=== PATIENT | female | born 1970 | race American Indian/Alaskan Native ===

== ENCOUNTER 2019-05-13 23:52 | Inpatient (IN) | payer MEDICAID ==
--- NOTE | 2019-05-14 00:13 | EDM.PDOC ---
ED HPI GENERAL MEDICAL PROBLEM - General Chief Complaint: Diabetic Complaint Stated Complaint: [facility] Time Seen by Provider: 05/14/19 00:03 - History of Present Illness INITIAL COMMENTS - FREE TEXT/NARRATIVE: 48-year-old female presents to the emergency room with some diabetic complications The patient was on a bus ride from [place] to [place] but could not give herself her insulin because she did not have needles. Patient also complains that she has had a cough for about a week. And her leg hurts apparently this is chronic. 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 She denies chest pain breathing difficulties or shortness of breath she has had no nausea vomiting or abdominal difficulties. Headache Pain Score (Numeric/FACES): 6 - Related Data Allergies Allergy/AdvReac Type Severity Reaction Status Date / Time No Known Allergies Allergy Verified 05/13/19 23:58 Home Meds: Home Meds . [Unable to Verify Home Med List] 05/14/19 [History] ED ROS GENERAL - Review of Systems Review Of Systems: See Below Constitutional: Reports: No Symptoms. Denies: Fever, Chills HEENT: Reports: No Symptoms Respiratory: Reports: Cough. Denies: Sputum Cardiovascular: Reports: No Symptoms Endocrine: Reports: No Symptoms GI/Abdominal: Reports: No Symptoms, Mucous in Stool : Reports: No Symptoms Musculoskeletal: Reports: Other (Leg pain almost suspect neuropathy) ED EXAM GENERAL NO PERIP PULSE - Physical Exam Exam: See Below Exam Limited By: No Limitations General Appearance: Alert, Other (Anxious and possibly under the influence of something) Eye Exam: Bilateral Eye: Normal Inspection Ears: Normal External Exam, Normal Canal, Hearing Grossly Normal, Normal TMs Nose: Normal Inspection, Normal Mucosa, No Blood Throat/Mouth: Normal Inspection, Normal Lips, Normal Gums, Normal Oropharynx, Normal Voice, No Airway Compromise Head: Atraumatic, Normocephalic Neck: Normal Inspection, Supple, Non-Tender, Full Range of Motion Respiratory/Chest: No Respiratory Distress, Lungs Clear, Other (Frequent cough sounds to be mostly dry) Cardiovascular: Regular Rate, Rhythm, No Edema, No Murmur GI/Abdominal: Normal Bowel Sounds, Soft, Non-Tender Back Exam: Normal Inspection. No: CVA Tenderness (L), CVA Tenderness (R) Extremities: Other (Right BKA) Neurological: Alert Psychiatric: Anxious Skin Exam: Warm, Dry, Intact Course - Vital Signs Last Recorded V/S: Last Vital Signs Temp 36.9 C 05/13/19 23:58 Pulse 109 H 05/13/19 23:58 Resp 18 05/13/19 23:58 BP 138/102 H 05/13/19 23:58 Pulse Ox 99 05/14/19 22:29 - Orders/Labs/Meds Orders: Active Orders 24 hr Category Date Time Status POC Glucose [Blood Glucose Check, Bedside] [RC] ONETIME Care 05/14/19 01:45 Active RT Aerosol Therapy [RC] ASDIRECTED Care 05/14/19 22:29 Active Head wo Cont [CT] Stat Exams 05/14/19 22:33 Taken Labs: Laboratory Tests 05/14/19 05/14/19 05/14/19 Range/Units 00:34 00:34 00:34 WBC 9.65 (3.98-10.04) K/mm3 RBC 3.86 L (3.98-5.22) M/mm3 Hgb 9.6 L (11.2-15.7) gm/dl Hct 30.7 L (34.1-44.9) % MCV 79.5 (79.4-94.8) fl MCH 24.9 L (25.6-32.2) pg MCHC 31.3 L (32.2-35.5) g/dl RDW Std Deviation 44.5 (36.4-46.3) fL Plt Count 356 (182-369) K/mm3 MPV 10.1 (9.4-12.3) fl Neutrophils % (Manual) 59 (40-60) % Band Neutrophils % 0 (0-10) % Lymphocytes % (Manual) 30 (20-40) % Atypical Lymphs % 0 % Monocytes % (Manual) 8 (2-10) % Eosinophils % (Manual) 2 (0.7-5.8) % Basophils % (Manual) 1 (0.1-1.2) Platelet Estimate Adequate Plt Morphology Comment See note Hypochromasia 2+ moderate Anisocytosis 2+ moderate Microcytosis 1+ slight RBC Morph Comment Abnormal Sodium 135 L (136-145) mEq/L Potassium 4.4 (3.5-5.1) mEq/L Chloride 104 (98-107) mEq/L Carbon Dioxide 21 (21-32) mEq/L Anion Gap 14.4 (5-15) BUN 27 H (7-18) mg/dL Creatinine 1.9 H (0.55-1.02) mg/dL Est Cr Clr Drug Dosing 35.73 mL/min Estimated GFR (MDRD) 28 (>60) mL/min BUN/Creatinine Ratio 14.2 (14-18) Glucose 198 H (74-106) mg/dL POC Glucose (70-105) mg/dL Calcium 7.6 L (8.5-10.1) mg/dL Total Bilirubin 0.3 (0.2-1.0) mg/dL AST 9 L (15-37) U/L ALT 64 H (14-59) U/L Alkaline Phosphatase 281 H (46-116) U/L Total Protein 6.3 L (6.4-8.2) g/dl Albumin 2.4 L (3.4-5.0) g/dl Globulin 3.9 gm/dL Albumin/Globulin Ratio 0.6 L (1-2) TSH 3rd Generation (0.358-3.74) uIU/mL Urine Color (Yellow) Urine Appearance (Clear) Urine pH (5.0-8.0) Ur Specific [place] (1.005-1.030) Urine Protein (Negative) Urine Glucose (UA) (Negative) Urine Ketones (Negative) Urine Occult Blood (Negative) Urine Nitrite (Negative) Urine Bilirubin (Negative) Urine Urobilinogen (0.2-1.0) Ur Leukocyte Esterase (Negative) Urine RBC (0-5) /hpf Urine WBC (0-5) /hpf Ur Epithelial Cells (0-5) /hpf Urine Bacteria (FEW) /hpf Urine Mucus (FEW) /hpf Urine Opiates Screen (LDFGPA=522) Ur Buprenorphine Scrn (CUTOFF=10) Ur Oxycodone Screen (ERX4AW=930) Urine Methadone Screen (PRIQQV=199) Ur Propoxyphene Screen (RUDPTC=252) Ur Barbiturates Screen (UUVMPQ=154) Ur Tricyclics Screen (IVBKOZ=745) Ur Phencyclidine Scrn (CUTOFF=25) Ur Amphetamine Screen (BIFWSN=566) U Methamphetamines Scrn (TFKHIJ=524) U Benzodiazepines Scrn (HPWFRZ=139) U Cocaine Metab Screen (VMCJAY=019) U Marijuana (THC) Screen (CUTOFF=50) Ethyl Alcohol 0.00 (0.00) gm% Ketones 0.26 (0.0-0.3) mM 05/14/19 05/14/19 05/14/19 Range/Units 00:36 01:02 01:44 WBC (3.98-10.04) K/mm3 RBC (3.98-5.22) M/mm3 Hgb (11.2-15.7) gm/dl Hct (34.1-44.9) % MCV (79.4-94.8) fl MCH (25.6-32.2) pg MCHC (32.2-35.5) g/dl RDW Std Deviation (36.4-46.3) fL Plt Count (182-369) K/mm3 MPV (9.4-12.3) fl Neutrophils % (Manual) (40-60) % Band Neutrophils % (0-10) % Lymphocytes % (Manual) (20-40) % Atypical Lymphs % % Monocytes % (Manual) (2-10) % Eosinophils % (Manual) (0.7-5.8) % Basophils % (Manual) (0.1-1.2) Platelet Estimate Plt Morphology Comment Hypochromasia Anisocytosis Microcytosis RBC Morph Comment Sodium (136-145) mEq/L Potassium (3.5-5.1) mEq/L Chloride (98-107) mEq/L Carbon Dioxide (21-32) mEq/L Anion Gap (5-15) BUN (7-18) mg/dL Creatinine (0.55-1.02) mg/dL Est Cr Clr Drug Dosing mL/min Estimated GFR (MDRD) (>60) mL/min BUN/Creatinine Ratio (14-18) Glucose (74-106) mg/dL POC Glucose 169 H 141 H (70-105) mg/dL Calcium (8.5-10.1) mg/dL Total Bilirubin (0.2-1.0) mg/dL AST (15-37) U/L ALT (14-59) U/L Alkaline Phosphatase (46-116) U/L Total Protein (6.4-8.2) g/dl Albumin (3.4-5.0) g/dl Globulin gm/dL Albumin/Globulin Ratio (1-2) TSH 3rd Generation 2.020 (0.358-3.74) uIU/mL Urine Color (Yellow) Urine Appearance (Clear) Urine pH (5.0-8.0) Ur Specific [place] (1.005-1.030) Urine Protein (Negative) Urine Glucose (UA) (Negative) Urine Ketones (Negative) Urine Occult Blood (Negative) Urine Nitrite (Negative) Urine Bilirubin (Negative) Urine Urobilinogen (0.2-1.0) Ur Leukocyte Esterase (Negative) Urine RBC (0-5) /hpf Urine WBC (0-5) /hpf Ur Epithelial Cells (0-5) /hpf Urine Bacteria (FEW) /hpf Urine Mucus (FEW) /hpf Urine Opiates Screen (HHUDID=581) Ur Buprenorphine Scrn (CUTOFF=10) Ur Oxycodone Screen (XYS8ZH=295) Urine Methadone Screen (DRBDLK=393) Ur Propoxyphene Screen (JNGIIS=571) Ur Barbiturates Screen (NKGULN=810) Ur Tricyclics Screen (KYYFZD=949) Ur Phencyclidine Scrn (CUTOFF=25) Ur Amphetamine Screen (AIEHXR=597) U Methamphetamines Scrn (XXJMJC=321) U Benzodiazepines Scrn (SWMEOZ=556) U Cocaine Metab Screen (RMAVRI=906) U Marijuana (THC) Screen (CUTOFF=50) Ethyl Alcohol (0.00) gm% Ketones (0.0-0.3) mM 05/14/19 05/14/19 05/14/19 Range/Units 02:41 03:40 03:40 WBC (3.98-10.04) K/mm3 RBC (3.98-5.22) M/mm3 Hgb (11.2-15.7) gm/dl Hct (34.1-44.9) % MCV (79.4-94.8) fl MCH (25.6-32.2) pg MCHC (32.2-35.5) g/dl RDW Std Deviation (36.4-46.3) fL Plt Count (182-369) K/mm3 MPV (9.4-12.3) fl Neutrophils % (Manual) (40-60) % Band Neutrophils % (0-10) % Lymphocytes % (Manual) (20-40) % Atypical Lymphs % % Monocytes % (Manual) (2-10) % Eosinophils % (Manual) (0.7-5.8) % Basophils % (Manual) (0.1-1.2) Platelet Estimate Plt Morphology Comment Hypochromasia Anisocytosis Microcytosis RBC Morph Comment Sodium (136-145) mEq/L Potassium (3.5-5.1) mEq/L Chloride (98-107) mEq/L Carbon Dioxide (21-32) mEq/L Anion Gap (5-15) BUN (7-18) mg/dL Creatinine (0.55-1.02) mg/dL Est Cr Clr Drug Dosing mL/min Estimated GFR (MDRD) (>60) mL/min BUN/Creatinine Ratio (14-18) Glucose (74-106) mg/dL POC Glucose 143 H (70-105) mg/dL Calcium (8.5-10.1) mg/dL Total Bilirubin (0.2-1.0) mg/dL AST (15-37) U/L ALT (14-59) U/L Alkaline Phosphatase (46-116) U/L Total Protein (6.4-8.2) g/dl Albumin (3.4-5.0) g/dl Globulin gm/dL Albumin/Globulin Ratio (1-2) TSH 3rd Generation (0.358-3.74) uIU/mL Urine Color Yellow (Yellow) Urine Appearance Clear (Clear) Urine pH 6.5 (5.0-8.0) Ur Specific [place] 1.020 (1.005-1.030) Urine Protein 3+ H (Negative) Urine Glucose (UA) 1+ H (Negative) Urine Ketones Negative (Negative) Urine Occult Blood Negative (Negative) Urine Nitrite Negative (Negative) Urine Bilirubin Negative (Negative) Urine Urobilinogen 0.2 (0.2-1.0) Ur Leukocyte Esterase Negative (Negative) Urine RBC 0-5 (0-5) /hpf Urine WBC 0-5 (0-5) /hpf Ur Epithelial Cells 0-5 (0-5) /hpf Urine Bacteria Few (FEW) /hpf Urine Mucus Not seen (FEW) /hpf Urine Opiates Screen Negative (LFJSFU=630) Ur Buprenorphine Scrn Negative (CUTOFF=10) Ur Oxycodone Screen Negative (ACQ9XK=886) Urine Methadone Screen Negative (QXJJTD=249) Ur Propoxyphene Screen Negative (OIXCOH=244) Ur Barbiturates Screen Negative (XVVGHK=310) Ur Tricyclics Screen Negative (ZNLTOM=172) Ur Phencyclidine Scrn Negative (CUTOFF=25) Ur Amphetamine Screen Presumptive positive H (SVYMBD=732) U Methamphetamines Scrn Presumptive positive H (YZSGDH=956) U Benzodiazepines Scrn Negative (XEGZFS=558) U Cocaine Metab Screen Negative (DBALWM=639) U Marijuana (THC) Screen Negative (CUTOFF=50) Ethyl Alcohol (0.00) gm% Ketones (0.0-0.3) mM 05/14/19 Range/Units 08:00 WBC (3.98-10.04) K/mm3 RBC (3.98-5.22) M/mm3 Hgb (11.2-15.7) gm/dl Hct (34.1-44.9) % MCV (79.4-94.8) fl MCH (25.6-32.2) pg MCHC (32.2-35.5) g/dl RDW Std Deviation (36.4-46.3) fL Plt Count (182-369) K/mm3 MPV (9.4-12.3) fl Neutrophils % (Manual) (40-60) % Band Neutrophils % (0-10) % Lymphocytes % (Manual) (20-40) % Atypical Lymphs % % Monocytes % (Manual) (2-10) % Eosinophils % (Manual) (0.7-5.8) % Basophils % (Manual) (0.1-1.2) Platelet Estimate Plt Morphology Comment Hypochromasia Anisocytosis Microcytosis RBC Morph Comment Sodium (136-145) mEq/L Potassium (3.5-5.1) mEq/L Chloride (98-107) mEq/L Carbon Dioxide (21-32) mEq/L Anion Gap (5-15) BUN (7-18) mg/dL Creatinine (0.55-1.02) mg/dL Est Cr Clr Drug Dosing mL/min Estimated GFR (MDRD) (>60) mL/min BUN/Creatinine Ratio (14-18) Glucose (74-106) mg/dL POC Glucose 64 L (70-105) mg/dL Calcium (8.5-10.1) mg/dL Total Bilirubin (0.2-1.0) mg/dL AST (15-37) U/L ALT (14-59) U/L Alkaline Phosphatase (46-116) U/L Total Protein (6.4-8.2) g/dl Albumin (3.4-5.0) g/dl Globulin gm/dL Albumin/Globulin Ratio (1-2) TSH 3rd Generation (0.358-3.74) uIU/mL Urine Color (Yellow) Urine Appearance (Clear) Urine pH (5.0-8.0) Ur Specific [place] (1.005-1.030) Urine Protein (Negative) Urine Glucose (UA) (Negative) Urine Ketones (Negative) Urine Occult Blood (Negative) Urine Nitrite (Negative) Urine Bilirubin (Negative) Urine Urobilinogen (0.2-1.0) Ur Leukocyte Esterase (Negative) Urine RBC (0-5) /hpf Urine WBC (0-5) /hpf Ur Epithelial Cells (0-5) /hpf Urine Bacteria (FEW) /hpf Urine Mucus (FEW) /hpf Urine Opiates Screen (VOSSWO=775) Ur Buprenorphine Scrn (CUTOFF=10) Ur Oxycodone Screen (XAV4SN=357) Urine Methadone Screen (IYEDER=530) Ur Propoxyphene Screen (TEURYT=984) Ur Barbiturates Screen (SXNANW=494) Ur Tricyclics Screen (AWLKWX=468) Ur Phencyclidine Scrn (CUTOFF=25) Ur Amphetamine Screen (IRFNSA=228) U Methamphetamines Scrn (GXGNUS=763) U Benzodiazepines Scrn (XOPCVK=759) U Cocaine Metab Screen (NXZCXT=115) U Marijuana (THC) Screen (CUTOFF=50) Ethyl Alcohol (0.00) gm% Ketones (0.0-0.3) mM Meds: Medications Discontinued Medications Generic Name Dose Route Start Last Admin Trade Name Freq PRN Reason Stop Dose Admin Albuterol/Ipratropium 3 ml 05/14/19 22:29 05/14/19 22:46 Duoneb 3.0-0.5 Mg/3 Ml NEB 05/14/19 22:30 3 ml ONETIME ONE Administration Lorazepam 1 mg 05/14/19 00:16 Ativan IVPUSH 05/14/19 00:17 ONETIME ONE Lorazepam 1 mg 05/14/19 00:20 05/14/19 00:25 Ativan IM 05/14/19 00:21 1 mg ONETIME ONE Administration - Re-Assessments/Exams Free Text/Narrative Re-Assessment/Exam: 05/14/19 04:41 Laboratory evaluation is remarkable for amphetamines and methamphetamines in her urine toxicology detected alcohol normal. Significant anemia and marked renal insufficiency most likely due to poorly controlled diabetes. She is getting to establish with a regular provider when she gets to [place]. 05/14/19 22:30 Now more talkative and it appears her situation is much more complex than we once believed. Social work did get involved and does not believe the patient is safe for discharge. She has underlying psychiatric history she has been in inpatient psychiatric care but she cannot recall for what. She is got a history of COPD diabetes depression she uses meth on an almost daily basis the patient somewhat poor historian with significant paranoid thinking and disorganized thought process. At this point we will have psychiatric backup I will try and get the patient admitted in [place] where they have psychiatric services are social insurance specialist is working with their social insurance specialist 05/14/19 22:55 Getting accepted to [place] is not a possibility at this time. Discussed patient's case with Dr. Kemp who will see the patient in the morning. He has a head CT pending and we will get a TSH. 05/15/19 00:04 Departure - Departure Time of Disposition: 23:00 Disposition: Refer to Observation Clinical Impression: Poorly controlled diabetes mellitus, Renal insufficiency, Drug abuse, Anemia - Discharge Information Sepsis Event Note - Evaluation Sepsis Screening Result: No Definite Risk - Focused Exam Vital Signs: Vital Signs Pulse Ox 05/14/19 22:29 99 Date Exam was Performed: 05/15/19 Time Exam was Performed: 00:04 - My Orders Last 24 Hours: My Active Orders 05/14/19 01:45 POC Glucose [Blood Glucose Check, Bedside] [RC] ONETIME 05/14/19 22:29 RT Aerosol Therapy [RC] ASDIRECTED 05/14/19 22:33 Head wo Cont [CT] Stat - Assessment/Plan Last 24 Hours: My Active Orders 05/14/19 01:45 POC Glucose [Blood Glucose Check, Bedside] [RC] ONETIME 05/14/19 22:29 RT Aerosol Therapy [RC] ASDIRECTED 05/14/19 22:33 Head wo Cont [CT] Stat
[2019-05-14] MEDS ORDERED: LORazepam 2 MG/ML SDV IVPUSH ONE (00:16)
[2019-05-14] MEDS ORDERED: LORazepam 2 MG/ML SDV IM ONE (00:20)
--- NOTE | 2019-05-14 07:25 | CR ---
Chest: Frontal view of the chest was obtained. Comparison: No prior chest imaging is available. Findings: Heart size and mediastinum are normal. Poor inspiratory effort is noted. Lungs show no definite acute parenchymal change. Bony structures are grossly intact. Impression: 1. Poor inspiratory effort. 2. Nothing acute is definitely appreciated. Diagnostic code #2 This report was dictated in [place] Standard Time I agree with preliminary report from [facility], finalized on 05/14/19, 3:30 AM Central Time
[2019-05-14] MEDS ORDERED: Albuterol/Ipratropium 3.0-0.5 MG/3 ML Neb Soln NEB ONE (22:29)
[2019-05-15] MEDS ORDERED: Albuterol/Ipratropium 3.0-0.5 MG/3 ML Neb Soln NEB PRN (00:40)
[2019-05-15] MEDS ORDERED: Haloperidol Lactate 5 MG/ML SDV IM PRN (00:41)
[2019-05-15] MEDS: Insulin Lispro 100 Units/ML 3 ML Vial SUBCUT SCH ×5 (06:19→22:18)
--- NOTE | 2019-05-15 07:15 | CT ---
Head CT Technique: Multiple axial sections through the brain were obtained. Intravenous contrast was not utilized. Comparison: No prior intracranial imaging. Findings: Mild motion artifact is identified. Within this limitation, ventricles along with basal cisterns and sulci over the convexities appear within normal limits for the patient's age. No abnormal parenchymal densities are seen. No evidence of intracranial hemorrhage. No midline shift or mass effect is seen. Mucosal thickening is noted within both maxillary sinuses as well as within the ethmoid sinuses which is moderate in severity. Minimal mucosal thickening is noted within portions of the sphenoid sinus. No air-fluid levels are seen. Mastoid sinuses are clear. No acute calvarial abnormality is appreciated. Impression: 1. Motion artifact. 2. Mucosal thickening within the paranasal sinuses as noted above which I believe is most likely due to chronic sinusitis. 3. No acute intracranial abnormality is appreciated. Diagnostic code #3 This report was dictated in [place] Standard Time I agree with preliminary report from [facility], finalized on 05/15/19, 12:36 AM Central Time
--- NOTE | 2019-05-15 07:37 | PCM.HP.2 ---
H&P History of Present Illness - General Date of Service: 05/15/19 Admit Problem/Dx: Admission Diagnosis/Problem Admission Diagnosis/Problem Diabetes mellitus - History of Present Illness Initial Comments - Free Text/Narative: Information obtained by chart review Patient came in for elevated glucose which resolved in ED. She developed psychosis episode yesterday and transfer was attempted to [place] but was eventually declined by receiving team due to poor bed availability Please review ED MD's note as follows "Social work did get involved and does not believe the patient is safe for discharge. She has underlying psychiatric history she has been in inpatient psychiatric care but she cannot recall for what. She is got a history of COPD diabetes depression she uses meth on an almost daily basis the patient somewhat poor historian with significant paranoid thinking and disorganized thought process. At this point we will have psychiatric backup I will try and get the patient admitted in [place] where they have psychiatric services are social work nurse is working with their social work nurse 05/14/19 22:55 Getting accepted to [place] is not a possibility at this time." Headache Pain Score (Numeric/FACES): 6 - Related Data Allergies/Adverse Reactions: Allergies Allergy/AdvReac Type Severity Reaction Status Date / Time shellfish derived Allergy Unknown Other Verified 05/15/19 00:51 Home Medications: Home Meds DULoxetine HCl [Duloxetine HCl] 20 mg PO DAILY 05/15/19 [History] Ergocalciferol (Vitamin D2) [Vitamin D2] 50,000 unit PO MO 05/15/19 [History] Gabapentin [Neurontin] 900 mg PO TID 05/15/19 [History] Insulin Glarg,Human.Rec.Analog [Lantus] 80 units SQ BID 05/15/19 [History] Omeprazole 20 mg PO DAILY 05/15/19 [History] amLODIPine [Norvasc] 5 mg PO DAILY 05/15/19 [History] lisinopriL [Lisinopril] 40 mg PO DAILY 05/15/19 [History] Past Medical History HEENT History: Reports: Glaucoma Cardiovascular History: Reports: High Cholesterol, Hypertension Respiratory History: Reports: COPD Genitourinary History: Reports: Chronic Renal Insuffiency Musculoskeletal History: Reports: Amputation, Gout Neurological History: Reports: CVA Other Neuro History: "maybe" Psychiatric History: Reports: Addiction, Anxiety, Depression Endocrine/Metabolic History: Reports: Diabetes, Type II - Infectious Disease History Infectious Disease History: Reports: Hepatitis C - Past Surgical History GI Surgical History: Reports: Cholecystectomy Social & Family History - Family History Family Medical History: Noncontributory - Tobacco Use Smoking Status *Q: Current Every Day Smoker Years of Tobacco use: 30 Packs/Tins Daily: 0.5 - Caffeine Use Caffeine Use: Reports: Coffee Other Caffeine Use: 3 cup/day - Recreational Drug Use Recreational Drug Use: Yes Recreational Drug Type: Reports: Methamphetamine Recreational Drug Use Frequency: Weekly H&P Review of Systems - Review of Systems: Review Of Systems: Unable To Obtain Reason Not Obtained: Patient will not elaborate on details Exam - Exam Exam: See Below - Vital Signs Vital Signs: Last Vital Signs Temp 98.8 F 05/15/19 04:31 Pulse 88 05/15/19 04:31 Resp 18 05/15/19 04:31 BP 148/61 H 05/15/19 04:31 Pulse Ox 95 05/15/19 04:31 Weight: 112.854 kg - Exam Physical Exam Comments:: General Appearance: Alert, Other (Anxious and possibly under the influence of something) Eye Exam: Bilateral Eye: Normal Inspection Ears: Normal External Exam, Normal Canal, Hearing Grossly Normal, Normal TMs Nose: Normal Inspection, Normal Mucosa, No Blood Throat/Mouth: Normal Inspection, Normal Lips, Normal Gums, Normal Oropharynx, Normal Voice, No Airway Compromise Head: Atraumatic, Normocephalic Neck: Normal Inspection, Supple, Non-Tender, Full Range of Motion Respiratory/Chest: No Respiratory Distress, Lungs Clear, Other (Frequent cough sounds to be mostly dry) Cardiovascular: Regular Rate, Rhythm, No Edema, No Murmur GI/Abdominal: Normal Bowel Sounds, Soft, Non-Tender Back Exam: Normal Inspection. No: CVA Tenderness (L), CVA Tenderness (R) Extremities: Other (Right BKA) Neurological: Alert Psychiatric: Anxious Skin Exam: Warm, Dry, Intact - Patient Data Result Diagrams: 05/14/19 00:34 05/14/19 00:34 Sepsis Event Note - Evaluation Sepsis Screening Result: No Definite Risk - Focused Exam Vital Signs: Vital Signs Temp Pulse Resp BP BP Pulse Ox Pulse Ox 05/15/19 04:31 98.8 F 88 18 148/61 H 95 05/15/19 00:16 139/86 05/14/19 23:58 98.6 F 93 20 159/76 H 94 L 05/14/19 22:29 99 Date Exam was Performed: 05/15/19 Time Exam was Performed: 07:38 - Problem List (1) Psychiatric disorder SNOMED Code(s): 57811273 ICD Code: F99 - MENTAL DISORDER, NOT OTHERWISE SPECIFIED Status: Acute Current Visit: Yes (2) Drug abuse SNOMED Code(s): 60252896 ICD Code: F19.10 - OTHER PSYCHOACTIVE SUBSTANCE ABUSE, UNCOMPLICATED Status : Acute Current Visit: Yes (3) Chronic kidney disease SNOMED Code(s): 413704487 ICD Code: N18.9 - CHRONIC KIDNEY DISEASE, UNSPECIFIED Status: Acute Current Visit: Yes (4) Chronic anemia SNOMED Code(s): 532335454 ICD Code: D64.9 - ANEMIA, UNSPECIFIED Status: Acute Current Visit: Yes (5) Chronic hyponatremia SNOMED Code(s): 87012105 ICD Code: E87.1 - HYPO-OSMOLALITY AND HYPONATREMIA Status: Acute Current Visit: Yes (6) Poorly controlled diabetes mellitus SNOMED Code(s): 073736675, 192030719 ICD Code: E11.65 - TYPE 2 DIABETES MELLITUS WITH HYPERGLYCEMIA Status: Acute Current Visit: Yes (7) Hypertension SNOMED Code(s): 95388547 ICD Code: I10 - ESSENTIAL (PRIMARY) HYPERTENSION Status: Acute Current Visit: Yes Problem List Initiated/Reviewed/Updated: Yes Assessment/Plan Comment:: Psychiatric disorder with psychosis Drug abuse Psychosis on day of admission Transfer to inpatient psychiatry not possible due to poor bed availability PLAN - Continue home meds - Consult therapeutic case manager and social service liaison Chronic kidney disease, stage IV Chronic anemia GFR on admission 28 Hb 9.8, normocytic normochromic PLAN - Monitor urine output - Renally dosed medications - Avoid nephrotoxic agents Poorly controlled diabetes mellitus Glucose on admission 169 Home management with glargine 80u BID PLAN - Accu-checks TID Ac and HS - New HbA1c - Glargine 60u BID - Hypoglycemia protocol - Moderate intensity sliding scale Hypertension BP on admission 138/102 On home amlodipine and lisinopril PLAN - Continue home medications - PRN hydralazine - Monitor VS PROPHYLAXIS DVT- Compression stockings GI- not indicated CODE STATUS: FULL CODE DISPOSITION: Patient will be admitted to medical floor pending transfer to inpatient psychiatry when available
[2019-05-15] MEDS ORDERED: Ondansetron 4 MG/2 ML SDV IV PRN (07:40)
[2019-05-15] MEDS ORDERED: Ondansetron 4 MG Tab.DIS PO PRN (07:40)
[2019-05-15] MEDS ORDERED: 50% Dextrose in Water 50 ML Syringe IVPUSH PRN (07:43)
[2019-05-15 08:54] LABS: HEMOGLOBIN A1C 11.6 % (4.50-6.20)
[2019-05-15] MEDS: Lisinopril 20 MG Tab PO SCH (09:41)
[2019-05-15] MEDS: Gabapentin 300 MG Cap PO SCH ×3 (09:42→20:52)
[2019-05-15] MEDS: DULoxetine 20 MG Cap PO SCH (09:42)
[2019-05-15] MEDS: amLODIPine 5 MG Tab PO SCH (09:42)
[2019-05-15] MEDS: Nicotine 14 MG/24 Hr Patch TRDERM SCH (12:21)
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
[2019-05-15] MEDS ORDERED: hydrALAZINE 20 MG/ML SDV IVPUSH PRN (14:16)
[2019-05-15] MEDS ORDERED: Acetaminophen 325 MG Tab PO PRN (15:06)
[2019-05-15] MEDS: Insulin Glarg,Human.Rec.Analog 100 Unit/ML SUBCUT SCH (15:14)
--- NOTE | 2019-05-16 06:59 | PCM.PN ---
- General Info Date of Service: 05/16/19 Admission Dx/Problem (Free Text): Admission Diagnosis/Problem Admission Diagnosis/Problem Diabetes mellitus Subjective Update: Follow Up Functional Status: Reports: Pain Controlled, Tolerating Diet, Urinating - Review of Systems General: Reports: Fatigue, Chills (chronic). Denies: Fever, Malaise HEENT: Reports: No Symptoms Pulmonary: Denies: Shortness of Breath, Cough Cardiovascular: Denies: Chest Pain, Dyspnea on Exertion, Lightheadedness Gastrointestinal: Denies: Abdominal Pain, Nausea, Vomiting Genitourinary: Reports: No Symptoms Musculoskeletal: Reports: Back Pain (chronic and intermittent), Leg Pain ( chronic and intermittent) Skin: Reports: No Symptoms Neurological: Denies: Confusion, Numbness, Seizure Psychiatric: Denies: Depression, Anxiety, Agitation, Hallucinations, Suicidal Ideation Systems Review Comment:: Slept "kind of good" last night. She feels tired this AM. She complaints of back and leg pain which is chronic to her. Her BS remains uncontrolled. - Patient Data Vitals - Most Recent: Last Vital Signs Temp 36.9 C 05/16/19 03:56 Pulse 83 05/16/19 03:56 Resp 20 05/16/19 03:56 BP 137/78 05/16/19 03:56 Pulse Ox 93 L 05/16/19 03:56 Weight - Most Recent: 112.854 kg I&O - Last 24 Hours: Intake & Output 05/15/19 05/15/19 05/16/19 14:59 22:59 06:59 Intake Total 340 1600 840 Output Total 2150 Balance 340 1600 -1310 Lab Results Last 24 Hours: Laboratory Results - last 24 hr 05/14/19 05/15/19 05/15/19 Range/Units 21:29 07:59 07:59 WBC 7.22 (3.98-10.04) K/mm3 RBC 4.13 (3.98-5.22) M/mm3 Hgb 10.3 L (11.2-15.7) gm/dl Hct 33.1 L (34.1-44.9) % MCV 80.1 (79.4-94.8) fl MCH 24.9 L (25.6-32.2) pg MCHC 31.1 L (32.2-35.5) g/dl RDW Std Deviation 45.0 (36.4-46.3) fL Plt Count 471 H D (182-369) K/mm3 MPV 9.2 L (9.4-12.3) fl Neut % (Auto) 48.6 (34.0-71.1) % Lymph % (Auto) 32.1 (19.3-51.7) % [place] % (Auto) 10.2 (4.7-12.5) % Eos % (Auto) 8.4 H (0.7-5.8) Baso % (Auto) 0.6 (0.1-1.2) % Neut # (Auto) 3.50 (1.56-6.13) K/mm3 Lymph # (Auto) 2.32 (1.18-3.74) K/mm3 [place] # (Auto) 0.74 H (0.24-0.36) K/mm3 Eos # (Auto) 0.61 H (0.04-0.36) K/mm3 Baso # (Auto) 0.04 (0.01-0.08) K/mm3 Sodium 141 (136-145) mEq/L Potassium 4.8 (3.5-5.1) mEq/L Chloride 108 H (98-107) mEq/L Carbon Dioxide 23 (21-32) mEq/L Anion Gap 14.8 (5-15) BUN 23 H (7-18) mg/dL Creatinine 1.7 H (0.55-1.02) mg/dL Est Cr Clr Drug Dosing 39.94 mL/min Estimated GFR (MDRD) 32 (>60) mL/min BUN/Creatinine Ratio 13.5 L (14-18) Glucose 118 H (74-106) mg/dL POC Glucose 146 H (70-105) mg/dL Hemoglobin A1c (4.50-6.20) % Calcium 8.2 L (8.5-10.1) mg/dL Phosphorus 3.6 (2.6-4.7) mg/dL Magnesium 1.9 (1.8-2.4) mg/dl 05/15/19 05/15/19 05/15/19 Range/Units 07:59 11:16 17:26 WBC (3.98-10.04) K/mm3 RBC (3.98-5.22) M/mm3 Hgb (11.2-15.7) gm/dl Hct (34.1-44.9) % MCV (79.4-94.8) fl MCH (25.6-32.2) pg MCHC (32.2-35.5) g/dl RDW Std Deviation (36.4-46.3) fL Plt Count (182-369) K/mm3 MPV (9.4-12.3) fl Neut % (Auto) (34.0-71.1) % Lymph % (Auto) (19.3-51.7) % [place] % (Auto) (4.7-12.5) % Eos % (Auto) (0.7-5.8) Baso % (Auto) (0.1-1.2) % Neut # (Auto) (1.56-6.13) K/mm3 Lymph # (Auto) (1.18-3.74) K/mm3 [place] # (Auto) (0.24-0.36) K/mm3 Eos # (Auto) (0.04-0.36) K/mm3 Baso # (Auto) (0.01-0.08) K/mm3 Sodium (136-145) mEq/L Potassium (3.5-5.1) mEq/L Chloride (98-107) mEq/L Carbon Dioxide (21-32) mEq/L Anion Gap (5-15) BUN (7-18) mg/dL Creatinine (0.55-1.02) mg/dL Est Cr Clr Drug Dosing mL/min Estimated GFR (MDRD) (>60) mL/min BUN/Creatinine Ratio (14-18) Glucose (74-106) mg/dL POC Glucose 225 H 242 H (70-105) mg/dL Hemoglobin A1c 11.60 H (4.50-6.20) % Calcium (8.5-10.1) mg/dL Phosphorus (2.6-4.7) mg/dL Magnesium (1.8-2.4) mg/dl 05/15/19 Range/Units 20:44 WBC (3.98-10.04) K/mm3 RBC (3.98-5.22) M/mm3 Hgb (11.2-15.7) gm/dl Hct (34.1-44.9) % MCV (79.4-94.8) fl MCH (25.6-32.2) pg MCHC (32.2-35.5) g/dl RDW Std Deviation (36.4-46.3) fL Plt Count (182-369) K/mm3 MPV (9.4-12.3) fl Neut % (Auto) (34.0-71.1) % Lymph % (Auto) (19.3-51.7) % [place] % (Auto) (4.7-12.5) % Eos % (Auto) (0.7-5.8) Baso % (Auto) (0.1-1.2) % Neut # (Auto) (1.56-6.13) K/mm3 Lymph # (Auto) (1.18-3.74) K/mm3 [place] # (Auto) (0.24-0.36) K/mm3 Eos # (Auto) (0.04-0.36) K/mm3 Baso # (Auto) (0.01-0.08) K/mm3 Sodium (136-145) mEq/L Potassium (3.5-5.1) mEq/L Chloride (98-107) mEq/L Carbon Dioxide (21-32) mEq/L Anion Gap (5-15) BUN (7-18) mg/dL Creatinine (0.55-1.02) mg/dL Est Cr Clr Drug Dosing mL/min Estimated GFR (MDRD) (>60) mL/min BUN/Creatinine Ratio (14-18) Glucose (74-106) mg/dL POC Glucose 243 H (70-105) mg/dL Hemoglobin A1c (4.50-6.20) % Calcium (8.5-10.1) mg/dL Phosphorus (2.6-4.7) mg/dL Magnesium (1.8-2.4) mg/dl Med Orders - Current: Current Medications Acetaminophen (Tylenol) 650 mg PO Q4H PRN PRN Reason: Pain Last Admin: 05/15/19 15:13 Dose: 650 mg Albuterol (Proventil Hfa) 1 - 2 gm INH Q4HR PRN PRN Reason: Shortness of Breath Albuterol/Ipratropium (Duoneb 3.0-0.5 Mg/3 Ml) 3 ml NEB Q4HRRT PRN PRN Reason: Shortness of Breath Amlodipine Besylate (Norvasc) 5 mg PO DAILY [facility] Last Admin: 05/15/19 09:42 Dose: 5 mg Dextrose/Water (Dextrose 50% In Water) 50 ml IVPUSH ASDIRECTED PRN PRN Reason: Hypoglycemia Duloxetine HCl (Cymbalta) 20 mg PO DAILY [facility] Last Admin: 05/15/19 09:42 Dose: 20 mg Gabapentin (Neurontin) 900 mg PO TID [facility] Last Admin: 05/15/19 20:52 Dose: 900 mg Haloperidol Lactate (Haldol) 2.5 mg IM Q4H PRN PRN Reason: hallucination Hydralazine HCl (Apresoline) 20 mg IVPUSH Q4H PRN PRN Reason: Hypertension Insulin Glargine (Lantus) 60 unit SUBCUT BIDAC [facility] Last Admin: 05/15/19 15:14 Dose: 60 units Insulin Human Lispro (Humalog) 0 unit SUBCUT QIDACANDBED [facility]; Protocol Last Admin: 05/15/19 22:18 Dose: Not Given Lisinopril (Prinivil) 40 mg PO DAILY [facility] Last Admin: 05/15/19 09:41 Dose: 40 mg Miscellaneous Information (Remove Patch) 1 ea TRDERM Q24H [facility] Mometasone Furoate/Formoterol Fumar (Dulera 100-5 Mcg) 2 puff IH DAILY [facility] Nicotine (Habitrol) 14 mg TRDERM Q24H [facility] Last Admin: 05/15/19 12:21 Dose: 14 mg Ondansetron HCl (Zofran Odt) 4 mg PO Q6H PRN PRN Reason: nausea, able to take PO Ondansetron HCl (Zofran) 4 mg IV Q6H PRN PRN Reason: Nausea/Vomiting Discontinued Medications Albuterol/Ipratropium (Duoneb 3.0-0.5 Mg/3 Ml) 3 ml NEB ONETIME ONE Stop: 05/14/19 22:30 Last Admin: 05/14/19 22:46 Dose: 3 ml Lorazepam (Ativan) 1 mg IVPUSH ONETIME ONE Stop: 05/14/19 00:17 Last Admin: 05/15/19 01:37 Dose: Not Given Lorazepam (Ativan) 1 mg IM ONETIME ONE Stop: 05/14/19 00:21 Last Admin: 05/14/19 00:25 Dose: 1 mg - Exam General: Alert, Oriented, Cooperative, No Acute Distress, Other (Obese) HEENT: Pupils Equal, Pupils Reactive, EOMI, Mucous Membr. Moist/Ryan Neck: Supple, Trachea Midline, No JVD Lungs: Clear to Auscultation, Normal Respiratory Effort, Wheezing Cardiovascular: Regular Rate, Regular Rhythm GI/Abdominal Exam: Normal Bowel Sounds, Soft, Non-Tender, No Organomegaly, No Distention, No Abnormal Bruit, No Mass, Other (Obese) (Female) Exam: Deferred Back Exam: Normal Inspection, Decreased Range of Motion, Vertebral Tenderness Extremities: Normal Inspection, Normal Range of Motion, Non-Tender, No Pedal Edema, Normal Capillary Refill, Leg Pain (chronic on left lower extremity), Other (Right BKA). No: Mottled, Redness Skin: Warm, Dry, Intact Neurological: No New Focal Deficit, Other (baseline leg pain and peripheral neuropathy). No: Normal Gait Psy/Mental Status: Alert, Normal Affect, Normal Mood Sepsis Event Note - Evaluation Sepsis Screening Result: No Definite Risk - Focused Exam Vital Signs: Vital Signs Temp Pulse Resp BP Pulse Ox 05/16/19 03:56 36.9 C 83 20 137/78 93 L 05/15/19 20:41 36.8 C 90 14 145/66 H 98 Date Exam was Performed: 05/16/19 Time Exam was Performed: 21:10 - Problem List Review Problem List Initiated/Reviewed/Updated: Yes - My Orders Last 24 Hours: My Active Orders 05/15/19 09:22 Consult to Physician [CONS] Routine 05/15/19 09:23 Notify Provider Consults [RC] ASDIRECTED 05/15/19 12:30 Nicotine [Habitrol] 14 mg TRDERM Q24H 05/15/19 13:09 Patient Status [ADT] Routine 05/15/19 14:16 hydrALAZINE [Apresoline] 20 mg IVPUSH Q4H PRN 05/15/19 14:18 Consult to Occupational Therapy [OT Evaluation and Treatment] [CONS] Routine PT Evaluation and Treatment [CONS] Routine 05/15/19 14:22 Diabetes Education [RC] DAILY 05/15/19 15:06 Acetaminophen [Tylenol] 650 mg PO Q4H PRN 05/15/19 20:26 Albuterol [Proventil HFA] 1 - 2 gm INH Q4HR PRN 05/16/19 06:52 GLUCOSE RANDOM [CHEM] Stat 05/16/19 09:00 Mometasone/Formoterol [Dulera 100-5 MCG] 2 puff IH DAILY 05/16/19 12:30 Remove Patch 1 ea TRDERM Q24H - Plan Plan:: Psychiatric disorder with psychosis Drug abuse Psychosis on day of admission Transfer to inpatient psychiatry not possible due to poor bed availability PLAN - Continue home meds - Consult child welfare caseworker and social service agency director Chronic kidney disease, stage IV Chronic anemia GFR on admission 28 Hb 9.8, normocytic normochromic PLAN - Monitor urine output - Renally dosed medications - Avoid nephrotoxic agents Poorly controlled diabetes mellitus Glucose on admission 169 Home management with glargine 80u BID BS still not well controlled-still in the 200s PLAN - Accu-checks AC/HS with high dose level - New HbA1c level is 11.60 - Glargine 60u BID--> switch back to home dose of 80 units SubQ BID - Hypoglycemia protocol - Change ISS to High intensity level Hypertension, Improving BP on admission 138/102 On home amlodipine and lisinopril PLAN - Continue home medications - PRN hydralazine - Will add HCTZ - Monitor VS Back and Leg Pain Chronic to her Obesity to contributory to her pain Advised LSM PLAN; Resume home medications Oral PRN [place] if no relief with home medications Obesity Class II BMI of 37 PLAN: Advised LSM Dietary consult for weight management Saturday PROPHYLAXIS DVT- Compression stockings GI- not indicated CODE STATUS: FULL CODE DISPOSITION: Her blood pressure is improving but her glucose remains uncontrolled. She is not medically ready for inpatient psychiatry treatment. We will continue to treat her medically.
[2019-05-16] MEDS: Insulin Glarg,Human.Rec.Analog 100 Unit/ML SUBCUT SCH ×2 (07:53→16:14)
[2019-05-16] MEDS: Formoterol/Mometasone 100-5 MCG 8.8 GM Inhaler IH SCH (08:12)
[2019-05-16] MEDS: Insulin Lispro 100 Units/ML 3 ML Vial SUBCUT SCH ×4 (08:36→21:30)
[2019-05-16] MEDS: Gabapentin 300 MG Cap PO SCH ×3 (08:37→21:30)
[2019-05-16] MEDS: DULoxetine 20 MG Cap PO SCH (08:38)
[2019-05-16] MEDS: amLODIPine 5 MG Tab PO SCH (08:41)
[2019-05-16] MEDS: Lisinopril 20 MG Tab PO SCH (08:41)
[2019-05-16] MEDS ORDERED: Ketorolac 15 MG/ML SDV IVPUSH PRN (08:53)
[2019-05-16] MEDS: Acetaminophen/HYDROcodone 325-5 MG Tab PO PRN ×3 (08:59→21:35)
[2019-05-16] MEDS ORDERED: Hydrochlorothiazide 25 MG Tab PO ONE (09:00)
[2019-05-16] MEDS: Albuterol 6.7 GM Inhaler INH PRN (09:01)
[2019-05-16] MEDS: Nicotine 14 MG/24 Hr Patch TRDERM SCH (12:41)
[2019-05-16] MEDS ORDERED: Magnesium Hydroxide 400 MG/5 ML Susp 30 ML Cup PO ONE (18:38)
[2019-05-16] MEDS: Hydrochlorothiazide 12.5 MG Cap PO SCH (18:47)
[2019-05-17] MEDS: Insulin Glarg,Human.Rec.Analog 100 Unit/ML SUBCUT SCH ×2 (07:01→16:34)
[2019-05-17] MEDS: Hydrochlorothiazide 12.5 MG Cap PO SCH ×2 (07:02→14:22)
--- NOTE | 2019-05-17 07:10 | PCM.PN ---
- General Info Date of Service: 05/17/19 Admission Dx/Problem (Free Text): Admission Diagnosis/Problem Admission Diagnosis/Problem Diabetes mellitus Subjective Update: Follow Up Functional Status: Reports: Pain Controlled, Tolerating Diet, Ambulating, Urinating - Review of Systems General: Reports: Malaise. Denies: Fever, Chills HEENT: Reports: No Symptoms Pulmonary: Reports: Cough. Denies: Shortness of Breath Cardiovascular: Denies: Chest Pain, Dyspnea on Exertion, Lightheadedness Gastrointestinal: Denies: Abdominal Pain, Nausea, Vomiting Genitourinary: Reports: No Symptoms Musculoskeletal: Reports: Back Pain, Leg Pain Skin: Denies: Cyanosis, Mottled, Diaphoresis, Rash Neurological: Denies: Confusion, Pre-Existing Deficit, Tingling Psychiatric: Denies: Depression, Anxiety, Agitation, Hallucinations, Suicidal Ideation, Homicidal Ideation Systems Review Comment:: Feels better but did not rest well last night due to restless leg. Her glucose remains uncontrolled but her pressures seems to be improving. - Patient Data Vitals - Most Recent: Last Vital Signs Temp 36.7 C 05/17/19 02:57 Pulse 85 05/17/19 02:57 Resp 18 05/17/19 02:57 BP 134/71 05/17/19 02:57 Pulse Ox 97 05/17/19 02:57 Weight - Most Recent: 107.774 kg I&O - Last 24 Hours: Intake & Output 05/16/19 05/17/19 05/17/19 22:59 06:59 14:59 Intake Total 2680 750 Output Total 1500 3100 Balance 1180 -2350 Lab Results Last 24 Hours: Laboratory Results - last 24 hr 05/16/19 05/16/19 05/16/19 Range/Units 07:18 11:54 16:16 WBC (3.98-10.04) K/mm3 RBC (3.98-5.22) M/mm3 Hgb (11.2-15.7) gm/dl Hct (34.1-44.9) % MCV (79.4-94.8) fl MCH (25.6-32.2) pg MCHC (32.2-35.5) g/dl RDW Std Deviation (36.4-46.3) fL Plt Count (182-369) K/mm3 MPV (9.4-12.3) fl Neut % (Auto) (34.0-71.1) % Lymph % (Auto) (19.3-51.7) % [place] % (Auto) (4.7-12.5) % Eos % (Auto) (0.7-5.8) Baso % (Auto) (0.1-1.2) % Neut # (Auto) (1.56-6.13) K/mm3 Lymph # (Auto) (1.18-3.74) K/mm3 [place] # (Auto) (0.24-0.36) K/mm3 Eos # (Auto) (0.04-0.36) K/mm3 Baso # (Auto) (0.01-0.08) K/mm3 Sodium (136-145) mEq/L Potassium (3.5-5.1) mEq/L Chloride (98-107) mEq/L Carbon Dioxide (21-32) mEq/L Anion Gap (5-15) BUN (7-18) mg/dL Creatinine (0.55-1.02) mg/dL Est Cr Clr Drug Dosing mL/min Estimated GFR (MDRD) (>60) mL/min BUN/Creatinine Ratio (14-18) Glucose 268 H (74-106) mg/dL POC Glucose 223 H 213 H (70-105) mg/dL Calcium (8.5-10.1) mg/dL Magnesium (1.8-2.4) mg/dl 05/16/19 05/17/19 05/17/19 Range/Units 20:39 05:02 05:02 WBC 7.74 (3.98-10.04) K/mm3 RBC 4.13 (3.98-5.22) M/mm3 Hgb 10.1 L (11.2-15.7) gm/dl Hct 33.0 L (34.1-44.9) % MCV 79.9 (79.4-94.8) fl MCH 24.5 L (25.6-32.2) pg MCHC 30.6 L (32.2-35.5) g/dl RDW Std Deviation 44.0 (36.4-46.3) fL Plt Count 467 H (182-369) K/mm3 MPV 9.4 (9.4-12.3) fl Neut % (Auto) 39.4 (34.0-71.1) % Lymph % (Auto) 43.2 (19.3-51.7) % [place] % (Auto) 9.6 (4.7-12.5) % Eos % (Auto) 6.8 H (0.7-5.8) Baso % (Auto) 0.6 (0.1-1.2) % Neut # (Auto) 3.05 (1.56-6.13) K/mm3 Lymph # (Auto) 3.34 (1.18-3.74) K/mm3 [place] # (Auto) 0.74 H (0.24-0.36) K/mm3 Eos # (Auto) 0.53 H (0.04-0.36) K/mm3 Baso # (Auto) 0.05 (0.01-0.08) K/mm3 Sodium 134 L (136-145) mEq/L Potassium 4.6 (3.5-5.1) mEq/L Chloride 104 (98-107) mEq/L Carbon Dioxide 19 L (21-32) mEq/L Anion Gap 15.6 H (5-15) BUN 39 H (7-18) mg/dL Creatinine 1.9 H (0.55-1.02) mg/dL Est Cr Clr Drug Dosing 35.73 mL/min Estimated GFR (MDRD) 28 (>60) mL/min BUN/Creatinine Ratio 20.5 H (14-18) Glucose 223 H (74-106) mg/dL POC Glucose 244 H (70-105) mg/dL Calcium 7.8 L (8.5-10.1) mg/dL Magnesium 1.9 (1.8-2.4) mg/dl 05/17/19 Range/Units 07:00 WBC (3.98-10.04) K/mm3 RBC (3.98-5.22) M/mm3 Hgb (11.2-15.7) gm/dl Hct (34.1-44.9) % MCV (79.4-94.8) fl MCH (25.6-32.2) pg MCHC (32.2-35.5) g/dl RDW Std Deviation (36.4-46.3) fL Plt Count (182-369) K/mm3 MPV (9.4-12.3) fl Neut % (Auto) (34.0-71.1) % Lymph % (Auto) (19.3-51.7) % [place] % (Auto) (4.7-12.5) % Eos % (Auto) (0.7-5.8) Baso % (Auto) (0.1-1.2) % Neut # (Auto) (1.56-6.13) K/mm3 Lymph # (Auto) (1.18-3.74) K/mm3 [place] # (Auto) (0.24-0.36) K/mm3 Eos # (Auto) (0.04-0.36) K/mm3 Baso # (Auto) (0.01-0.08) K/mm3 Sodium (136-145) mEq/L Potassium (3.5-5.1) mEq/L Chloride (98-107) mEq/L Carbon Dioxide (21-32) mEq/L Anion Gap (5-15) BUN (7-18) mg/dL Creatinine (0.55-1.02) mg/dL Est Cr Clr Drug Dosing mL/min Estimated GFR (MDRD) (>60) mL/min BUN/Creatinine Ratio (14-18) Glucose (74-106) mg/dL POC Glucose 168 H (70-105) mg/dL Calcium (8.5-10.1) mg/dL Magnesium (1.8-2.4) mg/dl Med Orders - Current: Current Medications Acetaminophen (Tylenol) 650 mg PO Q4H PRN PRN Reason: Pain Last Admin: 05/15/19 15:13 Dose: 650 mg Hydrocodone Bitart/Acetaminophen ([place] 325-5 Mg) 1 tab PO Q4H PRN PRN Reason: Pain Last Admin: 05/16/19 21:35 Dose: 1 tab Albuterol (Proventil Hfa) 1 - 2 gm INH Q4HR PRN PRN Reason: Shortness of Breath Last Admin: 05/16/19 09:01 Dose: 2 puff Albuterol/Ipratropium (Duoneb 3.0-0.5 Mg/3 Ml) 3 ml NEB Q4HRRT PRN PRN Reason: Shortness of Breath Amlodipine Besylate (Norvasc) 5 mg PO DAILY [facility] Last Admin: 05/16/19 08:41 Dose: 5 mg Dextrose/Water (Dextrose 50% In Water) 50 ml IVPUSH ASDIRECTED PRN PRN Reason: Hypoglycemia Duloxetine HCl (Cymbalta) 20 mg PO DAILY [facility] Last Admin: 05/16/19 08:38 Dose: 20 mg Gabapentin (Neurontin) 900 mg PO TID [facility] Last Admin: 05/16/19 21:30 Dose: 900 mg Haloperidol Lactate (Haldol) 2.5 mg IM Q4H PRN PRN Reason: hallucination Hydralazine HCl (Apresoline) 20 mg IVPUSH Q4H PRN PRN Reason: Hypertension Hydrochlorothiazide (Hydrochlorothiazide) 12.5 mg PO BIDDIURETIC [facility] Last Admin: 05/17/19 07:02 Dose: 12.5 mg Insulin Glargine (Lantus) 85 unit SUBCUT BIDAC [facility] Insulin Human Lispro (Humalog) 0 unit SUBCUT QIDACANDBED [facility]; Protocol Last Admin: 05/16/19 21:30 Dose: 6 units Ketorolac Tromethamine (Toradol) 15 mg IVPUSH Q6H PRN PRN Reason: Pain Lisinopril (Prinivil) 40 mg PO DAILY [facility] Last Admin: 05/16/19 08:41 Dose: 40 mg Miscellaneous Information (Remove Patch) 1 ea TRDERM Q24H [facility] Last Admin: 05/16/19 12:40 Dose: 1 ea Mometasone Furoate/Formoterol Fumar (Dulera 100-5 Mcg) 2 puff IH DAILY [facility] Last Admin: 05/16/19 08:12 Dose: 2 puff Nicotine (Habitrol) 14 mg TRDERM Q24H [facility] Last Admin: 05/16/19 12:41 Dose: 14 mg Ondansetron HCl (Zofran Odt) 4 mg PO Q6H PRN PRN Reason: nausea, able to take PO Ondansetron HCl (Zofran) 4 mg IV Q6H PRN PRN Reason: Nausea/Vomiting Discontinued Medications Albuterol/Ipratropium (Duoneb 3.0-0.5 Mg/3 Ml) 3 ml NEB ONETIME ONE Stop: 05/14/19 22:30 Last Admin: 05/14/19 22:46 Dose: 3 ml Hydrochlorothiazide (Hydrochlorothiazide) 25 mg PO ONETIME ONE Stop: 05/16/19 09:01 Last Admin: 05/16/19 08:59 Dose: 25 mg Insulin Glargine (Lantus) 60 unit SUBCUT BIDAC [facility] Last Admin: 05/16/19 07:53 Dose: 60 units Insulin Glargine (Lantus) 80 unit SUBCUT BIDAC [facility] Last Admin: 05/17/19 07:01 Dose: 80 units Lorazepam (Ativan) 1 mg IVPUSH ONETIME ONE Stop: 05/14/19 00:17 Last Admin: 05/15/19 01:37 Dose: Not Given Lorazepam (Ativan) 1 mg IM ONETIME ONE Stop: 05/14/19 00:21 Last Admin: 05/14/19 00:25 Dose: 1 mg Magnesium Hydroxide (Milk Of Magnesia) 30 ml PO ONETIME ONE Stop: 05/16/19 18:39 Last Admin: 05/16/19 18:47 Dose: 30 ml - Exam General: Alert, Oriented, Cooperative, No Acute Distress, Other (Obese) HEENT: Pupils Equal, Pupils Reactive, Mucous Membr. Moist/[place] Neck: Supple, Trachea Midline Lungs: Clear to Auscultation, Normal Respiratory Effort Cardiovascular: Regular Rate, Regular Rhythm GI/Abdominal Exam: Normal Bowel Sounds, Soft, Non-Tender, No Organomegaly, No Distention, No Abnormal Bruit, No Mass, Other (Obese) (Female) Exam: Deferred Back Exam: Normal Inspection, Decreased Range of Motion Extremities: Normal Inspection, Normal Range of Motion, Non-Tender, No Pedal Edema, Normal Capillary Refill, Other (Right BKA; Left LE is sensitive to touch) Sepsis Event Note - Evaluation Sepsis Screening Result: No Definite Risk - Focused Exam Vital Signs: Vital Signs Temp Pulse Resp BP Pulse Ox 05/17/19 02:57 36.7 C 85 18 134/71 97 05/16/19 20:42 36.8 C 81 13 120/53 L 95 Date Exam was Performed: 05/17/19 Time Exam was Performed: 18:10 - Problem List Review Problem List Initiated/Reviewed/Updated: Yes - My Orders Last 24 Hours: My Active Orders 05/16/19 08:47 Acetaminophen/HYDROcodone [[place] 325-5 MG] 1 tab PO Q4H PRN 05/16/19 08:53 Ketorolac [Toradol] 15 mg IVPUSH Q6H PRN 05/16/19 09:00 Mometasone/Formoterol [Dulera 100-5 MCG] 2 puff IH DAILY 05/16/19 12:30 Remove Patch 1 ea TRDERM Q24H 05/16/19 18:00 hydroCHLOROthiazide 12.5 mg PO BIDDIURETIC 05/16/19 Dinner Consistent Carbohydrate Diet [DIET] 05/17/19 09:00 glipiZIDE [Glucotrol] 2.5 mg PO BID 05/17/19 16:00 Insulin Glarg,Human.Rec.Analog [LantUS] 85 unit SUBCUT BIDAC 05/18/19 05:00 BMP [BASIC METABOLIC PANEL,BMP] [CHEM] DAILY CBC WITH AUTO DIFF [HEME] DAILY MAGNESIUM [CHEM] DAILY 05/19/19 05:00 BMP [BASIC METABOLIC PANEL,BMP] [CHEM] DAILY CBC WITH AUTO DIFF [HEME] DAILY MAGNESIUM [CHEM] DAILY 05/20/19 05:00 BMP [BASIC METABOLIC PANEL,BMP] [CHEM] DAILY CBC WITH AUTO DIFF [HEME] DAILY MAGNESIUM [CHEM] DAILY 05/21/19 05:00 CBC WITH AUTO DIFF [HEME] DAILY - Plan Plan:: Psychiatric disorder with psychosis Drug abuse Psychosis on day of admission Transfer to inpatient psychiatry not possible due to poor bed availability PLAN - Continue home meds - Consult case management rn and social work faculty member Chronic kidney disease, stage IV, Stable Chronic anemia GFR on admission 28 Hb 9.8, normocytic normochromic PLAN - Monitor urine output - Renally dosed medications - Avoid nephrotoxic agents Poorly controlled diabetes mellitus Glucose on admission 169 Home management with glargine 80u BID BS remains uncontrolled-still in the 200s PLAN - Accu-checks AC/HS with high dose level - New HbA1c level is 11.60 - Glargine 80 units SubQ BID--> change to 85 units BID - Glucotrol 5 mg po BID - Hypoglycemia protocol - Change ISS to High intensity level Hypertension, Improving BP on admission 138/102 On home amlodipine and lisinopril PLAN - Continue home medications - PRN hydralazine - Will add HCTZ 12.5 mg po BID - Monitor VS Back and Leg Pain Chronic to her Obesity to contributory to her pain Advised [facility] PLAN Resume home medications She is on high dose Gabapentin 900 mg po TID Trial of Ropinorole 1 mg po BID Oral PRN [place] if no relief with home medications Obesity Class II BMI of 37 PLAN: Advised [facility] Dietary consult for weight management Saturday PROPHYLAXIS DVT- Compression stockings GI- not indicated CODE STATUS: FULL CODE DISPOSITION: Her blood pressure is improving but her glucose remains uncontrolled. She is not medically ready for inpatient psychiatry treatment. We will continue to treat her medically.
[2019-05-17] MEDS ORDERED: glipiZIDE 5 MG Tab PO SCH (07:30)
[2019-05-17] MEDS: Formoterol/Mometasone 100-5 MCG 8.8 GM Inhaler IH SCH (08:11)
[2019-05-17] MEDS: Albuterol 6.7 GM Inhaler INH PRN (08:11)
[2019-05-17] MEDS: Insulin Lispro 100 Units/ML 3 ML Vial SUBCUT SCH ×5 (08:18→21:12)
[2019-05-17] MEDS: glipiZIDE 5 MG Tab PO SCH ×2 (08:19→16:35)
[2019-05-17] MEDS: DULoxetine 20 MG Cap PO SCH (08:19)
[2019-05-17] MEDS: Gabapentin 300 MG Cap PO SCH ×3 (08:21→20:49)
[2019-05-17] MEDS: Lisinopril 20 MG Tab PO SCH (08:21)
[2019-05-17] MEDS: amLODIPine 5 MG Tab PO SCH (08:22)
[2019-05-17] MEDS: Acetaminophen/HYDROcodone 325-5 MG Tab PO PRN ×3 (08:22→20:54)
[2019-05-17] MEDS ORDERED: Bisacodyl 10 MG Supp RECTAL ONE (08:30)
[2019-05-17] MEDS: rOPINIRole 1 MG Tab PO SCH ×2 (09:06→20:51)
[2019-05-17] MEDS ORDERED: DULoxetine 30 MG Cap PO ONE (09:25)
[2019-05-17] MEDS: Nicotine 14 MG/24 Hr Patch TRDERM SCH (11:42)
[2019-05-17] MEDS ORDERED: Temazepam 15 MG Cap PO PRN (17:39)
[2019-05-18] MEDS: Acetaminophen/HYDROcodone 325-5 MG Tab PO PRN ×2 (06:10→13:50)
[2019-05-18] MEDS: Hydrochlorothiazide 12.5 MG Cap PO SCH ×2 (06:10→13:51)
[2019-05-18] MEDS: glipiZIDE 5 MG Tab PO SCH ×2 (06:11→17:10)
[2019-05-18] MEDS: Insulin Lispro 100 Units/ML 3 ML Vial SUBCUT SCH ×4 (06:11→22:55)
[2019-05-18] MEDS: Insulin Glarg,Human.Rec.Analog 100 Unit/ML SUBCUT SCH ×2 (07:00→17:10)
[2019-05-18] MEDS: Formoterol/Mometasone 100-5 MCG 8.8 GM Inhaler IH SCH (08:32)
[2019-05-18] MEDS: Albuterol 6.7 GM Inhaler INH PRN (08:33)
--- NOTE | 2019-05-18 09:05 | PCM.PN ---
- General Info Date of Service: 05/18/19 Admission Dx/Problem (Free Text): Admission Diagnosis/Problem Admission Diagnosis/Problem Diabetes mellitus Subjective Update: Follow Up Functional Status: Reports: Pain Controlled, Tolerating Diet, Ambulating, Urinating. Denies: New Symptoms - Review of Systems General: Reports: No Symptoms. Denies: Fever, Weakness, Fatigue, Malaise, Chills HEENT: Reports: No Symptoms. Denies: Headaches, Sore Throat Pulmonary: Reports: No Symptoms. Denies: Shortness of Breath, Cough, Sputum, Wheezing Cardiovascular: Reports: No Symptoms. Denies: Chest Pain, Palpitations, Edema Gastrointestinal: Reports: No Symptoms. Denies: Abdominal Pain, Constipation, Diarrhea, Nausea, Vomiting Genitourinary: Reports: No Symptoms. Denies: Pain Musculoskeletal: Reports: Back Pain, Leg Pain Skin: Reports: No Symptoms. Denies: Cyanosis Neurological: Reports: Pre-Existing Deficit, Difficulty Walking, Gait Disturbance. Denies: Confusion Psychiatric: Reports: No Symptoms - Patient Data Vitals - Most Recent: Last Vital Signs Temp 98.1 F 05/18/19 03:32 Pulse 83 05/18/19 03:32 Resp 12 05/18/19 03:32 BP 138/67 05/18/19 03:32 Pulse Ox 98 05/18/19 08:34 Weight - Most Recent: 241 lb 12.8 oz I&O - Last 24 Hours: Intake & Output 05/17/19 05/18/19 05/18/19 22:59 06:59 14:59 Intake Total 3180 2080 Output Total 2550 3200 Balance 630 -1120 Lab Results Last 24 Hours: Laboratory Results - last 24 hr 05/17/19 05/17/19 05/17/19 Range/Units 11:32 16:14 20:35 WBC (3.98-10.04) K/mm3 RBC (3.98-5.22) M/mm3 Hgb (11.2-15.7) gm/dl Hct (34.1-44.9) % MCV (79.4-94.8) fl MCH (25.6-32.2) pg MCHC (32.2-35.5) g/dl RDW Std Deviation (36.4-46.3) fL Plt Count (182-369) K/mm3 MPV (9.4-12.3) fl Neut % (Auto) (34.0-71.1) % Lymph % (Auto) (19.3-51.7) % [place] % (Auto) (4.7-12.5) % Eos % (Auto) (0.7-5.8) Baso % (Auto) (0.1-1.2) % Neut # (Auto) (1.56-6.13) K/mm3 Lymph # (Auto) (1.18-3.74) K/mm3 [place] # (Auto) (0.24-0.36) K/mm3 Eos # (Auto) (0.04-0.36) K/mm3 Baso # (Auto) (0.01-0.08) K/mm3 Sodium (136-145) mEq/L Potassium (3.5-5.1) mEq/L Chloride (98-107) mEq/L Carbon Dioxide (21-32) mEq/L Anion Gap (5-15) BUN (7-18) mg/dL Creatinine (0.55-1.02) mg/dL Est Cr Clr Drug Dosing mL/min Estimated GFR (MDRD) (>60) mL/min BUN/Creatinine Ratio (14-18) Glucose (74-106) mg/dL POC Glucose 163 H 118 H 233 H (70-105) mg/dL Calcium (8.5-10.1) mg/dL Magnesium (1.8-2.4) mg/dl 05/18/19 05/18/19 05/18/19 Range/Units 05:24 05:24 05:58 WBC 9.12 (3.98-10.04) K/mm3 RBC 3.99 (3.98-5.22) M/mm3 Hgb 9.8 L (11.2-15.7) gm/dl Hct 32.2 L (34.1-44.9) % MCV 80.7 (79.4-94.8) fl MCH 24.6 L (25.6-32.2) pg MCHC 30.4 L (32.2-35.5) g/dl RDW Std Deviation 44.0 (36.4-46.3) fL Plt Count 542 H D (182-369) K/mm3 MPV 9.0 L (9.4-12.3) fl Neut % (Auto) 48.0 (34.0-71.1) % Lymph % (Auto) 37.8 (19.3-51.7) % [place] % (Auto) 7.5 (4.7-12.5) % Eos % (Auto) 6.1 H (0.7-5.8) Baso % (Auto) 0.4 (0.1-1.2) % Neut # (Auto) 4.37 (1.56-6.13) K/mm3 Lymph # (Auto) 3.45 (1.18-3.74) K/mm3 [place] # (Auto) 0.68 H (0.24-0.36) K/mm3 Eos # (Auto) 0.56 H (0.04-0.36) K/mm3 Baso # (Auto) 0.04 (0.01-0.08) K/mm3 Sodium 135 L (136-145) mEq/L Potassium 4.4 (3.5-5.1) mEq/L Chloride 104 (98-107) mEq/L Carbon Dioxide 19 L (21-32) mEq/L Anion Gap 16.4 H (5-15) BUN 47 H (7-18) mg/dL Creatinine 2.0 H (0.55-1.02) mg/dL Est Cr Clr Drug Dosing 33.95 mL/min Estimated GFR (MDRD) 26 (>60) mL/min BUN/Creatinine Ratio 23.5 H (14-18) Glucose 119 H (74-106) mg/dL POC Glucose 99 (70-105) mg/dL Calcium 7.6 L (8.5-10.1) mg/dL Magnesium 1.9 (1.8-2.4) mg/dl Med Orders - Current: Current Medications Acetaminophen (Tylenol) 650 mg PO Q4H PRN PRN Reason: Pain Last Admin: 05/15/19 15:13 Dose: 650 mg Hydrocodone Bitart/Acetaminophen ([place] 325-5 Mg) 1 tab PO Q4H PRN PRN Reason: Pain Last Admin: 05/18/19 06:10 Dose: 1 tab Albuterol (Proventil Hfa) 1 - 2 gm INH Q4HR PRN PRN Reason: Shortness of Breath Last Admin: 05/18/19 08:33 Dose: 2 puff Albuterol/Ipratropium (Duoneb 3.0-0.5 Mg/3 Ml) 3 ml NEB Q4HRRT PRN PRN Reason: Shortness of Breath Amlodipine Besylate (Norvasc) 5 mg PO DAILY [facility] Last Admin: 05/17/19 08:22 Dose: 5 mg Dextrose/Water (Dextrose 50% In Water) 50 ml IVPUSH ASDIRECTED PRN PRN Reason: Hypoglycemia Duloxetine HCl (Cymbalta) 80 mg PO DAILY [facility] Gabapentin (Neurontin) 900 mg PO TID [facility] Last Admin: 05/17/19 20:49 Dose: 900 mg Glipizide (Glucotrol) 5 mg PO BIDMEALS [facility] Last Admin: 05/18/19 06:11 Dose: 5 mg Haloperidol Lactate (Haldol) 2.5 mg IM Q4H PRN PRN Reason: hallucination Hydralazine HCl (Apresoline) 20 mg IVPUSH Q4H PRN PRN Reason: Hypertension Hydrochlorothiazide (Hydrochlorothiazide) 12.5 mg PO BIDDIURETIC [facility] Last Admin: 05/18/19 06:10 Dose: 12.5 mg Insulin Glargine (Lantus) 85 unit SUBCUT BIDAC [facility] Last Admin: 05/18/19 07:00 Dose: 85 units Insulin Human Lispro (Humalog) 0 unit SUBCUT QIDACANDBED [facility]; Protocol Last Admin: 05/18/19 06:11 Dose: Not Given Ketorolac Tromethamine (Toradol) 15 mg IVPUSH Q6H PRN PRN Reason: Pain Lisinopril (Prinivil) 40 mg PO DAILY [facility] Last Admin: 05/17/19 08:21 Dose: 40 mg Miscellaneous Information (Remove Patch) 1 ea TRDERM Q24H [facility] Last Admin: 05/17/19 11:45 Dose: 1 ea Mometasone Furoate/Formoterol Fumar (Dulera 100-5 Mcg) 2 puff IH DAILY [facility] Last Admin: 05/18/19 08:32 Dose: 2 puff Nicotine (Habitrol) 14 mg TRDERM Q24H [facility] Last Admin: 05/17/19 11:42 Dose: 14 mg Ondansetron HCl (Zofran Odt) 4 mg PO Q6H PRN PRN Reason: nausea, able to take PO Ondansetron HCl (Zofran) 4 mg IV Q6H PRN PRN Reason: Nausea/Vomiting Ropinirole HCl (Requip) 1 mg PO BID [facility] Last Admin: 05/17/19 20:51 Dose: 1 mg Temazepam (Restoril) 15 mg PO BEDTIME PRN PRN Reason: Insomnia Discontinued Medications Albuterol/Ipratropium (Duoneb 3.0-0.5 Mg/3 Ml) 3 ml NEB ONETIME ONE Stop: 05/14/19 22:30 Last Admin: 05/14/19 22:46 Dose: 3 ml Bisacodyl (Dulcolax) 10 mg RECTAL ONETIME ONE Stop: 05/17/19 08:31 Last Admin: 05/17/19 09:06 Dose: 10 mg Duloxetine HCl (Cymbalta) 20 mg PO DAILY [facility] Last Admin: 05/17/19 08:19 Dose: 20 mg Duloxetine HCl (Cymbalta) 60 mg PO ONETIME ONE Stop: 05/17/19 09:26 Last Admin: 05/17/19 09:48 Dose: 60 mg Glipizide (Glucotrol) 2.5 mg PO BIDMEALS [facility] Last Admin: 05/17/19 08:29 Dose: Not Given Hydrochlorothiazide (Hydrochlorothiazide) 25 mg PO ONETIME ONE Stop: 05/16/19 09:01 Last Admin: 05/16/19 08:59 Dose: 25 mg Insulin Glargine (Lantus) 60 unit SUBCUT BIDAC [facility] Last Admin: 05/16/19 07:53 Dose: 60 units Insulin Glargine (Lantus) 80 unit SUBCUT BIDAC [facility] Last Admin: 05/17/19 07:01 Dose: 80 units Lorazepam (Ativan) 1 mg IVPUSH ONETIME ONE Stop: 05/14/19 00:17 Last Admin: 05/15/19 01:37 Dose: Not Given Lorazepam (Ativan) 1 mg IM ONETIME ONE Stop: 05/14/19 00:21 Last Admin: 05/14/19 00:25 Dose: 1 mg Magnesium Hydroxide (Milk Of Magnesia) 30 ml PO ONETIME ONE Stop: 05/16/19 18:39 Last Admin: 05/16/19 18:47 Dose: 30 ml - Exam Quality Assessment: DVT Prophylaxis General: Alert, Oriented, Cooperative, No Acute Distress HEENT: Pupils Equal, Pupils Reactive Neck: Supple, Trachea Midline Lungs: Clear to Auscultation, Normal Respiratory Effort Cardiovascular: Regular Rate, Regular Rhythm GI/Abdominal Exam: Normal Bowel Sounds, Soft, Non-Tender, No Distention, No Abnormal Bruit (Female) Exam: Deferred Extremities: No Pedal Edema, Normal Capillary Refill, Other (Below the knee amputaton on right leg.) Skin: Warm, Dry, Intact Neurological: No New Focal Deficit Psy/Mental Status: Alert Sepsis Event Note - Evaluation Sepsis Screening Result: No Definite Risk - Focused Exam Vital Signs: Vital Signs Temp Pulse Resp BP Pulse Ox Pulse Ox 05/18/19 08:34 98 05/18/19 03:32 98.1 F 83 12 138/67 98 Date Exam was Performed: 05/18/19 Time Exam was Performed: 14:09 - Problem List & Annotations (1) Chronic anemia SNOMED Code(s): 166984682 Code(s): D64.9 - ANEMIA, UNSPECIFIED Status: Chronic Priority: Medium Current Visit: Yes (2) Chronic hyponatremia SNOMED Code(s): 42814138 Code(s): E87.1 - HYPO-OSMOLALITY AND HYPONATREMIA Status: Chronic Priority: Medium Current Visit: Yes (3) Chronic kidney disease SNOMED Code(s): 396363680 Code(s): N18.9 - CHRONIC KIDNEY DISEASE, UNSPECIFIED Status: Chronic Priority: Medium Current Visit: Yes Qualifiers: Chronic kidney disease stage: unspecified stage Qualified Code(s): N18.9 - Chronic kidney disease, unspecified (4) Drug abuse SNOMED Code(s): 43176253 Code(s): F19.10 - OTHER PSYCHOACTIVE SUBSTANCE ABUSE, UNCOMPLICATED Status : Chronic Priority: Medium Current Visit: Yes (5) Hypertension SNOMED Code(s): 06620458 Code(s): I10 - ESSENTIAL (PRIMARY) HYPERTENSION Status: Chronic Priority : Medium Current Visit: Yes Qualifiers: Hypertension type: unspecified Qualified Code(s): I10 - Essential (primary ) hypertension (6) Poorly controlled diabetes mellitus SNOMED Code(s): 922119137, 720783603 Code(s): E11.65 - TYPE 2 DIABETES MELLITUS WITH HYPERGLYCEMIA Status: Acute Priority: High Current Visit: Yes (7) Psychiatric disorder SNOMED Code(s): 46573552 Code(s): F99 - MENTAL DISORDER, NOT OTHERWISE SPECIFIED Status: Acute Priority: High Current Visit: Yes (8) Renal insufficiency SNOMED Code(s): 643162057, 064300496 Code(s): N28.9 - DISORDER OF KIDNEY AND URETER, UNSPECIFIED Status: Acute Priority: High Current Visit: Yes - Problem List Review Problem List Initiated/Reviewed/Updated: Yes - Plan Plan:: Psychiatric disorder with psychosis Drug abuse Psychosis on day of admission Transfer to inpatient psychiatry not possible due to poor bed availability PLAN - Continue home meds - Consult caser and social worker palliative care Chronic kidney disease, stage IV, Stable Chronic anemia GFR on admission 28 Hb 9.8, normocytic normochromic PLAN - Monitor urine output - Renally dosed medications - Avoid nephrotoxic agents Poorly controlled diabetes mellitus Glucose on admission 169 Home management with glargine 80u BID BS remains uncontrolled-still in the 200s PLAN - Accu-checks AC/HS with high dose level - New HbA1c level is 11.60 - Glargine 80 units SubQ BID--> change to 85 units BID - Glucotrol 5 mg po BID - Hypoglycemia protocol - Change ISS to High intensity level Hypertension, Improving BP on admission 138/102 On home amlodipine and lisinopril PLAN - Continue home medications - PRN hydralazine - Will add HCTZ 12.5 mg po BID - Monitor VS Back and Leg Pain Chronic to her Obesity to contributory to her pain Advised [facility] PLAN Resume home medications She is on high dose Gabapentin 900 mg po TID Trial of Ropinorole 1 mg po BID Oral PRN Whitharral if no relief with home medications Obesity Class II BMI of 37 PLAN: Advised [facility] Dietary consult for weight management Saturday PROPHYLAXIS DVT- Compression stockings GI- not indicated CODE STATUS: FULL CODE DISPOSITION: Her blood pressure is improving but her glucose remains uncontrolled. She is not medically ready for inpatient psychiatry treatment. We will continue to treat her medically. Pending placement
[2019-05-18] MEDS: Gabapentin 300 MG Cap PO SCH ×4 (09:21→21:04)
[2019-05-18] MEDS: rOPINIRole 1 MG Tab PO SCH ×2 (09:21→21:05)
[2019-05-18] MEDS: DULoxetine 20 MG Cap PO SCH (09:22)
[2019-05-18] MEDS: Lisinopril 20 MG Tab PO SCH (09:22)
[2019-05-18] MEDS: amLODIPine 5 MG Tab PO SCH (09:22)
[2019-05-18] MEDS: Nicotine 14 MG/24 Hr Patch TRDERM SCH (14:00)
[2019-05-18] MEDS: Nicotine 21 MG/24 Hr Patch TRDERM SCH (14:05)
[2019-05-18] MEDS ORDERED: Simethicone 80 MG Tab.Chew PO PRN (17:06)
[2019-05-19] MEDS ORDERED: glipiZIDE 5 MG Tab PO SCH
[2019-05-19] MEDS ORDERED: Insulin Glarg,Human.Rec.Analog 100 Unit/ML SUBCUT SCH
[2019-05-19] MEDS ORDERED: Magnesium Hydroxide 400 MG/5 ML Susp 30 ML Cup PO ONE (04:11)
[2019-05-19] MEDS: glipiZIDE 5 MG Tab PO SCH ×2 (06:28→17:31)
[2019-05-19] MEDS: Hydrochlorothiazide 12.5 MG Cap PO SCH ×2 (06:28→13:31)
[2019-05-19] MEDS: Insulin Glarg,Human.Rec.Analog 100 Unit/ML SUBCUT SCH ×2 (06:29→17:31)
[2019-05-19] MEDS: Insulin Lispro 100 Units/ML 3 ML Vial SUBCUT SCH ×2 (06:42→13:34)
[2019-05-19] MEDS: Albuterol 6.7 GM Inhaler INH PRN (08:05)
[2019-05-19] MEDS: Formoterol/Mometasone 100-5 MCG 8.8 GM Inhaler IH SCH (08:05)
[2019-05-19] MEDS: DULoxetine 20 MG Cap PO SCH (08:30)
[2019-05-19] MEDS: amLODIPine 5 MG Tab PO SCH (08:31)
[2019-05-19] MEDS: Gabapentin 300 MG Cap PO SCH ×2 (08:31→16:24)
[2019-05-19] MEDS: Lisinopril 20 MG Tab PO SCH (08:32)
[2019-05-19] MEDS: rOPINIRole 1 MG Tab PO SCH (08:33)
[2019-05-19] MEDS: Acetaminophen/HYDROcodone 325-5 MG Tab PO PRN ×2 (10:50→16:23)
[2019-05-19] MEDS: Nicotine 21 MG/24 Hr Patch TRDERM SCH (13:32)
--- NOTE | 2019-05-19 13:54 | PCM.DCSUM1 ---
Discharge Summary - Hospital Course HPI Initial Comments: Information obtained by chart review Patient came in for elevated glucose which resolved in ED. She developed psychosis episode yesterday and transfer was attempted to [place] but was eventually declined by receiving team due to poor bed availability Please review ED MD's note as follows "Social work did get involved and does not believe the patient is safe for discharge. She has underlying psychiatric history she has been in inpatient psychiatric care but she cannot recall for what. She is got a history of COPD diabetes depression she uses meth on an almost daily basis the patient somewhat poor historian with significant paranoid thinking and disorganized thought process. At this point we will have psychiatric backup I will try and get the patient admitted in [place] where they have psychiatric services are social work lecturer is working with their social work lecturer 05/14/19 22:55 Getting accepted to [place] is not a possibility at this time." Diagnosis: Stroke: No - Discharge Data Discharge Date: 05/19/19 (Admit date: 05/14/19) Discharge Disposition: Home, Self-Care 01 Condition: Good - Referral to Home Health Primary Care Physician: PCP Not In Area - Discharge Diagnosis/Problem(s) (1) Chronic anemia SNOMED Code(s): 981382214 ICD Code: D64.9 - ANEMIA, UNSPECIFIED Status: Chronic Priority: Medium Current Visit: Yes (2) Chronic hyponatremia SNOMED Code(s): 60254916 ICD Code: E87.1 - HYPO-OSMOLALITY AND HYPONATREMIA Status: Chronic Priority: Medium Current Visit: Yes (3) Chronic kidney disease SNOMED Code(s): 755189893 ICD Code: N18.9 - CHRONIC KIDNEY DISEASE, UNSPECIFIED Status: Chronic Priority: Medium Current Visit: Yes Qualifiers: Chronic kidney disease stage: unspecified stage Qualified Code(s): N18.9 - Chronic kidney disease, unspecified (4) Drug abuse SNOMED Code(s): 69222846 ICD Code: F19.10 - OTHER PSYCHOACTIVE SUBSTANCE ABUSE, UNCOMPLICATED Status : Chronic Priority: Medium Current Visit: Yes (5) Hypertension SNOMED Code(s): 25978703 ICD Code: I10 - ESSENTIAL (PRIMARY) HYPERTENSION Status: Chronic Priority : Medium Current Visit: Yes Qualifiers: Hypertension type: unspecified Qualified Code(s): I10 - Essential (primary ) hypertension (6) Poorly controlled diabetes mellitus SNOMED Code(s): 556166900, 600765933 ICD Code: E11.65 - TYPE 2 DIABETES MELLITUS WITH HYPERGLYCEMIA Status: Chronic Priority: High Current Visit: Yes (7) Psychiatric disorder SNOMED Code(s): 00597490 ICD Code: F99 - MENTAL DISORDER, NOT OTHERWISE SPECIFIED Status: Chronic Priority: High Current Visit: Yes (8) Renal insufficiency SNOMED Code(s): 643720973, 826801013 ICD Code: N28.9 - DISORDER OF KIDNEY AND URETER, UNSPECIFIED Status: Chronic Priority: High Current Visit: Yes - Patient Summary/Data Consults: Consultations 05/15/19 07:40 Consult to Case Management/Laminating Machine Feeder [CONS] Routine 05/15/19 09:22 Consult to Physician [CONS] Routine 05/15/19 14:18 Consult to Occupational Therapy [OT Evaluation and Treatment] [CONS] Routine PT Evaluation and Treatment [CONS] Routine 05/18/19 14:11 Consult to Dietary [Consult to Lining Baster] [CONS] Routine Labs Pending at D/C: None Recommended Follow-up Testing/Procedures: Follow-up with primary care provider within 5-7 days of discharge, sooner if needed. Recommend establishing with a metallurgical technician. Hospital Course: Alicia was admitted to the floor for blood pressure and glucose control. She was going from [place] to [place] and apparently started to act bizarre so the bus stopped and called an ambulance. In the ED she was positive for methamphetamine. The patient does admit that she is a regular methamphetamine user and has been using her insulin needles to shoot up. 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 Reports she is homeless and has been living out in front of one of the churches in [place]. Once on the floor dietary was consulted to discuss her meals. Unfortunately as the patient stated because she is homeless it is difficult to plan meals or to watch her intake. Her home Lantus was increased to 85 units and she was started on glipizide 5 mg p.o. twice daily with good response. Her blood sugars did level off while here with good control. She did have slightly elevated blood pressures and was started on HCTZ 12.5 mg twice daily. She was complaining of leg pain and was started on 1 mg Requip p.o. twice daily. She does have a history of 300 mg p.o. 3 times daily of gabapentin but reports she is out of it and would like a refill. This was sent to her pharmacy. All other home medications were continued with the exception of her change in Lantus dosing. She was seen by our physical therapy and occupational therapy department who deemed her at prior level of function. Dr. Son, tele- psychiatrist, did see her and recommended she continue her Cymbalta 80 mg daily and Neurontin as indicated. He recommends sobriety and a wrap to visit the patient, along with pastoral guidance. Commend the patient be transferred to [facility] here on discharge. Unfortunately [facility] was contacted and due to accessibility issues with the patient in her wheelchair, they were refusing service. Is recommended she follow-up with psychiatry outpatient. Social work was heavily involved in the case and try to find multiple places for placement, although ultimately many were deemed not justified based on her workup here. Social work was attempting to find her transportation at discharge. She was instructed to take her blood sugar 3 times a day and at bedtime, recording this in a journal. She was also instructed take her blood pressure daily. She should record this as well and bring it with to all medical appointments. She instructed to follow-up with a primary care provider within 5 to 7 days of discharge. She was discharged today. She was advised to return to the emergency department or contact her primary care provider should symptoms return or worsen. - Patient Instructions Diet: Diabetic Diet Activity: As Tolerated Notify Provider of: Fever, Increased Pain, Nausea and/or Vomiting - Discharge Plan *PRESCRIPTION DRUG MONITORING PROGRAM REVIEWED*: No *COPY OF PRESCRIPTION DRUG MONITORING REPORT IN PATIENT ROS: No Prescriptions/Med Rec: Gabapentin [Neurontin] 900 mg PO TID #63 capsule glipiZIDE [Glucotrol] 5 mg PO BID #40 tablet hydroCHLOROthiazide [Hydrochlorothiazide] 12.5 mg PO BIDDIURETIC #40 cap Insulin Glarg,Human.Rec.Analog [Lantus] 85 unit SUBCUT BIDAC #1700 ml rOPINIRole [Requip] 1 mg PO BID #40 tablet Home Medications: Home Meds Albuterol [Ventolin HFA] 1 - 2 inh INH Q4HR PRN 05/15/19 [History] DULoxetine HCl [Duloxetine HCl] 80 mg PO DAILY 05/15/19 [History] Ergocalciferol (Vitamin D2) [Vitamin D2] 50,000 unit PO MO 05/15/19 [History] Mometasone/Formoterol [Dulera 100-5 MCG] 2 inh INH DAILY 05/15/19 [History] Omeprazole 20 mg PO DAILY 05/15/19 [History] amLODIPine [Norvasc] 5 mg PO DAILY 05/15/19 [History] lisinopriL [Lisinopril] 40 mg PO DAILY 05/15/19 [History] Gabapentin [Neurontin] 900 mg PO TID #63 capsule 05/19/19 [Rx] Insulin Glarg,Human.Rec.Analog [Lantus] 85 unit SUBCUT BIDAC #1700 ml 05/19/19 [ Rx] glipiZIDE [Glucotrol] 5 mg PO BID #40 tablet 05/19/19 [Rx] hydroCHLOROthiazide [Hydrochlorothiazide] 12.5 mg PO BIDDIURETIC #40 cap [Rx] rOPINIRole [Requip] 1 mg PO BID #40 tablet 05/19/19 [Rx] Oxygen Therapy Mode: Room Air Patient Handouts: Finding Treatment for Addiction, Chronic Kidney Disease, Adult, Stimulant Use Disorder-Methamphetamines, Steps to Quit Smoking Referrals: PCP,Not In Area [Primary Care Provider] - - Discharge Summary/Plan Comment DC Time >30 min.: Yes (60 minutes ) - General Info Date of Service: 05/19/19 Admission Dx/Problem (Free Text: Admission Diagnosis/Problem Admission Diagnosis/Problem Diabetes mellitus Functional Status: Reports: Pain Controlled, Tolerating Diet, Ambulating, Urinating. Denies: New Symptoms - Review of Systems General: Reports: No Symptoms. Denies: Fever, Weakness, Fatigue, Malaise, Chills HEENT: Reports: No Symptoms. Denies: Headaches, Sore Throat Pulmonary: Reports: No Symptoms. Denies: Shortness of Breath, Cough, Sputum, Wheezing Cardiovascular: Reports: No Symptoms. Denies: Chest Pain, Palpitations Gastrointestinal: Reports: No Symptoms. Denies: Abdominal Pain, Constipation, Diarrhea, Nausea, Vomiting Genitourinary: Reports: No Symptoms. Denies: Pain Musculoskeletal: Reports: Back Pain (chronic ), Leg Pain (chronic ) Skin: Reports: No Symptoms. Denies: Cyanosis Neurological: Reports: Pre-Existing Deficit, Difficulty Walking, Gait Disturbance Psychiatric: Reports: No Symptoms - Patient Data Vitals - Most Recent: Last Vital Signs Temp 97.3 F 05/19/19 10:50 Pulse 91 05/19/19 10:50 Resp 19 05/19/19 10:50 BP 117/91 H 05/19/19 10:50 Pulse Ox 99 05/19/19 10:50 Weight - Most Recent: 242 lb 3.2 oz I&O - Last 24 hours: Intake & Output 05/18/19 05/19/19 05/19/19 22:59 06:59 14:59 Intake Total 4580 2200 660 Output Total 1999 3600 Balance 2580 -1400 660 Lab Results - Last 24 hrs: Laboratory Results - last 24 hr 05/18/19 05/18/19 05/18/19 Range/Units 11:23 16:26 21:10 WBC (3.98-10.04) K/mm3 RBC (3.98-5.22) M/mm3 Hgb (11.2-15.7) gm/dl Hct (34.1-44.9) % MCV (79.4-94.8) fl MCH (25.6-32.2) pg MCHC (32.2-35.5) g/dl RDW Std Deviation (36.4-46.3) fL Plt Count (182-369) K/mm3 MPV (9.4-12.3) fl Neut % (Auto) (34.0-71.1) % Lymph % (Auto) (19.3-51.7) % Clinch % (Auto) (4.7-12.5) % Eos % (Auto) (0.7-5.8) Baso % (Auto) (0.1-1.2) % Neut # (Auto) (1.56-6.13) K/mm3 Lymph # (Auto) (1.18-3.74) K/mm3 Clinch # (Auto) (0.24-0.36) K/mm3 Eos # (Auto) (0.04-0.36) K/mm3 Baso # (Auto) (0.01-0.08) K/mm3 Manual Slide Review Sodium (136-145) mEq/L Potassium (3.5-5.1) mEq/L Chloride (98-107) mEq/L Carbon Dioxide (21-32) mEq/L Anion Gap (5-15) BUN (7-18) mg/dL Creatinine (0.55-1.02) mg/dL Est Cr Clr Drug Dosing mL/min Estimated GFR (MDRD) (>60) mL/min BUN/Creatinine Ratio (14-18) Glucose (74-106) mg/dL POC Glucose 148 H 172 H 105 (70-105) mg/dL Calcium (8.5-10.1) mg/dL Magnesium (1.8-2.4) mg/dl 05/19/19 05/19/19 05/19/19 Range/Units 02:11 05:40 05:40 WBC 9.12 (3.98-10.04) K/mm3 RBC 4.00 (3.98-5.22) M/mm3 Hgb 9.7 L (11.2-15.7) gm/dl Hct 31.8 L (34.1-44.9) % MCV 79.5 (79.4-94.8) fl MCH 24.3 L (25.6-32.2) pg MCHC 30.5 L (32.2-35.5) g/dl RDW Std Deviation 42.0 (36.4-46.3) fL Plt Count 519 H (182-369) K/mm3 MPV 9.1 L (9.4-12.3) fl Neut % (Auto) 56.7 (34.0-71.1) % Lymph % (Auto) 31.5 (19.3-51.7) % Clinch % (Auto) 6.0 (4.7-12.5) % Eos % (Auto) 5.3 (0.7-5.8) Baso % (Auto) 0.4 (0.1-1.2) % Neut # (Auto) 5.17 (1.56-6.13) K/mm3 Lymph # (Auto) 2.87 (1.18-3.74) K/mm3 Clinch # (Auto) 0.55 H (0.24-0.36) K/mm3 Eos # (Auto) 0.48 H (0.04-0.36) K/mm3 Baso # (Auto) 0.04 (0.01-0.08) K/mm3 Manual Slide Review Sodium 132 L (136-145) mEq/L Potassium 4.8 (3.5-5.1) mEq/L Chloride 103 (98-107) mEq/L Carbon Dioxide 18 L (21-32) mEq/L Anion Gap 15.8 H (5-15) BUN 48 H (7-18) mg/dL Creatinine 1.8 H (0.55-1.02) mg/dL Est Cr Clr Drug Dosing 37.72 mL/min Estimated GFR (MDRD) 30 (>60) mL/min BUN/Creatinine Ratio 26.7 H (14-18) Glucose 100 (74-106) mg/dL POC Glucose 83 (70-105) mg/dL Calcium 8.0 L (8.5-10.1) mg/dL Magnesium 2.0 (1.8-2.4) mg/dl 05/19/19 05/19/19 Range/Units 06:28 10:23 WBC (3.98-10.04) K/mm3 RBC (3.98-5.22) M/mm3 Hgb (11.2-15.7) gm/dl Hct (34.1-44.9) % MCV (79.4-94.8) fl MCH (25.6-32.2) pg MCHC (32.2-35.5) g/dl RDW Std Deviation (36.4-46.3) fL Plt Count (182-369) K/mm3 MPV (9.4-12.3) fl Neut % (Auto) (34.0-71.1) % Lymph % (Auto) (19.3-51.7) % Clinch % (Auto) (4.7-12.5) % Eos % (Auto) (0.7-5.8) Baso % (Auto) (0.1-1.2) % Neut # (Auto) (1.56-6.13) K/mm3 Lymph # (Auto) (1.18-3.74) K/mm3 Clinch # (Auto) (0.24-0.36) K/mm3 Eos # (Auto) (0.04-0.36) K/mm3 Baso # (Auto) (0.01-0.08) K/mm3 Manual Slide Review Sodium (136-145) mEq/L Potassium (3.5-5.1) mEq/L Chloride (98-107) mEq/L Carbon Dioxide (21-32) mEq/L Anion Gap (5-15) BUN (7-18) mg/dL Creatinine (0.55-1.02) mg/dL Est Cr Clr Drug Dosing mL/min Estimated GFR (MDRD) (>60) mL/min BUN/Creatinine Ratio (14-18) Glucose (74-106) mg/dL POC Glucose 95 159 H (70-105) mg/dL Calcium (8.5-10.1) mg/dL Magnesium (1.8-2.4) mg/dl Med Orders - Current: Current Medications Acetaminophen (Tylenol) 650 mg PO Q4H PRN PRN Reason: Pain Last Admin: 05/15/19 15:13 Dose: 650 mg Hydrocodone Bitart/Acetaminophen ([place] 325-5 Mg) 1 tab PO Q4H PRN PRN Reason: Pain Last Admin: 05/19/19 10:50 Dose: 1 tab Albuterol (Proventil Hfa) 1 - 2 gm INH Q4HR PRN PRN Reason: Shortness of Breath Last Admin: 05/19/19 08:05 Dose: 2 puff Albuterol/Ipratropium (Duoneb 3.0-0.5 Mg/3 Ml) 3 ml NEB Q4HRRT PRN PRN Reason: Shortness of Breath Amlodipine Besylate (Norvasc) 5 mg PO DAILY [facility] Last Admin: 05/19/19 08:31 Dose: 5 mg Dextrose/Water (Dextrose 50% In Water) 50 ml IVPUSH ASDIRECTED PRN PRN Reason: Hypoglycemia Duloxetine HCl (Cymbalta) 80 mg PO DAILY [facility] Last Admin: 05/19/19 08:30 Dose: 80 mg Gabapentin (Neurontin) 900 mg PO TID [facility] Last Admin: 05/19/19 08:31 Dose: 900 mg Glipizide (Glucotrol) 5 mg PO BIDMEALS [facility] Last Admin: 05/19/19 06:28 Dose: 5 mg Haloperidol Lactate (Haldol) 2.5 mg IM Q4H PRN PRN Reason: hallucination Hydralazine HCl (Apresoline) 20 mg IVPUSH Q4H PRN PRN Reason: Hypertension Hydrochlorothiazide (Hydrochlorothiazide) 12.5 mg PO BIDDIURETIC [facility] Last Admin: 05/19/19 13:31 Dose: 12.5 mg Insulin Glargine (Lantus) 85 unit SUBCUT BIDAC [facility] Last Admin: 05/19/19 06:29 Dose: 85 units Insulin Human Lispro (Humalog) 0 unit SUBCUT QIDACANDBED [facility]; Protocol Last Admin: 05/19/19 13:34 Dose: 3 units Ketorolac Tromethamine (Toradol) 15 mg IVPUSH Q6H PRN PRN Reason: Pain Lisinopril (Prinivil) 40 mg PO DAILY [facility] Last Admin: 05/19/19 08:32 Dose: 40 mg Miscellaneous Information (Remove Patch) 1 ea TRDERM Q24H [facility] Last Admin: 05/18/19 14:05 Dose: Not Given Mometasone Furoate/Formoterol Fumar (Dulera 100-5 Mcg) 2 puff IH DAILY [facility] Last Admin: 05/19/19 08:05 Dose: 2 puff Nicotine (Habitrol) 21 mg TRDERM Q24H [facility] Last Admin: 05/19/19 13:32 Dose: 21 mg Ondansetron HCl (Zofran Odt) 4 mg PO Q6H PRN PRN Reason: nausea, able to take PO Ondansetron HCl (Zofran) 4 mg IV Q6H PRN PRN Reason: Nausea/Vomiting Ropinirole HCl (Requip) 1 mg PO BID [facility] Last Admin: 05/19/19 08:33 Dose: 1 mg Simethicone (Simethicone) 80 mg PO Q4H PRN PRN Reason: Gas Last Admin: 05/18/19 22:51 Dose: 80 mg Discontinued Medications Albuterol/Ipratropium (Duoneb 3.0-0.5 Mg/3 Ml) 3 ml NEB ONETIME ONE Stop: 05/14/19 22:30 Last Admin: 05/14/19 22:46 Dose: 3 ml Bisacodyl (Dulcolax) 10 mg RECTAL ONETIME ONE Stop: 05/17/19 08:31 Last Admin: 05/17/19 09:06 Dose: 10 mg Duloxetine HCl (Cymbalta) 20 mg PO DAILY [facility] Last Admin: 05/17/19 08:19 Dose: 20 mg Duloxetine HCl (Cymbalta) 60 mg PO ONETIME ONE Stop: 05/17/19 09:26 Last Admin: 05/17/19 09:48 Dose: 60 mg Glipizide (Glucotrol) 2.5 mg PO BIDMEALS [facility] Last Admin: 05/17/19 08:29 Dose: Not Given Hydrochlorothiazide (Hydrochlorothiazide) 25 mg PO ONETIME ONE Stop: 05/16/19 09:01 Last Admin: 05/16/19 08:59 Dose: 25 mg Insulin Glargine (Lantus) 60 unit SUBCUT BIDAC [facility] Last Admin: 05/16/19 07:53 Dose: 60 units Insulin Glargine (Lantus) 80 unit SUBCUT BIDAC [facility] Last Admin: 05/17/19 07:01 Dose: 80 units Lorazepam (Ativan) 1 mg IVPUSH ONETIME ONE Stop: 05/14/19 00:17 Last Admin: 05/15/19 01:37 Dose: Not Given Lorazepam (Ativan) 1 mg IM ONETIME ONE Stop: 05/14/19 00:21 Last Admin: 05/14/19 00:25 Dose: 1 mg Magnesium Hydroxide (Milk Of Magnesia) 30 ml PO ONETIME ONE Stop: 05/16/19 18:39 Last Admin: 05/16/19 18:47 Dose: 30 ml Magnesium Hydroxide (Milk Of Magnesia) 30 ml PO ONETIME ONE Stop: 05/19/19 04:12 Last Admin: 05/19/19 06:30 Dose: Not Given Miscellaneous Information (Remove Patch) 1 ea TRDERM Q24H [facility] Last Admin: 05/18/19 13:51 Dose: 1 ea Nicotine (Habitrol) 14 mg TRDERM Q24H [facility] Last Admin: 05/18/19 14:00 Dose: Not Given Temazepam (Restoril) 15 mg PO BEDTIME PRN PRN Reason: Insomnia - Exam Quality Assessment: Reports: DVT Prophylaxis General: Reports: Alert, Oriented, Cooperative, No Acute Distress HEENT: Reports: Pupils Equal, Pupils Reactive, Mucous Membr. Moist/[place]ck: Reports: Supple, Trachea Midline Lungs: Reports: Clear to Auscultation, Normal Respiratory Effort Cardiovascular: Reports: Regular Rate, Regular Rhythm GI/Abdominal Exam: Normal Bowel Sounds, Soft, Non-Tender, No Distention, No Abnormal Bruit (Female) Exam: Deferred Rectal (Female) Exam: Deferred Back Exam: Reports: Normal Inspection, Decreased Range of Motion Extremities: Non-Tender, No Pedal Edema, Normal Capillary Refill, Other (Right below the knee amputation ) Skin: Reports: Dry Neurological: Reports: No New Focal Deficit Psy/Mental Status: Reports: Alert
== END 2019-05-19 17:50 | disposition home or self-care (01) | DRG 897 ==
LOC: JD.ED 23:52 → JD.MS 05-14 23:02 → JD.ED 05-14 23:18 → OBSVTOIN 05-15 13:09 → JD.MS 05-15 14:17
PROVIDERS: ADMIT Internal Medicine; ATTEND Internal Medicine
DX: F15.10 Other stimulant abuse, uncomplicated (principal); E87.1 Hypo-osmolality and hyponatremia; N18.4 Chronic kidney disease, stage 4 (severe); F33.2 Major depressive disorder, recurrent severe without psychotic features; E11.65 Type 2 diabetes mellitus with hyperglycemia; F99 Mental disorder, not otherwise specified; D64.9 Anemia, unspecified; Z79.51 Long term (current) use of inhaled steroids; Z79.4 Long term (current) use of insulin; Z79.899 Other long term (current) drug therapy; E78.00 Pure hypercholesterolemia, unspecified; J44.9 Chronic obstructive pulmonary disease, unspecified; M79.606 Pain in leg, unspecified; I12.9 Hypertensive chronic kidney disease with stage 1 through stage 4 chronic kidney disease, or unspecified chronic kidney disease; F41.9 Anxiety disorder, unspecified; E11.22 Type 2 diabetes mellitus with diabetic chronic kidney disease; F17.210 Nicotine dependence, cigarettes, uncomplicated; E11.40 Type 2 diabetes mellitus with diabetic neuropathy, unspecified; M10.9 Gout, unspecified; E66.9 Obesity, unspecified; M54.9 Dorsalgia, unspecified; G89.29 Other chronic pain; Z68.37 Body mass index [BMI] 37.0-37.9, adult; Z86.73 Personal history of transient ischemic attack (TIA), and cerebral infarction without residual deficits; Z90.49 Acquired absence of other specified parts of digestive tract
CPT/HCPCS: 36415; 70450; 70450-26; 71045; 71045-26; 80048; 80053; 80306; 81001; 82009; 82947; 82962; 83036; 83735; 84100; 84443; 85007; 85025; 85027; 94640; 94760; 94761; 96372; 97110-GO; 97162-GP; 97165-GO; 97530-GP; 97535-GO; 97535-GP; 97760-GO; 99221; 99231; 99239; 99284; 99285-25; A9270-GY; G0378; G0480; J1815-GY; J2060; J7620-GY; Q3014

== ENCOUNTER 2019-05-23 10:55 | Emergency (ER) | payer MEDICAID ==
[2019-05-23] MEDS ORDERED: Orphenadrine 100 MG Tab.ER PO STA (11:32)
--- NOTE | 2019-05-23 11:38 | EDM.PDOC ---
ED HPI GENERAL MEDICAL PROBLEM - General Chief Complaint: Back Pain or Injury Stated Complaint: KIDNEY PAIN Time Seen by Provider: 05/23/19 11:07 Source of Information: Reports: Patient History Limitations: Reports: No Limitations - History of Present Illness INITIAL COMMENTS - FREE TEXT/NARRATIVE: Ms. Raymundo is a 48-year-old woman with numerous medical issues including diabetes, peripheral neuropathy, a right BKA, chronic kidney disease, anxiety, depression, untreated hepatitis C, and methamphetamine addiction, who was admitted to this hospital from 05/15/2019 through 05/20/2019, and has been residing at the [facility] since. She states that she developed lower back pain about 2 to 3 days ago, and that it is getting worse. She states that the pain radiates to her left toes and down to her right BKA stump. It is unclear if the pain is somehow different from her chronic peripheral neuropathy. The patient has not identified any modifiers, although the pain seems to wax and wane. The patient denies any injury or trauma to her lower back. She denies recent urinary symptoms or fever. She had nausea this morning, but no recent chills, cough, vomiting, constipation, or diarrhea. After discharge, the patient followed up with ÁNGEL Kimball, but tells me that they are arranging for her to see someone else. A follow-up appointment has not yet been made. The patient states that she did receive an influenza vaccine this season. Bilateral Lower Back Pain Score (Numeric/FACES): 8 - Related Data Allergies Allergy/AdvReac Type Severity Reaction Status Date / Time shellfish derived Allergy Unknown Other Verified 05/23/19 11:15 Home Meds: Home Meds Albuterol [Ventolin HFA] 1 - 2 inh INH Q4HR PRN 05/15/19 [History] DULoxetine HCl [Duloxetine HCl] 80 mg PO DAILY 05/15/19 [History] Ergocalciferol (Vitamin D2) [Vitamin D2] 50,000 unit PO MO 05/15/19 [History] Mometasone/Formoterol [Dulera 100-5 MCG] 2 inh INH DAILY 05/15/19 [History] Omeprazole 20 mg PO DAILY 05/15/19 [History] amLODIPine [Norvasc] 5 mg PO DAILY 05/15/19 [History] lisinopriL [Lisinopril] 40 mg PO DAILY 05/15/19 [History] Gabapentin [Neurontin] 900 mg PO TID #63 capsule 05/19/19 [Rx] Insulin Glarg,Human.Rec.Analog [Lantus] 85 unit SUBCUT BIDAC #1700 ml 05/19/19 [ Rx] glipiZIDE [Glucotrol] 5 mg PO BID #40 tablet 05/19/19 [Rx] hydroCHLOROthiazide [Hydrochlorothiazide] 12.5 mg PO BIDDIURETIC #40 cap [Rx] rOPINIRole [Requip] 1 mg PO BID #40 tablet 05/19/19 [Rx] Orphenadrine [Norflex] 1 tab PO Q12H PRN #14 tab.er 05/23/19 [Rx] Past Medical History HEENT History: Reports: Glaucoma Cardiovascular History: Reports: High Cholesterol, Hypertension Respiratory History: Reports: COPD (suspected, not tested) Genitourinary History: Reports: Chronic Renal Insuffiency Musculoskeletal History: Reports: Gout (suspected, not tested) Neurological History: Reports: Neuropathy, Diabetic Psychiatric History: Reports: Addiction (methamphetamine), Anxiety, Depression Endocrine/Metabolic History: Reports: Diabetes, Type II, Obesity/BMI 30+, Other (See Below) (Hyponatremia) Hematologic History: Reports: Anemia - Infectious Disease History Infectious Disease History: Reports: Hepatitis C (untreated) - Past Surgical History HEENT Surgical History: Reports: Oral Surgery (dental extractions) GI Surgical History: Reports: Cholecystectomy (early ) Musculoskeletal Surgical History: Reports: Amputation (right BKA) Social & Family History - Family History Family Medical History: Noncontributory - Tobacco Use Smoking Status *Q: Current Every Day Smoker Years of Tobacco use: 37 Packs/Tins Daily: 0.5 - Caffeine Use Caffeine Use: Reports: None Other Caffeine Use: 3 cup/day - Alcohol Use Alcohol Use History: No - Recreational Drug Use Recreational Drug Use: Yes Drug Use in Last 12 Months: Yes Recreational Drug Type: Reports: Methamphetamine (last snorted/smoked/injected ) - Living Situation & Occupation Living situation: Reports: Single, Other ([employer]) Occupation: Unemployed ED ROS GENERAL - Review of Systems Review Of Systems: Comprehensive ROS is negative, except as noted in HPI. ED EXAM,LOWER BACK PAIN/INJURY - Physical Exam Exam: See Below Exam Limited By: No Limitations General Appearance: Alert, WD/WN, No Apparent Distress Eye Exam: Bilateral Eye: EOMI, Normal Inspection Ears: Normal External Exam, Hearing Grossly Normal Nose: Normal Inspection Throat/Mouth: Normal Inspection, Normal Lips, Normal Voice, No Airway Compromise Head: Atraumatic, Normocephalic Neck: Normal Inspection, Full Range of Motion Respiratory/Chest: No Respiratory Distress, Lungs Clear, Normal Breath Sounds, No Accessory Muscle Use Cardiovascular: Normal Peripheral Pulses, Regular Rate, Rhythm, No Edema, No Gallop, No JVD, No Murmur, No Rub GI/Abdominal: Normal Bowel Sounds, Soft, Non-Tender, No Organomegaly, No Distention, No Abnormal Bruit, No Mass (Female) Exam: Deferred Rectal (Female) Exam: Deferred Back Exam: Normal Inspection, Full Range of Motion, Paraspinal Tenderness ( lower lumbar/sacral) Extremities: Normal Range of Motion, No Pedal Edema, Normal Capillary Refill, Other (Right BKA) Neurological: Alert, No Motor/Sensory Deficits, Oriented x 3 Psychiatric: Normal Affect Skin Exam: Warm, Dry, Intact, Normal Color, No Rash Course - Vital Signs Last Recorded V/S: Last Vital Signs Temp 36.9 C 05/23/19 11:07 Pulse 94 05/23/19 11:07 Resp 16 05/23/19 11:07 BP 185/92 H 05/23/19 11:07 Pulse Ox 100 05/23/19 11:07 - Orders/Labs/Meds Meds: Medications Discontinued Medications Generic Name Dose Route Start Last Admin Trade Name Graysonq PRN Reason Stop Dose Admin Orphenadrine Citrate 100 mg 05/23/19 11:32 Norflex PO 05/23/19 11:33 ONETIME STA - Re-Assessments/Exams Free Text/Narrative Re-Assessment/Exam: 05/23/19 11:33 By history, the patient's lower back pain is due to peripheral neuropathy, which is chronic for this patient, and for which she takes gabapentin. On examination, however, the patient has mild tenderness to palpation of her lower back musculature, suggesting a muscle strain. I will therefore start the patient on Norflex and prescribe a 7-day course. The patient can then follow- up with her PCP. Departure - Departure Time of Disposition: 11:35 Disposition: Home, Self-Care 01 Condition: Good Clinical Impression: Strain of muscle, fascia and tendon of lower back, initial encounter - Discharge Information *PRESCRIPTION DRUG MONITORING PROGRAM REVIEWED*: Not Applicable *COPY OF PRESCRIPTION DRUG MONITORING REPORT IN PATIENT ROS: Not Applicable Referrals: PCP,None [Primary Care Provider] - Additional Instructions: You were seen in the emergency room for 2 to 3 days of lower back pain. Based on your history and physical examination, your lower back pain is most likely due to a muscle strain spasm. You have been started on the muscle relaxant Norflex, and a prescription for Norflex has [facility] to [facility], located in the [facility], across the street from the hospital. Take 1 tablet of Norflex every 12 hours, as prescribed. Follow-up with your PCP at the next available appointment. If any other problems, please do not hesitate to return to the ER. Sepsis Event Note - Evaluation Sepsis Screening Result: No Definite Risk - Focused Exam Vital Signs: Vital Signs Temp Pulse Resp BP Pulse Ox 05/23/19 11:07 36.9 C 94 16 185/92 H 100 Date Exam was Performed: 05/23/19 Time Exam was Performed: 11:33
== END 2019-05-23 11:50 | disposition home or self-care (01) ==
LOC: JD.ED 10:55
DX: S39.012A Strain of muscle, fascia and tendon of lower back, initial encounter (principal); E66.9 Obesity, unspecified; I12.9 Hypertensive chronic kidney disease with stage 1 through stage 4 chronic kidney disease, or unspecified chronic kidney disease; N18.9 Chronic kidney disease, unspecified; E11.22 Type 2 diabetes mellitus with diabetic chronic kidney disease; E11.42 Type 2 diabetes mellitus with diabetic polyneuropathy; Z79.4 Long term (current) use of insulin; Z79.899 Other long term (current) drug therapy; F17.210 Nicotine dependence, cigarettes, uncomplicated; Z90.49 Acquired absence of other specified parts of digestive tract; Z98.890 Other specified postprocedural states; Z91.013 Allergy to seafood; Z89.511 Acquired absence of right leg below knee; X58.XXXA Exposure to other specified factors, initial encounter
CPT/HCPCS: 99283; A9270

== ENCOUNTER 2019-05-25 17:40 | Emergency (ER) | payer MEDICAID ==
[2019-05-25] MEDS ORDERED: Gabapentin 300 MG Cap PO ONE ×2 (18:24→18:51)
--- NOTE | 2019-05-25 18:34 | EDM.PDOC ---
ED HPI GENERAL MEDICAL PROBLEM - General Chief Complaint: Upper Extremity Injury/Pain Stated Complaint: SWOLEN RIGHT HAND Time Seen by Provider: 05/25/19 18:00 Source of Information: Reports: Patient, RN Notes Reviewed History Limitations: Reports: No Limitations - History of Present Illness INITIAL COMMENTS - FREE TEXT/NARRATIVE: Patient is a 48-year-old female who presents to the ED for evaluation of right hand pain and swelling. She states that this developed today, she has pain all the way up and down her arm. She does note a history of neuropathy due to diabetes, and that she takes gabapentin, 900 mg 3 times daily. She states that she subsequently ran out of her gabapentin this last weekend, and was not able to fill the prescription she was given by our hospitalist at hospital discharge , as the pharmacy states she is a primary care provider and documentation on why she needs 900 mg 3 times a day. Patient states that she was most recently seen at a clinic in [place], and they opted to 900 mg 3 times daily. She notes that she did go to our clinic for her follow-up hospital appointment, with Lyubov Cedeño, but states she did not click with her provider so she is wanting to see someone different. She also states that she was working on her Medicaid, and that she got that switched today as well. Treatments HAND III CUTTER: Reports: NSAIDS Right Hand Pain Score (Numeric/FACES): 7 - Related Data Allergies Allergy/AdvReac Type Severity Reaction Status Date / Time shellfish derived Allergy Unknown Other Verified 05/25/19 18:02 Home Meds: Home Meds Albuterol [Ventolin HFA] 1 - 2 inh INH Q4HR PRN 05/15/19 [History] DULoxetine HCl [Duloxetine HCl] 80 mg PO DAILY 05/15/19 [History] Ergocalciferol (Vitamin D2) [Vitamin D2] 50,000 unit PO MO 05/15/19 [History] Mometasone/Formoterol [Dulera 100-5 MCG] 2 inh INH DAILY 05/15/19 [History] Omeprazole 20 mg PO DAILY 05/15/19 [History] amLODIPine [Norvasc] 5 mg PO DAILY 05/15/19 [History] lisinopriL [Lisinopril] 40 mg PO DAILY 05/15/19 [History] Gabapentin [Neurontin] 900 mg PO TID #63 capsule 05/19/19 [Rx] Insulin Glarg,Human.Rec.Analog [Lantus] 85 unit SUBCUT BIDAC #1700 ml 05/19/19 [ Rx] glipiZIDE [Glucotrol] 5 mg PO BID #40 tablet 05/19/19 [Rx] hydroCHLOROthiazide [Hydrochlorothiazide] 12.5 mg PO BIDDIURETIC #40 cap [Rx] rOPINIRole [Requip] 1 mg PO BID #40 tablet 05/19/19 [Rx] Orphenadrine [Norflex] 1 tab PO Q12H PRN #14 tab.er 05/23/19 [Rx] Past Medical History HEENT History: Reports: Glaucoma Cardiovascular History: Reports: High Cholesterol, Hypertension Respiratory History: Reports: COPD Genitourinary History: Reports: Chronic Renal Insuffiency Musculoskeletal History: Reports: Gout Neurological History: Reports: Neuropathy, Diabetic Other Neuro History: "maybe" Psychiatric History: Reports: Addiction, Anxiety, Depression Endocrine/Metabolic History: Reports: Diabetes, Type II, Obesity/BMI 30+, Other (See Below) Hematologic History: Reports: Anemia - Infectious Disease History Infectious Disease History: Reports: Hepatitis C (untreated) - Past Surgical History HEENT Surgical History: Reports: Oral Surgery GI Surgical History: Reports: Cholecystectomy Musculoskeletal Surgical History: Reports: Amputation Social & Family History - Family History Family Medical History: Noncontributory - Tobacco Use Smoking Status *Q: Current Every Day Smoker Years of Tobacco use: 37 Packs/Tins Daily: 0.5 - Caffeine Use Caffeine Use: Reports: Coffee Other Caffeine Use: 3 cup/day - Recreational Drug Use Recreational Drug Use: Yes Drug Use in Last 12 Months: Yes Recreational Drug Type: Reports: Methamphetamine - Living Situation & Occupation Living situation: Reports: Single, Other ([employer]) Occupation: Unemployed Review of Systems - Review of Systems Review Of Systems: See Below Constitutional: Denies: Chills, Fever Respiratory: Denies: Shortness of Breath, Cough Cardiovascular: Denies: Chest Pain GI/Abdominal: Denies: Abdominal Pain Musculoskeletal: Reports: Arm Pain (R arm/hand pain/swelling) Skin: Reports: Bruising (noted to R forearm and AC space, she states that this is from her hospital stay.) Neurological: Reports: Tingling ( R arm/hand). Denies: Dizziness, Headache, Numbness ED EXAM, GENERAL - Physical Exam Exam: See Below Exam Limited By: No Limitations General Appearance: Alert, WD/WN, No Apparent Distress Eye Exam: Bilateral Eye: EOMI, Normal Inspection, PERRL Respiratory/Chest: No Respiratory Distress, Lungs Clear, Normal Breath Sounds, No Accessory Muscle Use, Chest Non-Tender Cardiovascular: Normal Peripheral Pulses, Regular Rate, Rhythm, No Edema, No Murmur Peripheral Pulses: 3+: Radial (L), Radial (R) GI/Abdominal: Normal Bowel Sounds, Soft, Non-Tender, No Distention, No Mass Extremities: Normal Inspection (Patient has a BKA on the right leg.), Normal Capillary Refill, Limited Range of Motion (Of right arm due to pain. Patient elicits minimal pain response. She has a somewhat decreased recreation facility attendant strength.) Neurological: Alert, Oriented, CN II-XII Intact (grossly), Normal Cognition, No Motor/Sensory Deficits Psychiatric: Normal Affect, Normal Mood Skin Exam: Warm, Dry, Intact, Normal Color, No Rash Course - Vital Signs Last Recorded V/S: Last Vital Signs Temp 97.9 F 05/25/19 17:59 Pulse 89 05/25/19 17:59 Resp 18 05/25/19 17:59 BP 172/88 H 05/25/19 17:59 Pulse Ox 100 05/25/19 17:59 - Orders/Labs/Meds Orders: Active Orders 24 hr Category Date Time Status Gabapentin [Neurontin] Med 05/25/19 18:51 Once 900 mg PO ONETIME ONE Meds: Medications Discontinued Medications Generic Name Dose Route Start Last Admin Trade Name Brennon PRN Reason Stop Dose Admin Gabapentin 900 mg 05/25/19 18:24 05/25/19 18:43 Neurontin PO 05/25/19 18:25 900 mg ONETIME ONE Administration - Re-Assessments/Exams Free Text/Narrative Re-Assessment/Exam: 05/25/19 18:33 Patient presents to the ED for the evaluation of right arm pain/swelling. We did discuss management options, she states that she was not able to fill the 900 mg prescription as previously given by Freddy Lamas, our hospitalist [facility], as she states the pharmacy wanted to know why she was taking such a high dose. At this time I will provide her with 900 mg of gabapentin in the ER, and will give her a prescription for 600 mg 3 times daily for the next few days, and have her follow-up with a another provider of choice so she can establish care with a primary care provider. Patient is okay with this plan, she states that she was receiving relief with the 600 mg when she did receive it. Departure - Departure Time of Disposition: 18:34 Disposition: Home, Self-Care 01 Condition: Fair Clinical Impression: Peripheral neuropathic pain - Discharge Information *PRESCRIPTION DRUG MONITORING PROGRAM REVIEWED*: No *COPY OF PRESCRIPTION DRUG MONITORING REPORT IN PATIENT ROS: No Instructions: Neuropathic Pain Referrals: PCP,None [Primary Care Provider] - Forms: ED Department Discharge Additional Instructions: You were evaluated in the ER today regarding your right hand pain/swelling. You were given a dose of gabapentin, 900 mg in the ED tonight for management. You were given another dose of your 900mg to be taken tomorrow AM. Recommend that you establish care with another primary care provider of choice, we have multiple family care providers in the clinic, our clinics number is . Liz. Hernandez, Jared Montilla, Kurtis Barba, Mitra Landaverde are some of the providers available. If not, please have your previous records sent to the medicaid office for documentation for the dosing of your Gabapentin. If your symptoms should change or worsen, do not hesitate to return to the ER. Sepsis Event Note - Evaluation Sepsis Screening Result: No Definite Risk - Focused Exam Vital Signs: Vital Signs Temp Pulse Resp BP Pulse Ox 05/25/19 17:59 97.9 F 89 18 172/88 H 100 Date Exam was Performed: 05/25/19 Time Exam was Performed: 18:51 - My Orders Last 24 Hours: My Active Orders 05/25/19 18:51 Gabapentin [Neurontin] 900 mg PO ONETIME ONE - Assessment/Plan Last 24 Hours: My Active Orders 05/25/19 18:51 Gabapentin [Neurontin] 900 mg PO ONETIME ONE
== END 2019-05-25 19:30 | disposition home or self-care (01) ==
LOC: JD.ED 17:40
DX: E11.42 Type 2 diabetes mellitus with diabetic polyneuropathy (principal); E78.00 Pure hypercholesterolemia, unspecified; I12.9 Hypertensive chronic kidney disease with stage 1 through stage 4 chronic kidney disease, or unspecified chronic kidney disease; E11.22 Type 2 diabetes mellitus with diabetic chronic kidney disease; N18.9 Chronic kidney disease, unspecified; J44.9 Chronic obstructive pulmonary disease, unspecified; M10.9 Gout, unspecified; F41.9 Anxiety disorder, unspecified; F32.9 Major depressive disorder, single episode, unspecified; E66.9 Obesity, unspecified; Z68.35 Body mass index [BMI] 35.0-35.9, adult; F17.210 Nicotine dependence, cigarettes, uncomplicated; Z91.013 Allergy to seafood; Z79.899 Other long term (current) drug therapy; Z79.4 Long term (current) use of insulin
CPT/HCPCS: 99283; A9270

== ENCOUNTER 2019-05-28 22:23 | Emergency (ER) | payer MEDICAID ==
--- NOTE | 2019-05-28 23:11 | EDM.PDOCBH ---
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 Epithelial Cells (0-5) /hpf Urine Bacteria (FEW) /hpf Urine Mucus (FEW) /hpf Urine Opiates Screen (QQPQCS=208) Ur Buprenorphine Scrn (CUTOFF=10) Ur Oxycodone Screen (EDF3ZR=848) Urine Methadone Screen (FMEYHV=217) Ur Propoxyphene Screen (EGUVWZ=967) Ur Barbiturates Screen (WEDLQB=173) Ur Tricyclics Screen (PUGQKJ=722) Ur Phencyclidine Scrn (CUTOFF=25) Ur Amphetamine Screen (UQABRO=705) U Methamphetamines Scrn (ISWCLU=640) U Benzodiazepines Scrn (HWNLFR=243) U Cocaine Metab Screen (SKYTJL=766) U Marijuana (THC) Screen (CUTOFF=50) 05/29/19 05/29/19 05/29/19 Range/Units 06:16 06:16 06:21 WBC (3.98-10.04) K/mm3 RBC (3.98-5.22) M/mm3 Hgb (11.2-15.7) gm/dl Hct (34.1-44.9) % MCV (79.4-94.8) fl MCH (25.6-32.2) pg MCHC (32.2-35.5) g/dl RDW Std Deviation (36.4-46.3) fL Plt Count (182-369) K/mm3 MPV (9.4-12.3) fl Neut % (Auto) (34.0-71.1) % Lymph % (Auto) (19.3-51.7) % [place] % (Auto) (4.7-12.5) % Eos % (Auto) (0.7-5.8) Baso % (Auto) (0.1-1.2) % Neut # (Auto) (1.56-6.13) K/mm3 Lymph # (Auto) (1.18-3.74) K/mm3 [place] # (Auto) (0.24-0.36) K/mm3 Eos # (Auto) (0.04-0.36) K/mm3 Baso # (Auto) (0.01-0.08) K/mm3 Manual Slide Review Sodium (136-145) mEq/L Potassium (3.5-5.1) mEq/L Chloride (98-107) mEq/L Carbon Dioxide (21-32) mEq/L Anion Gap (5-15) BUN (7-18) mg/dL Creatinine (0.55-1.02) mg/dL Est Cr Clr Drug Dosing mL/min Estimated GFR (MDRD) (>60) mL/min BUN/Creatinine Ratio (14-18) Glucose (74-106) mg/dL POC Glucose 129 H (70-105) mg/dL Calcium (8.5-10.1) mg/dL Magnesium (1.8-2.4) mg/dl Total Bilirubin (0.2-1.0) mg/dL AST (15-37) U/L ALT (14-59) U/L Alkaline Phosphatase (46-116) U/L C-Reactive Protein (<1.0) mg/dL NT-Pro-B Natriuret Pep (0-125) pg/mL Total Protein (6.4-8.2) g/dl Albumin (3.4-5.0) g/dl Globulin gm/dL Albumin/Globulin Ratio (1-2) Urine Color Yellow (Yellow) Urine Appearance Clear (Clear) Urine pH 6.5 (5.0-8.0) Ur Specific Soso 1.025 (1.005-1.030) Urine Protein 3+ H (Negative) Urine Glucose (UA) Negative (Negative) Urine Ketones Negative (Negative) Urine Occult Blood Negative (Negative) Urine Nitrite Negative (Negative) Urine Bilirubin Negative (Negative) Urine Urobilinogen 0.2 (0.2-1.0) Ur Leukocyte Esterase Negative (Negative) Urine RBC Not seen (0-5) /hpf Urine WBC Not seen (0-5) /hpf Ur Epithelial Cells 0-5 (0-5) /hpf Urine Bacteria Few (FEW) /hpf Urine Mucus Few (FEW) /hpf Urine Opiates Screen Negative (HVTCCT=900) Ur Buprenorphine Scrn Negative (CUTOFF=10) Ur Oxycodone Screen Negative (BYL0KU=839) Urine Methadone Screen Negative (GDGZGN=869) Ur Propoxyphene Screen Negative (OLQDFB=033) Ur Barbiturates Screen Negative (CSRMTS=316) Ur Tricyclics Screen Negative (ZYTTWA=967) Ur Phencyclidine Scrn Negative (CUTOFF=25) Ur Amphetamine Screen Presumptive positive H (EYCXRU=332) U Methamphetamines Scrn Presumptive positive H (RCZGGK=117) U Benzodiazepines Scrn Negative (UTVCLH=668) U Cocaine Metab Screen Negative (RSTCKA=031) U Marijuana (THC) Screen Negative (CUTOFF=50) Medications Discontinued Medications Generic Name Dose Route Start Last Admin Trade Name Freq PRN Reason Stop Dose Admin Dextrose/Water Confirm 05/29/19 03:06 05/29/19 03:12 Dextrose 50% In Water Administered 05/29/19 03:07 Not Given Dose 50 ml .ROUTE .STK-MED ONE Dextrose/Water 25 ml 05/29/19 03:09 05/29/19 03:11 Dextrose 50% In Water IVPUSH 05/29/19 03:10 25 ml ONETIME ONE Administration Dextrose/Water 25 ml 05/29/19 03:45 05/29/19 03:46 Dextrose 50% In Water IVPUSH 25 ml ASDIRECTED PRN Administration Blood Glucose Dextrose/Water 50 ml 05/29/19 04:23 05/29/19 04:35 Dextrose 50% In Water IVPUSH 05/29/19 04:24 50 ml ONETIME ONE Administration Diphenhydramine HCl 50 mg 05/29/19 00:43 05/29/19 06:24 Benadryl IVPUSH 05/29/19 00:44 Not Given ONETIME ONE Gabapentin 900 mg 05/28/19 23:13 05/28/19 23:47 Neurontin PO 05/28/19 23:14 900 mg ONETIME ONE Administration Glipizide 5 mg 05/28/19 23:21 05/28/19 23:47 Glucotrol Xl PO 05/28/19 23:22 5 mg ONETIME ONE Administration Sodium Chloride 1,000 mls @ 150 mls/hr 05/28/19 23:15 05/28/19 23:31 Normal Saline IV 150 mls/hr ASDIRECTED KENJI Administration Dextrose/Sodium Chloride 1,000 mls @ 150 mls/hr 05/29/19 04:30 05/29/19 04:35 Dextrose 5%-Normal Saline IV 150 mls/hr ASDIRECTED KENJI Administration Insulin Glargine 85 unit 05/28/19 23:21 05/29/19 00:00 Lantus SUBCUT 05/28/19 23:22 85 units ONETIME ONE Administration Lorazepam 2 mg 05/28/19 23:45 05/28/19 23:53 Ativan IVPUSH 05/28/19 23:46 2 mg ONETIME ONE Administration Olanzapine 5 mg 05/29/19 00:41 05/29/19 06:24 Zyprexa PO 05/29/19 00:42 Not Given ONETIME ONE Pantoprazole Sodium 40 mg 05/28/19 23:22 05/28/19 23:47 Protonix PO 05/28/19 23:23 40 mg ONETIME ONE Administration Re-Assessment/Re-Exam: 48-year-old [place] lady who was dropped off here from the bus from [facility] about 10 days ago. Hospital on multiple occasions since that time. She is essentially homeless. She was brought in from the Re-Assessment/Re-Exam Date: 05/29/19 (Labs reveal a white count of 10.33. The outer differential shows 51.5% neutrophils. Hemoglobin is low at 9.8 with hematocrit of 32.8. Platelet count 462,000 which is elevated. Essential thrombocytosis.) Re-Assessment/Re-Exam Time: 00:42 (Ativan did not help the patient settle. She is still exhibiting somewhat bizarre tardive dyskinesia-like movements of her head and neck. Will try Benadryl 50 mg IV and Zyprexa 5 mg by mouth.Chemistry reveals a sodium of 141 and a potassium slightly elevated at 5.3. Chloride is 111 with a bicarbonate of 17. Anion gap is 18.3 indicating that she is mildly volume depleted. BUN was 45 with a creatinine of 2.4 GFR is down to 21 which is stage IV chronic kidney disease. Glucose is 105 calcium is slightly low at 8.0. Magnesium normal at 2.1. Liver function is normal. Prostate is minimally elevated 138 likely due to mild tertiary hyperparathyroidism. C-reactive protein is 0.7 BNP is 667. Total protein is 7.3 with a no be fraction slightly low at 2.9. She did eat before she fell asleep had a sandwich and a Sprite. Should will be checked by fingerstick at 0300 hrs.) Medical Clearance: 05/29/19 01:08 just as we were going to give her further medications to provide some sedation and get her some sleep overnight patient did fall asleep presumably due to the effect of the Ativan. Therefore she did not receive any Zyprexa and she did not receive Benadryl IV. I believe the best option for care is having [facility] become involved in her care with a view to admission to [facility] for psychiatric evaluation and treatment and then dispositioned to a [facility] setting where she can be cared for appropriately as she is homeless at this point in time. 05/29/19 03:09 Bedside blood glucose was down to 45. Will be given a half of an amp of D50 percent dextrose. Blood sugar will be checked in 90 minutes. 05/29/19 03:40 current blood sugar is now 78. She will now be given the second half of the amp of D50 percent dextrose. 05/29/19 04:25 one sugar at this time is still 92. Going to give her a full amp of D50 percent to prevent hypoglycemia. Her IV is just about finished will be changed to D5 normal saline 150 mils per hour. Blood sugar to be checked in 2 hours time. Sepsis Event Note - Evaluation Sepsis Screening Result: No Definite Risk - Focused Exam Date Exam was Performed: 06/01/19 Time Exam was Performed: 07:16
[2019-05-28] MEDS ORDERED: Gabapentin 600 MG Tab PO ONE (23:13)
[2019-05-28] MEDS ORDERED: Sodium Chloride 0.9% 1,000 ML IV SCH (23:15)
[2019-05-28] MEDS ORDERED: glipiZIDE 5 MG Tab.ER PO ONE (23:21)
[2019-05-28] MEDS ORDERED: Insulin Glarg,Human.Rec.Analog 100 Unit/ML SUBCUT ONE (23:21)
[2019-05-28] MEDS ORDERED: Pantoprazole 40 MG Tab.CR PO ONE (23:22)
[2019-05-28] MEDS ORDERED: LORazepam 2 MG/ML SDV IVPUSH ONE (23:45)
[2019-05-29] MEDS ORDERED: OLANZapine 5 MG Tab PO ONE (00:41)
[2019-05-29] MEDS ORDERED: diphenhydrAMINE 50 MG/ML SDV IVPUSH ONE (00:43)
[2019-05-29] MEDS ORDERED: 50% Dextrose in Water 50 ML Syringe ONE (03:06)
[2019-05-29] MEDS ORDERED: 50% Dextrose in Water 50 ML Syringe IVPUSH ONE ×2 (03:09→04:23)
[2019-05-29] MEDS ORDERED: 50% Dextrose in Water 50 ML Syringe IVPUSH PRN (03:45)
[2019-05-29] MEDS ORDERED: Dextrose 5%-0.9% NaCl 1,000 ML IV SCH (04:30)
== END 2019-05-29 10:55 | disposition home or self-care (01) ==
LOC: JD.ED 22:23
DX: E11.649 Type 2 diabetes mellitus with hypoglycemia without coma (principal); I12.9 Hypertensive chronic kidney disease with stage 1 through stage 4 chronic kidney disease, or unspecified chronic kidney disease; E11.22 Type 2 diabetes mellitus with diabetic chronic kidney disease; N18.9 Chronic kidney disease, unspecified; E78.00 Pure hypercholesterolemia, unspecified; J44.9 Chronic obstructive pulmonary disease, unspecified; E11.40 Type 2 diabetes mellitus with diabetic neuropathy, unspecified; M10.9 Gout, unspecified; E66.9 Obesity, unspecified; Z68.35 Body mass index [BMI] 35.0-35.9, adult; F17.210 Nicotine dependence, cigarettes, uncomplicated; Z91.013 Allergy to seafood; Z79.899 Other long term (current) drug therapy; Z79.4 Long term (current) use of insulin
CPT/HCPCS: 36415; 80053; 80306; 81001; 82962; 83735; 83880; 85025; 86140; 93005; 96361; 96374; 99285; A9270; J1815; J2060; J7030; J7042; 93010

== ENCOUNTER 2019-06-22 04:45 | Emergency (ER) | payer MEDICAID ==
[2019-06-22] MEDS ORDERED: Ondansetron 4 MG Tab.DIS PO ONE (06:06)
--- NOTE | 2019-06-22 06:11 | EDM.PDOC ---
ED HPI GENERAL MEDICAL PROBLEM - General Chief Complaint: Abdominal Pain Stated Complaint: [facility] Time Seen by Provider: 06/22/19 05:47 Source of Information: Reports: Patient History Limitations: Reports: No Limitations - History of Present Illness INITIAL COMMENTS - FREE TEXT/NARRATIVE: Ms. Raymundo is a 48-year-old woman with numerous medical issues, including diabetes, peripheral neuropathy, a right BKA, chronic kidney disease, anxiety, depression, untreated hepatitis C, and methamphetamine addiction, who is currently residing at a hotel. She states that she went out to have a cigarette around 02:00, and suddenly developed sharp epigastric pain that took her breath away. She states that the pain comes and goes, lasting about 5 minutes, then recurring about every 20 minutes. She states that she had some nausea and emesis when the pain initially started. She also reports she has been constipated for the last 2 days. No diarrhea. No urinary symptoms. No recent fever. No prior similar symptoms. Here in the ED, the patient is found to be hemodynamically stable. When I entered her room, I found her to be sound asleep, and during my interview with her, I needed to wake her up several times. The patient does not recall the name of her [facility] PCP. Abdomen Pain Score (Numeric/FACES): 8 - Related Data Allergies Allergy/AdvReac Type Severity Reaction Status Date / Time shellfish derived Allergy Unknown Other Verified 06/22/19 04:55 Home Meds: Home Meds Albuterol [Ventolin HFA] 1 - 2 inh INH Q4HR PRN 05/15/19 [History] DULoxetine HCl [Duloxetine HCl] 80 mg PO DAILY 05/15/19 [History] Ergocalciferol (Vitamin D2) [Vitamin D2] 50,000 unit PO MO 05/15/19 [History] Mometasone/Formoterol [Dulera 100-5 MCG] 2 inh INH DAILY 05/15/19 [History] Omeprazole 20 mg PO DAILY 05/15/19 [History] amLODIPine [Norvasc] 5 mg PO DAILY 05/15/19 [History] lisinopriL [Lisinopril] 40 mg PO DAILY 05/15/19 [History] Gabapentin [Neurontin] 900 mg PO TID #63 capsule 05/19/19 [Rx] Insulin Glarg,Human.Rec.Analog [Lantus] 85 unit SUBCUT BIDAC #1700 ml 05/19/19 [ Rx] glipiZIDE [Glucotrol] 5 mg PO BID #40 tablet 05/19/19 [Rx] hydroCHLOROthiazide [Hydrochlorothiazide] 12.5 mg PO BIDDIURETIC #40 cap [Rx] rOPINIRole [Requip] 1 mg PO BID #40 tablet 05/19/19 [Rx] Orphenadrine [Norflex] 1 tab PO Q12H PRN #14 tab.er 05/23/19 [Rx] Insulin Lispro [HumaLOG] 05/28/19 [History] Tiotropium [Spiriva HandiHaler] 1 inh PO DAILY 05/28/19 [History] Past Medical History HEENT History: Reports: Glaucoma Cardiovascular History: Reports: High Cholesterol, Hypertension Respiratory History: Reports: COPD (suspected, not tested) Genitourinary History: Reports: Chronic Renal Insuffiency Musculoskeletal History: Reports: Gout (suspected, not tested) Neurological History: Reports: Neuropathy, Diabetic Psychiatric History: Reports: Addiction (methamphetamine), Anxiety, Depression Endocrine/Metabolic History: Reports: Diabetes, Type II, Obesity/BMI 30+ Hematologic History: Reports: Anemia - Infectious Disease History Infectious Disease History: Reports: Hepatitis C (untreated) - Past Surgical History HEENT Surgical History: Reports: Oral Surgery (dental extractions) GI Surgical History: Reports: Cholecystectomy (early ) Musculoskeletal Surgical History: Reports: Amputation (right BKA) Social & Family History - Family History Family Medical History: Noncontributory - Tobacco Use Smoking Status *Q: Current Every Day Smoker Years of Tobacco use: 37 Packs/Tins Daily: 0.5 - Caffeine Use Caffeine Use: Reports: Soda Other Caffeine Use: 3 cup/day - Alcohol Use Alcohol Use History: No - Recreational Drug Use Recreational Drug Use: Yes Drug Use in Last 12 Months: Yes Recreational Drug Type: Reports: Methamphetamine (last injected late May 2019) - Living Situation & Occupation Living situation: Reports: Single, Other ([place] [employer]) Occupation: Unemployed ED ROS GENERAL - Review of Systems Review Of Systems: Comprehensive ROS is negative, except as noted in HPI. ED EXAM, GI/ABD - Physical Exam Exam: See Below Exam Limited By: No Limitations General Appearance: Alert, WD/WN, No Apparent Distress (found sleeping) Eyes: Bilateral: Normal Appearance, EOMI Ears: Normal External Exam, Hearing Grossly Normal Nose: Normal Inspection Throat/Mouth: Normal Inspection, Normal Lips, Normal Voice, No Airway Compromise Head: Atraumatic, Normocephalic Neck: Normal Inspection, Full Range of Motion Respiratory/Chest: No Respiratory Distress, Lungs Clear, Normal Breath Sounds, No Accessory Muscle Use Cardiovascular: Normal Peripheral Pulses, Regular Rate, Rhythm, No Gallop, No JVD, No Murmur, No Rub GI/Abdominal Exam: Normal Bowel Sounds, Soft, No Organomegaly, No Distention, No Abnormal Bruit, No Mass, Tender (Epigastrium only. Nontender elsewhere.) (Female) Exam: Deferred Rectal (Female) Exam: Deferred Back Exam: Normal Inspection, Full Range of Motion, NT Extremities: Normal Range of Motion, No Pedal Edema, Normal Capillary Refill, Other (Right BKA) Neurological: Oriented, No Motor/Sensory Deficits, Inattentive (sleepy) Psychiatric: Normal Affect Skin Exam: Warm, Dry, Intact, Normal Color, No Rash Course - Vital Signs Last Recorded V/S: Last Vital Signs Temp 36.2 C 06/22/19 04:52 Pulse 85 06/22/19 04:52 Resp 24 H 06/22/19 04:52 BP 128/61 06/22/19 04:52 Pulse Ox 96 06/22/19 04:52 - Orders/Labs/Meds Orders: Active Orders 24 hr Category Date Time Status CBC WITH MANUAL DIFF [HEME] Stat Lab 06/22/19 06:57 Results Labs: Laboratory Tests 06/22/19 06/22/19 Range/Units 06:57 06:57 WBC 11.71 H (3.98-10.04) K/mm3 RBC 3.91 L (3.98-5.22) M/mm3 Hgb 9.5 L (11.2-15.7) gm/dl Hct 31.8 L (34.1-44.9) % MCV 81.3 (79.4-94.8) fl MCH 24.3 L (25.6-32.2) pg MCHC 29.9 L (32.2-35.5) g/dl RDW Std Deviation 49.6 H (36.4-46.3) fL Plt Count 413 H (182-369) K/mm3 MPV 8.8 L (9.4-12.3) fl Sodium 142 (136-145) mEq/L Potassium 5.1 (3.5-5.1) mEq/L Chloride 111 H (98-107) mEq/L Carbon Dioxide 20 L (21-32) mEq/L Anion Gap 16.1 H (5-15) BUN 25 H (7-18) mg/dL Creatinine 1.9 H (0.55-1.02) mg/dL Est Cr Clr Drug Dosing 35.73 mL/min Estimated GFR (MDRD) 28 (>60) mL/min BUN/Creatinine Ratio 13.2 L (14-18) Glucose 90 (74-106) mg/dL Calcium 7.6 L (8.5-10.1) mg/dL Magnesium 1.8 (1.8-2.4) mg/dl Total Bilirubin 0.1 L (0.2-1.0) mg/dL AST 13 L (15-37) U/L ALT 26 (14-59) U/L Alkaline Phosphatase 116 (46-116) U/L Total Protein 6.6 (6.4-8.2) g/dl Albumin 2.3 L (3.4-5.0) g/dl Globulin 4.3 gm/dL Albumin/Globulin Ratio 0.5 L (1-2) Lipase 178 (73-393) U/L Meds: Medications Discontinued Medications Generic Name Dose Route Start Last Admin Trade Name Freq PRN Reason Stop Dose Admin Sodium Chloride 1,000 mls @ 150 mls/hr 06/22/19 06:15 Normal Saline IV ASDIRECTED [facility] Ondansetron HCl 4 mg 06/22/19 06:06 Zofran Odt PO 06/22/19 06:07 ONETIME ONE - Re-Assessments/Exams Free Text/Narrative Re-Assessment/Exam: 06/22/19 06:07 As above, the patient is complaining of epigastric and that is coming and going , and what sounds like a single episode of emesis when the event began around 2: 00 this morning. She is tender to the epigastrium, but nontender elsewhere. I have ordered a workup that includes a CBC, CMP, magnesium level, lipase level, and an upright abdominal x-ray. She will receive IV fluid and IV Zofran. 06/22/19 07:15 3 right decubitus radiographs of the abdomen appear to demonstrate a nonspecific bowel gas pattern and some stool in the cecum. No free air. Formal read per the Radiologist pending. 06/22/19 07:46 The patient's CBC is remarkable for a WBC count elevated at 11.71, an H/H depressed at 9.5/31.8, and platelets elevated at 413,000. Her CMP is remarkable for a chloride elevated at 111, a bicarbonate depressed at 28 with an anion gap elevated at 16.1, and a BUN/Cr elevated at 25/1.9, with the remainder of her CMP being unremarkable. Her magnesium level is within normal limits at 1.8. Her lipase is within normal limits at 178. Review of prior medical records finds that the patient's BUN/Cr were 45/2.4 on . 06/22/19 07:53 Test results discussed with the patient. I explained that with a normal lipase level, the most likely explanation for her pain is GERD. I offered to perform a CT scan of her abdomen and pelvis if she wanted us to evaluate further, however , but that the iodinated contrast might further injure her kidneys. The patient agreed that her pain was due to GERD, and refused the CT scan. I explained to her that it may be that her omeprazole is not adequate to control her GERD. She stated that she will be following up with her PCP today, she believes. I suggested that she discuss her GERD issue with her PCP. Departure - Departure Time of Disposition: 07:57 Disposition: Home, Self-Care 01 Condition: Good Clinical Impression: GERD (gastroesophageal reflux disease) - Discharge Information *PRESCRIPTION DRUG MONITORING PROGRAM REVIEWED*: Not Applicable *COPY OF PRESCRIPTION DRUG MONITORING REPORT IN PATIENT ROS: Not Applicable Forms: ED Department Discharge Additional Instructions: You were seen in the emergency room after developing sudden onset but intermittent upper central abdominal pain. Workup in the ER included blood work, and x-rays of your abdomen. Your workup confirmed that you have chronic renal insufficiency, however, the remainder of your workup was unremarkable. Based on your history, physical exam, and ER test, the cause of your abdominal pain was most likely due to GERD. We recommend that you discuss this issue with your PCP when you see them next. It may be that you need to switch your omeprazole to a different PPI. If any other problems, please do not hesitate to return to the ER. Sepsis Event Note - Evaluation Sepsis Screening Result: No Definite Risk - Focused Exam Vital Signs: Vital Signs Temp Pulse Resp BP Pulse Ox 06/22/19 04:52 36.2 C 85 24 H 128/61 96 Date Exam was Performed: 06/22/19 Time Exam was Performed: 07:57 - My Orders Last 24 Hours: My Active Orders 06/22/19 06:57 CBC WITH MANUAL DIFF [HEME] Stat - Assessment/Plan Last 24 Hours: My Active Orders 06/22/19 06:57 CBC WITH MANUAL DIFF [HEME] Stat
[2019-06-22] MEDS ORDERED: Sodium Chloride 0.9% 1,000 ML IV SCH (06:15)
--- NOTE | 2019-06-22 07:39 | CR ---
Abdomen: Decubitus views of the abdomen were obtained. Comparison: No previous study. Degenerative change is noted throughout the spine. Surgical clips are seen within the upper right abdomen. Bowel gas pattern appears normal. No free air is seen. Impression: 1. No evidence of free air. 2. Nothing acute is definitely appreciated on decubitus abdominal study. Diagnostic code #2 This report was dictated in [place] Standard Time
== END 2019-06-22 08:02 | disposition home or self-care (01) ==
LOC: JD.ED 04:45
DX: K21.9 Gastro-esophageal reflux disease without esophagitis (principal); F17.210 Nicotine dependence, cigarettes, uncomplicated; I12.9 Hypertensive chronic kidney disease with stage 1 through stage 4 chronic kidney disease, or unspecified chronic kidney disease; N18.9 Chronic kidney disease, unspecified; E11.42 Type 2 diabetes mellitus with diabetic polyneuropathy; J44.9 Chronic obstructive pulmonary disease, unspecified; E11.40 Type 2 diabetes mellitus with diabetic neuropathy, unspecified; E66.9 Obesity, unspecified; F41.9 Anxiety disorder, unspecified; F32.9 Major depressive disorder, single episode, unspecified; Z91.013 Allergy to seafood; E11.22 Type 2 diabetes mellitus with diabetic chronic kidney disease; Z79.4 Long term (current) use of insulin; Z79.899 Other long term (current) drug therapy; Z68.36 Body mass index [BMI] 36.0-36.9, adult
CPT/HCPCS: 36415; 74018; 74018-26; 80053; 83690; 83735; 85007; 85027; 99283; 99284-25

== ENCOUNTER 2019-06-27 20:48 | Emergency (ER) | payer MEDICAID ==
[2019-06-27] MEDS ORDERED: Ondansetron 4 MG/2 ML SDV IVPUSH ONE (21:05)
[2019-06-27] MEDS ORDERED: Sodium Chloride 0.9% 10 ML Syringe FLUSH PRN (21:05)
[2019-06-27] MEDS ORDERED: HYDROmorphone 1 MG/ML Syringe IVPUSH ONE (21:06)
[2019-06-27] MEDS ORDERED: Sodium Chloride 0.9% 1,000 ML IV SCH (21:15)
[2019-06-27] MEDS ORDERED: Ondansetron 4 MG Tab.DIS PO ONE (22:12)
[2019-06-27] MEDS ORDERED: HYDROmorphone 0.5 MG/0.5 ML Syringe IVPUSH ONE (23:10)
[2019-06-27] MEDS ORDERED: Sodium Chloride 0.9% 1,000 ML IV ONE (23:11)
[2019-06-27] MEDS ORDERED: Metoclopramide 10 MG/2 ML SDV IVPUSH ONE (23:20)
--- NOTE | 2019-06-27 23:20 | EDM.PDOC ---
ED HPI GENERAL MEDICAL PROBLEM - General Chief Complaint: Gastrointestinal Problem Stated Complaint: [facility] Time Seen by Provider: 06/27/19 20:55 Source of Information: Reports: Patient, EMS History Limitations: Reports: No Limitations - History of Present Illness INITIAL COMMENTS - FREE TEXT/NARRATIVE: The patient presents with generalized abdominal pain, nausea and vomiting. This started a few days ago. She ran out of her gabapentin. She also admitted to EMS that she took some meth. She was seen here a few months ago when she was on her way east from [place] and got stuck here. She went to [place] and now she is back. She has right leg amputation. She has renal insufficiency. She has phantom limb pain and neuropathy. Onset: Gradual Duration: Day(s): Location: Reports: Abdomen Quality: Reports: Sharp Severity: Moderate Improves with: Reports: None Worsens with: Reports: None Associated Symptoms: Reports: Nausea/Vomiting. Denies: Chest Pain, Cough, Fever /Chills, Headaches, Shortness of Breath Abdominal Pain Score (Numeric/FACES): 7 Lower Back Pain Score (Numeric/FACES): 7 - Related Data Allergies Allergy/AdvReac Type Severity Reaction Status Date / Time shellfish derived Allergy Unknown Other Verified 06/22/19 04:55 Home Meds: Home Meds Albuterol [Ventolin HFA] 1 - 2 inh INH Q4HR PRN 05/15/19 [History] DULoxetine HCl [Duloxetine HCl] 80 mg PO DAILY 05/15/19 [History] Ergocalciferol (Vitamin D2) [Vitamin D2] 50,000 unit PO MO 05/15/19 [History] Mometasone/Formoterol [Dulera 100-5 MCG] 2 inh INH DAILY 05/15/19 [History] Omeprazole 20 mg PO DAILY 05/15/19 [History] amLODIPine [Norvasc] 5 mg PO DAILY 05/15/19 [History] lisinopriL [Lisinopril] 40 mg PO DAILY 05/15/19 [History] Gabapentin [Neurontin] 900 mg PO TID #63 capsule 05/19/19 [Rx] Insulin Glarg,Human.Rec.Analog [Lantus] 85 unit SUBCUT BIDAC #1700 ml 05/19/19 [ Rx] glipiZIDE [Glucotrol] 5 mg PO BID #40 tablet 05/19/19 [Rx] hydroCHLOROthiazide [Hydrochlorothiazide] 12.5 mg PO BIDDIURETIC #40 cap [Rx] rOPINIRole [Requip] 1 mg PO BID #40 tablet 05/19/19 [Rx] Orphenadrine [Norflex] 1 tab PO Q12H PRN #14 tab.er 05/23/19 [Rx] Insulin Lispro [HumaLOG] 05/28/19 [History] Tiotropium [Spiriva HandiHaler] 1 inh PO DAILY 05/28/19 [History] Gabapentin [Neurontin] 600 mg PO TID #60 tab 06/28/19 [Rx] Past Medical History HEENT History: Reports: Glaucoma Cardiovascular History: Reports: High Cholesterol, Hypertension Respiratory History: Reports: COPD (suspected, not tested) Genitourinary History: Reports: Chronic Renal Insuffiency Musculoskeletal History: Reports: Gout (suspected, not tested) Neurological History: Reports: Neuropathy, Diabetic Other Neuro History: "maybe" Psychiatric History: Reports: Addiction (methamphetamine), Anxiety, Depression Endocrine/Metabolic History: Reports: Diabetes, Type II, Obesity/BMI 30+ Hematologic History: Reports: Anemia - Infectious Disease History Infectious Disease History: Reports: Hepatitis C (untreated) - Past Surgical History HEENT Surgical History: Reports: Oral Surgery (dental extractions) GI Surgical History: Reports: Cholecystectomy (early ) Musculoskeletal Surgical History: Reports: Amputation (right BKA) Social & Family History - Family History Family Medical History: Noncontributory - Caffeine Use Caffeine Use: Reports: Soda Other Caffeine Use: 3 cup/day - Living Situation & Occupation Living situation: Reports: Single, Other ([email or web address]) Occupation: Unemployed ED ROS GENERAL - Review of Systems Review Of Systems: See Below Constitutional: Reports: No Symptoms HEENT: Reports: No Symptoms Respiratory: Reports: No Symptoms Cardiovascular: Reports: No Symptoms Endocrine: Reports: No Symptoms GI/Abdominal: Reports: Abdominal Pain, Nausea, Vomiting : Reports: No Symptoms Musculoskeletal: Reports: No Symptoms ED EXAM, GI/ABD - Physical Exam Exam: See Below Exam Limited By: No Limitations General Appearance: Alert, Mild Distress Ears: Normal External Exam Nose: Normal Inspection Head: Atraumatic, Normocephalic Neck: Normal Inspection Respiratory/Chest: No Respiratory Distress, Lungs Clear, Normal Breath Sounds Cardiovascular: Regular Rate, Rhythm, No Edema, No Murmur GI/Abdominal Exam: Soft, No Organomegaly, No Mass, Tender (Generalized mild tenderness) Course - Vital Signs Last Recorded V/S: Last Vital Signs Temp 97.6 F 06/27/19 20:50 Pulse 104 H 06/27/19 20:50 Resp 22 H 06/27/19 20:50 BP 136/123 H 06/27/19 20:50 Pulse Ox 100 06/27/19 20:50 - Orders/Labs/Meds Orders: Active Orders 24 hr Category Date Time Status Bladder Scan [RC] ASDIRECTED Care 06/27/19 21:06 Active Peripheral IV Care [RC] . DIRECTED Care 06/27/19 21:06 Active UA W/MICROSCOPIC [URIN] Stat Lab 06/27/19 21:05 Ordered Sodium Chloride 0.9% [Normal Saline] 1,000 ml Med 06/27/19 21:15 Active IV ASDIRECTED Sodium Chloride 0.9% [Saline Flush] Med 06/27/19 21:05 Active 10 ml FLUSH ASDIRECTED PRN ED Antiemetic Medication Reflex [OM.PC] Stat Oth 06/27/19 21:05 Ordered Peripheral IV Insertion Adult [OM.PC] Stat Oth 06/27/19 21:05 Ordered Medication Orders Sodium Chloride (Normal Saline) 1,000 mls @ 125 mls/hr IV ASDIRECTED KENJI Last Admin: 06/27/19 22:21 Dose: 125 mls/hr Sodium Chloride (Saline Flush) 10 ml FLUSH ASDIRECTED PRN PRN Reason: Keep Vein Open Last Admin: 06/27/19 22:21 Dose: 10 ml Labs: Laboratory Tests 06/27/19 06/27/19 Range/Units 22:05 22:05 WBC 11.38 H (3.98-10.04) K/mm3 RBC 3.93 L (3.98-5.22) M/mm3 Hgb 9.8 L (11.2-15.7) gm/dl Hct 31.5 L (34.1-44.9) % MCV 80.2 (79.4-94.8) fl MCH 24.9 L (25.6-32.2) pg MCHC 31.1 L (32.2-35.5) g/dl RDW Std Deviation 50.0 H (36.4-46.3) fL Plt Count 528 H D (182-369) K/mm3 MPV 9.0 L (9.4-12.3) fl Neut % (Auto) 70.4 (34.0-71.1) % Lymph % (Auto) 18.7 L (19.3-51.7) % [place] % (Auto) 6.6 (4.7-12.5) % Eos % (Auto) 3.8 (0.7-5.8) Baso % (Auto) 0.5 (0.1-1.2) % Neut # (Auto) 8.37 H (1.56-6.13) K/mm3 Lymph # (Auto) 2.22 (1.18-3.74) K/mm3 [place] # (Auto) 0.78 H (0.24-0.36) K/mm3 Eos # (Auto) 0.45 H (0.04-0.36) K/mm3 Baso # (Auto) 0.06 (0.01-0.08) K/mm3 Manual Slide Review Abnormal smear Sodium 141 (136-145) mEq/L Potassium 4.8 (3.5-5.1) mEq/L Chloride 109 H (98-107) mEq/L Carbon Dioxide 17 L (21-32) mEq/L Anion Gap 19.8 H (5-15) BUN 33 H (7-18) mg/dL Creatinine 2.7 H (0.55-1.02) mg/dL Est Cr Clr Drug Dosing TNP Estimated GFR (MDRD) 19 (>60) mL/min BUN/Creatinine Ratio 12.2 L (14-18) Glucose 185 H (74-106) mg/dL Calcium 8.5 (8.5-10.1) mg/dL Total Bilirubin 0.4 (0.2-1.0) mg/dL AST 13 L (15-37) U/L ALT 25 (14-59) U/L Alkaline Phosphatase 114 (46-116) U/L Total Protein 7.5 (6.4-8.2) g/dl Albumin 2.9 L (3.4-5.0) g/dl Globulin 4.6 gm/dL Albumin/Globulin Ratio 0.6 L (1-2) Lipase 120 (73-393) U/L Meds: Medications Generic Name Dose Route Start Last Admin Trade Name Brennon PRN Reason Stop Dose Admin Sodium Chloride 1,000 mls @ 125 mls/hr 06/27/19 21:15 06/27/19 22:21 Normal Saline IV 125 mls/hr ASDIRECTED KENJI Administration Sodium Chloride 10 ml 06/27/19 21:05 06/27/19 22:21 Saline Flush FLUSH 10 ml ASDIRECTED PRN Administration Keep Vein Open Discontinued Medications Generic Name Dose Route Start Last Admin Trade Name Brennon PRN Reason Stop Dose Admin Hydromorphone HCl 1 mg 06/27/19 21:06 06/27/19 22:22 Dilaudid IVPUSH 06/27/19 21:07 1 mg ONETIME ONE Administration Hydromorphone HCl 0.5 mg 06/27/19 23:10 06/27/19 23:17 Dilaudid IVPUSH 06/27/19 23:11 0.5 mg ONETIME ONE Administration Sodium Chloride 1,000 mls @ 1,000 mls/hr 06/27/19 23:11 Normal Saline IV 06/28/19 00:10 ONETIME ONE Metoclopramide HCl 10 mg 06/27/19 23:20 06/27/19 23:27 Reglan IVPUSH 06/27/19 23:21 10 mg ONETIME ONE Administration Ondansetron HCl 4 mg 06/27/19 21:05 06/27/19 22:22 Zofran IVPUSH 06/27/19 21:06 4 mg ONETIME ONE Administration Ondansetron HCl 4 mg 06/27/19 22:12 06/27/19 22:22 Zofran Odt PO 06/27/19 22:13 Not Given ONETIME ONE - Re-Assessments/Exams Free Text/Narrative Re-Assessment/Exam: 06/27/19 23:19 I ordered an IV NS 1L bolus, zofran 4mg IV, dilaudid 1mg IV, labs and UA. Her WBC was slightly elevated at 11.38. Her Hgb was low at 9.8. Her platelets are elevated at 528. Her anion gap is elevated at 19.8. Her creatinine is elevated at 2.7. Her GFR is low at 19. Her glucose is elevated at 185. Her lipase is normal at 120. She had more pain and vomiting. I then ordered dilaudid and reglan. 06/28/19 00:52 She feels better. I will get her on some gabapentin. Departure - Departure Time of Disposition: 00:55 Disposition: Home, Self-Care 01 Condition: Good Clinical Impression: Peripheral neuropathic pain Anemia Qualifiers: Anemia type: other cause Other causes of anemia: other cause, not classified Qualified Code(s): D64.89 - Other specified anemias Chronic kidney disease Qualifiers: Chronic kidney disease stage: unspecified stage Qualified Code(s): N18.9 - Chronic kidney disease, unspecified - Discharge Information *PRESCRIPTION DRUG MONITORING PROGRAM REVIEWED*: No *COPY OF PRESCRIPTION DRUG MONITORING REPORT IN PATIENT ROS: No Prescriptions: Gabapentin [Neurontin] 600 mg PO TID #60 tab Referrals: PCP,None [Primary Care Provider] - Forms: ED Department Discharge Additional Instructions: Drink plenty of fluids. Take your medication as prescribed. Follow up with your doctor for more gabapentin. Please return if you are worse. Sepsis Event Note - Evaluation Sepsis Screening Result: Possible Sepsis Risk - Focused Exam Vital Signs: Vital Signs Temp Pulse Resp BP Pulse Ox 06/27/19 20:50 97.6 F 104 H 22 H 136/123 H 100 Date Exam was Performed: 06/28/19 Time Exam was Performed: 00:52 - My Orders Last 24 Hours: My Active Orders 06/27/19 21:05 UA W/MICROSCOPIC [URIN] Stat Sodium Chloride 0.9% [Saline Flush] 10 ml FLUSH ASDIRECTED PRN ED Antiemetic Medication Reflex [OM.PC] Stat Peripheral IV Insertion Adult [OM.PC] Stat 06/27/19 21:06 Bladder Scan [RC] ASDIRECTED Peripheral IV Care [RC] . DIRECTED 06/27/19 21:15 Sodium Chloride 0.9% [Normal Saline] 1,000 ml IV ASDIRECTED - Assessment/Plan Last 24 Hours: My Active Orders 06/27/19 21:05 UA W/MICROSCOPIC [URIN] Stat Sodium Chloride 0.9% [Saline Flush] 10 ml FLUSH ASDIRECTED PRN ED Antiemetic Medication Reflex [OM.PC] Stat Peripheral IV Insertion Adult [OM.PC] Stat 06/27/19 21:06 Bladder Scan [RC] ASDIRECTED Peripheral IV Care [RC] . DIRECTED 06/27/19 21:15 Sodium Chloride 0.9% [Normal Saline] 1,000 ml IV ASDIRECTED
== END 2019-06-28 01:00 | disposition home or self-care (01) ==
LOC: JD.ED 20:48
DX: E11.42 Type 2 diabetes mellitus with diabetic polyneuropathy (principal); D64.89 Other specified anemias; E11.22 Type 2 diabetes mellitus with diabetic chronic kidney disease; I12.9 Hypertensive chronic kidney disease with stage 1 through stage 4 chronic kidney disease, or unspecified chronic kidney disease; N18.9 Chronic kidney disease, unspecified; E78.00 Pure hypercholesterolemia, unspecified; F41.9 Anxiety disorder, unspecified; F32.9 Major depressive disorder, single episode, unspecified; E66.9 Obesity, unspecified; Z91.013 Allergy to seafood; Z79.899 Other long term (current) drug therapy; Z79.4 Long term (current) use of insulin
CPT/HCPCS: 36415; 51798; 80053; 83690; 85025; 96361; 96374; 96375; 99284; J1170; J2405; J2765; J7030

== ENCOUNTER 2019-06-29 23:00 | Emergency (ER) | payer MEDICAID ==
--- NOTE | 2019-06-30 01:35 | EDM.PDOC ---
ED HPI GENERAL MEDICAL PROBLEM - General Chief Complaint: Lower Extremity Injury/Pain Stated Complaint: [facility] Time Seen by Provider: 06/29/19 23:34 Source of Information: Reports: Patient History Limitations: Reports: Uncooperative (The patient would rather sleep than talk) - History of Present Illness INITIAL COMMENTS - FREE TEXT/NARRATIVE: Ms. Raymundo is a 48-year-old woman with numerous medical issues, including diabetes, peripheral neuropathy, a right BKA, chronic kidney disease, anxiety, depression, untreated hepatitis C, and methamphetamine addiction, who is currently residing at a hotel here in [place]. The triage note indicates that the patient called EMS because her entire left lower extremity hurt after she woke from sleeping all day. No history of trauma. Her Accu-Chek was 131. Now that the patient is here in the ED, she does not recall why she is here, and shook her head "no" when I asked if she had any pain, anywhere. Her BP is mildly elevated at 165/89, otherwise she is hemodynamically stable, afebrile, saturating 100% on room air. The patient does not recall the name of her [facility] PCP. Left Leg Pain Score (Numeric/FACES): 8 - Related Data Allergies Allergy/AdvReac Type Severity Reaction Status Date / Time shellfish derived Allergy Unknown Other Verified 06/29/19 23:07 Home Meds: Home Meds Albuterol [Ventolin HFA] 1 - 2 inh INH Q4HR PRN 05/15/19 [History] DULoxetine HCl [Duloxetine HCl] 80 mg PO DAILY 05/15/19 [History] Ergocalciferol (Vitamin D2) [Vitamin D2] 50,000 unit PO MO 05/15/19 [History] Mometasone/Formoterol [Dulera 100-5 MCG] 2 inh INH DAILY 05/15/19 [History] Omeprazole 20 mg PO DAILY 05/15/19 [History] amLODIPine [Norvasc] 5 mg PO DAILY 05/15/19 [History] lisinopriL [Lisinopril] 40 mg PO DAILY 05/15/19 [History] Gabapentin [Neurontin] 900 mg PO TID #63 capsule 05/19/19 [Rx] Insulin Glarg,Human.Rec.Analog [Lantus] 85 unit SUBCUT BIDAC #1700 ml 05/19/19 [ Rx] glipiZIDE [Glucotrol] 5 mg PO BID #40 tablet 05/19/19 [Rx] hydroCHLOROthiazide [Hydrochlorothiazide] 12.5 mg PO BIDDIURETIC #40 cap [Rx] rOPINIRole [Requip] 1 mg PO BID #40 tablet 05/19/19 [Rx] Orphenadrine [Norflex] 1 tab PO Q12H PRN #14 tab.er 05/23/19 [Rx] Insulin Lispro [HumaLOG] 05/28/19 [History] Tiotropium [Spiriva HandiHaler] 1 inh PO DAILY 05/28/19 [History] Gabapentin [Neurontin] 600 mg PO TID #60 tab 06/28/19 [Rx] Past Medical History HEENT History: Reports: Glaucoma Cardiovascular History: Reports: High Cholesterol, Hypertension Respiratory History: Reports: COPD (suspected, not tested) Genitourinary History: Reports: Chronic Renal Insuffiency Musculoskeletal History: Reports: Gout (suspected, not tested) Neurological History: Reports: Neuropathy, Diabetic Psychiatric History: Reports: Addiction (methamphetamine), Anxiety, Depression Endocrine/Metabolic History: Reports: Diabetes, Type II, Obesity/BMI 30+ Hematologic History: Reports: Anemia - Infectious Disease History Infectious Disease History: Reports: Hepatitis C (untreated) - Past Surgical History HEENT Surgical History: Reports: Oral Surgery (dental extractions) GI Surgical History: Reports: Cholecystectomy (early ) Musculoskeletal Surgical History: Reports: Amputation (Rt BKA) Social & Family History - Family History Family Medical History: Noncontributory - Tobacco Use Smoking Status *Q: Current Every Day Smoker Years of Tobacco use: 37 Packs/Tins Daily: 0.5 - Caffeine Use Caffeine Use: Reports: Soda Other Caffeine Use: 3 cup/day - Alcohol Use Alcohol Use History: No - Recreational Drug Use Recreational Drug Use: Yes Drug Use in Last 12 Months: Yes Recreational Drug Type: Reports: Methamphetamine (last injected 06/27/2019) - Living Situation & Occupation Living situation: Reports: Single, Other ([place] [employer]) Occupation: Unemployed Review of Systems - Review of Systems Review Of Systems: Comprehensive ROS is negative, except as noted in HPI. ED EXAM, GENERAL - Physical Exam Exam: See Below Exam Limited By: No Limitations General Appearance: WD/WN, No Apparent Distress, Other (Somnolent, but arousable ) Eye Exam: Bilateral Eye: EOMI, Normal Inspection Ears: Normal External Exam, Hearing Grossly Normal Nose: Normal Inspection Throat/Mouth: Normal Inspection, Normal Lips, Normal Voice, No Airway Compromise Head: Atraumatic, Normocephalic Neck: Normal Inspection, Full Range of Motion Respiratory/Chest: No Respiratory Distress, Lungs Clear, Normal Breath Sounds, No Accessory Muscle Use Cardiovascular: Normal Peripheral Pulses, Regular Rate, Rhythm, No Gallop, No JVD, No Murmur, No Rub Peripheral Pulses: 4+: Radial (L), Radial (R) GI/Abdominal: Normal Bowel Sounds, Soft, Non-Tender, No Organomegaly, No Distention, No Abnormal Bruit, No Mass (Female) Exam: Deferred Rectal (Female) Exam: Deferred Back Exam: Normal Inspection, Full Range of Motion, NT Extremities: No Pedal Edema, Normal Capillary Refill, Other (Right lower extremity with BKA. Stump warm and well perfused. Left lower extremity with no visible or palpable injuries, other than onychomycosis and some dried blood primarily around the great toenail. All toenails appear to have been stubbed or scraped at one time or another.) Neurological: Oriented, Normal Cognition, No Motor/Sensory Deficits Psychiatric: Normal Affect Skin Exam: Warm, Dry, Intact, Normal Color, No Rash Course - Vital Signs Last Recorded V/S: Last Vital Signs Temp 36.8 C 06/29/19 23:07 Pulse 95 06/29/19 23:07 Resp 16 06/29/19 23:07 BP 165/89 H 06/29/19 23:07 Pulse Ox 100 06/29/19 23:07 - Re-Assessments/Exams Free Text/Narrative Re-Assessment/Exam: 06/30/19 01:24 I am unable to find a medical emergency that requires treatment. She is sleeping comfortably in no distress. I will discharge her home. Departure - Departure Time of Disposition: 01:25 Disposition: Home, Self-Care 01 Condition: Good Clinical Impression: Pain of left lower extremity, Onychomycosis - Discharge Information *PRESCRIPTION DRUG MONITORING PROGRAM REVIEWED*: Not Applicable *COPY OF PRESCRIPTION DRUG MONITORING REPORT IN PATIENT ROS: Not Applicable Referrals: PCP,None [Primary Care Provider] - Forms: ED Department Discharge Additional Instructions: You were seen in the emergency room after calling an ambulance because of left lower extremity pain that developed after you woke up from a nap, without trauma. In the ER, you were unable to remember why you had called the paramedics. On physical examination, the only abnormality that was found was onychomycosis ( toenail fungus) and the appearance that you had likely stubbed one of your toes , causing some minor bleeding. We recommend that you continue to take your usual medications as prescribed. Follow-up with your PCP as needed. If any other problems, please do not hesitate to return to the ER. Sepsis Event Note - Evaluation Sepsis Screening Result: No Definite Risk - Focused Exam Vital Signs: Vital Signs Temp Pulse Resp BP Pulse Ox 06/29/19 23:07 36.8 C 95 16 165/89 H 100 Date Exam was Performed: 06/30/19 Time Exam was Performed: 01:50
== END 2019-06-30 06:09 | disposition home or self-care (01) ==
LOC: JD.ED 23:00
DX: M79.605 Pain in left leg (principal); B35.1 Tinea unguium; I12.9 Hypertensive chronic kidney disease with stage 1 through stage 4 chronic kidney disease, or unspecified chronic kidney disease; E11.22 Type 2 diabetes mellitus with diabetic chronic kidney disease; N18.9 Chronic kidney disease, unspecified; E11.42 Type 2 diabetes mellitus with diabetic polyneuropathy; F41.9 Anxiety disorder, unspecified; F32.9 Major depressive disorder, single episode, unspecified; F17.210 Nicotine dependence, cigarettes, uncomplicated; E66.9 Obesity, unspecified; Z68.35 Body mass index [BMI] 35.0-35.9, adult; Z91.013 Allergy to seafood; Z79.4 Long term (current) use of insulin; Z79.899 Other long term (current) drug therapy; Z79.51 Long term (current) use of inhaled steroids
CPT/HCPCS: 99282; 99284

== ENCOUNTER 2019-06-30 08:12 | Emergency (ER) | payer MEDICAID ==
--- NOTE | 2019-06-30 08:54 | EDM.PDOC ---
<Halley Da Silva - Last Filed: 06/30/19 08:47> ED HPI GENERAL MEDICAL PROBLEM - General Chief Complaint: Lower Extremity Injury/Pain Stated Complaint: L LEG PAIN Time Seen by Provider: 06/30/19 08:46 Source of Information: Reports: Patient History Limitations: Reports: No Limitations, Uncooperative (Would not stay awake for assessment- sleeping and snoring) - History of Present Illness INITIAL COMMENTS - FREE TEXT/NARRATIVE: Patient is a 48-year-old female with multiple chronic conditions including, diabetes, peripheral neuropathy, a right BKA, chronic kidney disease, depression , and methamphetamine addiction, presents to the ED for left foot pain. She currently resides in a hotel in [place]. She was evaluated in the ED for similar complaint last night and no acute or emergent findings were found. She was discharged and returns to the ED for continuing pain. Patient was sleeping when I entered the room for my exam and continued to sleep and snore for most of the history and exam. Had to shake her awake for every question. She stated she has left foot pain that started this morning but did not answer on how severe the pain is. She did not wake up with manipulation of the foot or ankle. Dried blood was noted around the toes and on the top of the foot. All toenails on the left foot appear to be infected by a fungus. Peripheral pulses in the left lower extremity were strong. No edema noted to the extremity. Patient did wince a little with palpation on the sides of her left knee, but quickly went back to sleep. She appears to be comfortable and in no immediate or emergent distress. Left Lower Foot Pain Score (Numeric/FACES): 8 - Related Data Allergies Allergy/AdvReac Type Severity Reaction Status Date / Time shellfish derived Allergy Unknown Other Verified 06/30/19 08:32 Home Meds: Home Meds Albuterol [Ventolin HFA] 1 - 2 inh INH Q4HR PRN 05/15/19 [History] DULoxetine HCl [Duloxetine HCl] 80 mg PO DAILY 05/15/19 [History] Ergocalciferol (Vitamin D2) [Vitamin D2] 50,000 unit PO MO 05/15/19 [History] Mometasone/Formoterol [Dulera 100-5 MCG] 2 inh INH DAILY 05/15/19 [History] Omeprazole 20 mg PO DAILY 05/15/19 [History] amLODIPine [Norvasc] 5 mg PO DAILY 05/15/19 [History] lisinopriL [Lisinopril] 40 mg PO DAILY 05/15/19 [History] Gabapentin [Neurontin] 900 mg PO TID #63 capsule 05/19/19 [Rx] Insulin Glarg,Human.Rec.Analog [Lantus] 85 unit SUBCUT BIDAC #1700 ml 05/19/19 [ Rx] glipiZIDE [Glucotrol] 5 mg PO BID #40 tablet 05/19/19 [Rx] hydroCHLOROthiazide [Hydrochlorothiazide] 12.5 mg PO BIDDIURETIC #40 cap [Rx] rOPINIRole [Requip] 1 mg PO BID #40 tablet 05/19/19 [Rx] Orphenadrine [Norflex] 1 tab PO Q12H PRN #14 tab.er 05/23/19 [Rx] Insulin Lispro [HumaLOG] 05/28/19 [History] Tiotropium [Spiriva HandiHaler] 1 inh PO DAILY 05/28/19 [History] Gabapentin [Neurontin] 600 mg PO TID #60 tab 06/28/19 [Rx] Past Medical History HEENT History: Reports: Glaucoma Cardiovascular History: Reports: High Cholesterol, Hypertension Respiratory History: Reports: COPD Genitourinary History: Reports: Chronic Renal Insuffiency Musculoskeletal History: Reports: Gout Neurological History: Reports: Neuropathy, Diabetic Other Neuro History: "maybe" Psychiatric History: Reports: Addiction, Anxiety, Depression Endocrine/Metabolic History: Reports: Diabetes, Type II, Obesity/BMI 30+ Hematologic History: Reports: Anemia - Infectious Disease History Infectious Disease History: Reports: Hepatitis C - Past Surgical History HEENT Surgical History: Reports: Oral Surgery GI Surgical History: Reports: Cholecystectomy Musculoskeletal Surgical History: Reports: Amputation Social & Family History - Family History Family Medical History: Noncontributory - Tobacco Use Smoking Status *Q: Current Every Day Smoker Years of Tobacco use: 35 Packs/Tins Daily: 0.2 - Caffeine Use Caffeine Use: Reports: Coffee, Energy Drinks, Soda Other Caffeine Use: 3 cup/day - Recreational Drug Use Recreational Drug Use: Yes Recreational Drug Type: Reports: Methamphetamine Other Recreational Drug Type: inject - Living Situation & Occupation Living situation: Reports: Single, Other ([employer]) Occupation: Unemployed Review of Systems - Review of Systems Review Of Systems: See Below Constitutional: Reports: No Symptoms Respiratory: Reports: No Symptoms. Denies: Shortness of Breath Cardiovascular: Reports: No Symptoms. Denies: Chest Pain GI/Abdominal: Reports: No Symptoms. Denies: Abdominal Pain, Diarrhea Musculoskeletal: Reports: Foot Pain (left - started this morning). Denies: Neck Pain, Back Pain Skin: Reports: No Symptoms. Denies: Pallor, Rash, Erythema Neurological: Reports: No Symptoms. Denies: Dizziness, Headache Psychiatric: Reports: No Symptoms ED EXAM, GENERAL - Physical Exam Exam: See Below Exam Limited By: Other (sleeping through most of exam) General Appearance: WD/WN, No Apparent Distress Respiratory/Chest: No Respiratory Distress, Lungs Clear, Normal Breath Sounds, No Accessory Muscle Use, Chest Non-Tender Cardiovascular: Normal Peripheral Pulses, Regular Rate, Rhythm, No Edema, No Murmur, No Rub Peripheral Pulses: 2+: Radial (R), Popliteal (L), Posterior Tibial (L), Dorsalis Pedis (L) GI/Abdominal: Normal Bowel Sounds, Soft, Non-Tender, No Organomegaly, No Distention, No Mass Extremities: Normal Range of Motion, Non-Tender, No Pedal Edema, Other (Right BKA- Stump warm and well perfused. Left lower extremity has no visible or palpable injuries. Onychomycosis of left toenails and dried blood noted around toes. No pain with manipulation of left foot and ankle. Winced with palpation on lateral side of left knee, but fell right back to sleep) Neurological: Alert, Oriented, Normal Cognition, No Motor/Sensory Deficits Psychiatric: Normal Affect, Normal Mood Skin Exam: Warm, Dry, Normal Color, No Rash Course - Vital Signs Last Recorded V/S: Last Vital Signs Temp 98.1 F 06/30/19 08:28 Pulse 90 06/30/19 08:28 Resp 16 06/30/19 08:28 BP 174/84 H 06/30/19 08:28 Pulse Ox 97 06/30/19 08:28 Departure - Departure Disposition: Home, Self-Care 01 Clinical Impression: Left foot pain - Discharge Information Referrals: PCP,None [Primary Care Provider] - Forms: ED Department Discharge Additional Instructions: Take your medication as prescribed. Follow up with your provider. Sepsis Event Note - Evaluation Sepsis Screening Result: No Definite Risk - Focused Exam Vital Signs: Vital Signs Temp Pulse Resp BP Pulse Ox 06/30/19 08:28 98.1 F 90 16 174/84 H 97 Date Exam was Performed: 06/30/19 Time Exam was Performed: 08:47 <Shar Burnette - Last Filed: 06/30/19 09:01> Course - Re-Assessments/Exams Free Text/Narrative Re-Assessment/Exam: 06/30/19 08:59 I examined the patient myself and I agree with Halley's assessment and plan. The patient does not have any medical emergency at this time. No further work up is needed. Departure - Departure Time of Disposition: 09:00 Condition: Good - Discharge Information *PRESCRIPTION DRUG MONITORING PROGRAM REVIEWED*: Not Applicable *COPY OF PRESCRIPTION DRUG MONITORING REPORT IN PATIENT ROS: Not Applicable Sepsis Event Note - Focused Exam Date Exam was Performed: 06/30/19 Time Exam was Performed: 08:59
== END 2019-06-30 09:25 | disposition home or self-care (01) ==
LOC: JD.ED 08:12
DX: M79.672 Pain in left foot (principal); B35.1 Tinea unguium; E11.42 Type 2 diabetes mellitus with diabetic polyneuropathy; I12.9 Hypertensive chronic kidney disease with stage 1 through stage 4 chronic kidney disease, or unspecified chronic kidney disease; E11.22 Type 2 diabetes mellitus with diabetic chronic kidney disease; N18.9 Chronic kidney disease, unspecified; J44.9 Chronic obstructive pulmonary disease, unspecified; F41.9 Anxiety disorder, unspecified; F32.9 Major depressive disorder, single episode, unspecified; F17.210 Nicotine dependence, cigarettes, uncomplicated; E66.9 Obesity, unspecified; Z68.35 Body mass index [BMI] 35.0-35.9, adult; Z91.013 Allergy to seafood; Z79.4 Long term (current) use of insulin; Z79.899 Other long term (current) drug therapy
CPT/HCPCS: 99283

== ENCOUNTER 2019-07-17 10:16 | Emergency (ER) | payer MEDICAID ==
--- NOTE | 2019-07-17 13:21 | EDM.PDOCBH ---
ED HPI GENERAL MEDICAL PROBLEM - General Chief Complaint: Behavioral/Psych Stated Complaint: delusional Time Seen by Provider: 07/17/19 10:41 Source of Information: Reports: Patient, Other (Justin with [employer]) History Limitations: Reports: No Limitations - History of Present Illness INITIAL COMMENTS - FREE TEXT/NARRATIVE: The patient presents with Justin from [facility] for hallucinations. The patient has been seeing people in her house and was going to file a restraining order against them but they are not there. She also says someone is taking the screens off of her windows. She has been out of her neurontin. She does admit to taking meth. She has no fever, chills, cough, shortness of breath, abdominal pain, nausea or vomiting. Onset: Gradual Duration: Day(s): Severity: Moderate Improves with: Reports: None Worsens with: Reports: None Associated Symptoms: Reports: No Other Symptoms Left Arm Pain Score (Numeric/FACES): 7 - Related Data Allergies Allergy/AdvReac Type Severity Reaction Status Date / Time shellfish derived Allergy Unknown Other Verified 07/17/19 10:44 Home Meds: Home Meds Albuterol [Ventolin HFA] 1 - 2 inh INH Q4HR PRN 05/15/19 [History] DULoxetine HCl [Duloxetine HCl] 60 mg PO DAILY 05/15/19 [History] Mometasone/Formoterol [Dulera 100-5 MCG] 2 inh INH DAILY 05/15/19 [History] Omeprazole 20 mg PO DAILY 05/15/19 [History] lisinopriL [Lisinopril] 40 mg PO DAILY 05/15/19 [History] Gabapentin [Neurontin] 900 mg PO TID #63 capsule 05/19/19 [Rx] Insulin Glarg,Human.Rec.Analog [Lantus] 85 unit SUBCUT BIDAC #1700 ml 05/19/19 [ Rx] rOPINIRole [Requip] 1 mg PO BID #40 tablet 05/19/19 [Rx] Insulin Lispro [HumaLOG] 05/28/19 [History] Gabapentin [Neurontin] 600 mg PO TID #60 tab 06/28/19 [Rx] amLODIPine Besylate [Amlodipine Besylate] 10 mg PO DAILY 07/17/19 [History] Past Medical History HEENT History: Reports: Glaucoma Cardiovascular History: Reports: High Cholesterol, Hypertension Respiratory History: Reports: COPD Genitourinary History: Reports: Chronic Renal Insuffiency, Other (See Below) Other Genitourinary History: decreased kidney function - at 25% as of 07/17/19 Musculoskeletal History: Reports: Gout Neurological History: Reports: Neuropathy, Diabetic Other Neuro History: "maybe" Psychiatric History: Reports: Addiction, Anxiety, Depression Endocrine/Metabolic History: Reports: Diabetes, Type II, Obesity/BMI 30+ Hematologic History: Reports: Anemia - Infectious Disease History Infectious Disease History: Reports: Hepatitis C - Past Surgical History HEENT Surgical History: Reports: Oral Surgery GI Surgical History: Reports: Cholecystectomy Musculoskeletal Surgical History: Reports: Amputation Social & Family History - Family History Family Medical History: Noncontributory - Tobacco Use Smoking Status *Q: Current Every Day Smoker Years of Tobacco use: 30 Packs/Tins Daily: 0.5 - Caffeine Use Caffeine Use: Reports: Coffee, Soda Other Caffeine Use: 3 cup/day - Recreational Drug Use Recreational Drug Use: Yes Recreational Drug Type: Reports: Methamphetamine - Living Situation & Occupation Living situation: Reports: Single, Other ([employer]) Occupation: Unemployed ED ROS GENERAL - Review of Systems Review Of Systems: See Below Constitutional: Reports: No Symptoms HEENT: Reports: No Symptoms Respiratory: Reports: No Symptoms Cardiovascular: Reports: No Symptoms Endocrine: Reports: No Symptoms GI/Abdominal: Reports: No Symptoms : Reports: No Symptoms Musculoskeletal: Reports: No Symptoms ED EXAM, BEHAVIORAL HEALTH - Physical Exam Exam: See Below Exam Limited By: No Limitations General Appearance: Alert, No Apparent Distress Ears: Normal External Exam Nose: Normal Inspection Head: Atraumatic, Normocephalic Neck: Normal Inspection Respiratory/Chest: No Respiratory Distress, Lungs Clear, Normal Breath Sounds Cardiovascular: Regular Rate, Rhythm, No Edema, No Murmur GI/Abdominal: Soft, Non-Tender, No Organomegaly, No Mass Back Exam: Normal Inspection COURSE, BEHAVIORAL HEALTH COMP - Course Vital Signs: Last Vital Signs Temp 98.2 F 07/17/19 10:36 Pulse 92 07/17/19 10:36 Resp 16 07/17/19 10:36 BP 109/69 07/17/19 10:36 Pulse Ox 100 07/17/19 10:36 Orders, Labs, Meds: Active Orders 24 hr Category Date Time Status Accu Check [Blood Glucose Check, Bedside] [RC] ONETIME Care 07/17/19 11:36 Active Cardiac Monitoring [RC] . DIRECTED Care 07/17/19 10:51 Active Laboratory Tests 07/17/19 07/17/19 07/17/19 Range/Units 11:11 11:11 11:43 WBC (3.98-10.04) K/mm3 RBC (3.98-5.22) M/mm3 Hgb (11.2-15.7) gm/dl Hct (34.1-44.9) % MCV (79.4-94.8) fl MCH (25.6-32.2) pg MCHC (32.2-35.5) g/dl RDW Std Deviation (36.4-46.3) fL Plt Count (182-369) K/mm3 MPV (9.4-12.3) fl Neut % (Auto) (34.0-71.1) % Lymph % (Auto) (19.3-51.7) % [place] % (Auto) (4.7-12.5) % Eos % (Auto) (0.7-5.8) Baso % (Auto) (0.1-1.2) % Neut # (Auto) (1.56-6.13) K/mm3 Lymph # (Auto) (1.18-3.74) K/mm3 [place] # (Auto) (0.24-0.36) K/mm3 Eos # (Auto) (0.04-0.36) K/mm3 Baso # (Auto) (0.01-0.08) K/mm3 Manual Slide Review Sodium (136-145) mEq/L Potassium (3.5-5.1) mEq/L Chloride (98-107) mEq/L Carbon Dioxide (21-32) mEq/L Anion Gap (5-15) BUN (7-18) mg/dL Creatinine (0.55-1.02) mg/dL Est Cr Clr Drug Dosing mL/min Estimated GFR (MDRD) (>60) mL/min BUN/Creatinine Ratio (14-18) Glucose (74-106) mg/dL POC Glucose 212 H (70-105) mg/dL Calcium (8.5-10.1) mg/dL Total Bilirubin (0.2-1.0) mg/dL AST (15-37) U/L ALT (14-59) U/L Alkaline Phosphatase (46-116) U/L Total Protein (6.4-8.2) g/dl Albumin (3.4-5.0) g/dl Globulin gm/dL Albumin/Globulin Ratio (1-2) TSH 3rd Generation (0.358-3.74) uIU/mL Urine Color Yellow (Yellow) Urine Appearance Clear (Clear) Urine pH 7.5 (5.0-8.0) Ur Specific [place] 1.025 (1.005-1.030) Urine Protein 3+ H (Negative) Urine Glucose (UA) Trace H (Negative) Urine Ketones Negative (Negative) Urine Occult Blood Negative (Negative) Urine Nitrite Negative (Negative) Urine Bilirubin Negative (Negative) Urine Urobilinogen 0.2 (0.2-1.0) Ur Leukocyte Esterase Negative (Negative) Urine RBC 0-5 (0-5) /hpf Urine WBC 20-30 H (0-5) /hpf Ur Squamous Epith Cells 30-40 H (0-5) /hpf Urine Bacteria Few (FEW) /hpf Urine Mucus Not seen (FEW) /hpf Urine Opiates Screen Negative (KJXSUF=385) Ur Buprenorphine Scrn Negative (CUTOFF=10) Ur Oxycodone Screen Negative (PWS6AC=905) Urine Methadone Screen Negative (SOAYBZ=682) Ur Propoxyphene Screen Negative (DKGMJW=624) Ur Barbiturates Screen Negative (HYFQMJ=318) Ur Tricyclics Screen Negative (PAYBRJ=888) Ur Phencyclidine Scrn Negative (CUTOFF=25) Ur Amphetamine Screen Presumptive positive H (VUUFQD=485) U Methamphetamines Scrn Presumptive positive H (FEWGGG=180) U Benzodiazepines Scrn Negative (QCCJPT=743) U Cocaine Metab Screen Negative (WBENYB=045) U Marijuana (THC) Screen Negative (CUTOFF=50) Ethyl Alcohol (0.00) gm% 07/17/19 07/17/19 Range/Units 11:45 11:45 WBC 11.40 H (3.98-10.04) K/mm3 RBC 4.13 (3.98-5.22) M/mm3 Hgb 9.9 L (11.2-15.7) gm/dl Hct 33.0 L (34.1-44.9) % MCV 79.9 (79.4-94.8) fl MCH 24.0 L (25.6-32.2) pg MCHC 30.0 L (32.2-35.5) g/dl RDW Std Deviation 49.3 H (36.4-46.3) fL Plt Count 409 H D (182-369) K/mm3 MPV 9.4 (9.4-12.3) fl Neut % (Auto) 68.2 (34.0-71.1) % Lymph % (Auto) 21.9 (19.3-51.7) % [place] % (Auto) 5.4 (4.7-12.5) % Eos % (Auto) 3.5 (0.7-5.8) Baso % (Auto) 0.8 (0.1-1.2) % Neut # (Auto) 7.78 H (1.56-6.13) K/mm3 Lymph # (Auto) 2.50 (1.18-3.74) K/mm3 [place] # (Auto) 0.61 H (0.24-0.36) K/mm3 Eos # (Auto) 0.40 H (0.04-0.36) K/mm3 Baso # (Auto) 0.09 H (0.01-0.08) K/mm3 Manual Slide Review Abnormal smear Sodium 138 (136-145) mEq/L Potassium 4.9 (3.5-5.1) mEq/L Chloride 107 (98-107) mEq/L Carbon Dioxide 19 L (21-32) mEq/L Anion Gap 16.9 H (5-15) BUN 49 H (7-18) mg/dL Creatinine 2.7 H (0.55-1.02) mg/dL Est Cr Clr Drug Dosing 25.15 mL/min Estimated GFR (MDRD) 19 (>60) mL/min BUN/Creatinine Ratio 18.1 H (14-18) Glucose 217 H (74-106) mg/dL POC Glucose (70-105) mg/dL Calcium 8.4 L (8.5-10.1) mg/dL Total Bilirubin 0.4 (0.2-1.0) mg/dL AST 14 L (15-37) U/L ALT 28 (14-59) U/L Alkaline Phosphatase 160 H (46-116) U/L Total Protein 7.6 (6.4-8.2) g/dl Albumin 3.0 L (3.4-5.0) g/dl Globulin 4.6 gm/dL Albumin/Globulin Ratio 0.7 L (1-2) TSH 3rd Generation 2.392 (0.358-3.74) uIU/mL Urine Color (Yellow) Urine Appearance (Clear) Urine pH (5.0-8.0) Ur Specific [place] (1.005-1.030) Urine Protein (Negative) Urine Glucose (UA) (Negative) Urine Ketones (Negative) Urine Occult Blood (Negative) Urine Nitrite (Negative) Urine Bilirubin (Negative) Urine Urobilinogen (0.2-1.0) Ur Leukocyte Esterase (Negative) Urine RBC (0-5) /hpf Urine WBC (0-5) /hpf Ur Squamous Epith Cells (0-5) /hpf Urine Bacteria (FEW) /hpf Urine Mucus (FEW) /hpf Urine Opiates Screen (ERVQTP=138) Ur Buprenorphine Scrn (CUTOFF=10) Ur Oxycodone Screen (VPH8GC=148) Urine Methadone Screen (VBXCWV=688) Ur Propoxyphene Screen (ACWKAN=345) Ur Barbiturates Screen (ZFIREL=247) Ur Tricyclics Screen (EYIBYF=415) Ur Phencyclidine Scrn (CUTOFF=25) Ur Amphetamine Screen (LFTNSJ=386) U Methamphetamines Scrn (DDUWBF=266) U Benzodiazepines Scrn (BUFIYN=694) U Cocaine Metab Screen (NASJAO=148) U Marijuana (THC) Screen (CUTOFF=50) Ethyl Alcohol 0.00 (0.00) gm% Re-Assessment/Re-Exam: I ordered an accu check that showed her blood glucose is 212. Her WBC was elevated at 11.4. Her anion gap was elevated at 16.9. Her creatinine was elevated at 2.7. Her glucose is 217. Her TSH is normal. Her UA shows no UTI. Her UDS is positive for meth and amphetamines. This is the cause of her symptoms. She needs to stop taking meth. Departure - Departure Time of Disposition: 13:35 Disposition: Home, Self-Care 01 Condition: Good Clinical Impression: Drug abuse, Methamphetamine abuse - Discharge Information *PRESCRIPTION DRUG MONITORING PROGRAM REVIEWED*: Not Applicable *COPY OF PRESCRIPTION DRUG MONITORING REPORT IN PATIENT ROS: Not Applicable Referrals: Kurtis Logan MD [Primary Care Provider] - Forms: ED Department Discharge Additional Instructions: Stop using meth. It is causing you to have hallucinations and be paranoid. Talk with [facility] to see if they can help with you getting off of the meth. Sepsis Event Note - Evaluation Sepsis Screening Result: No Definite Risk - Focused Exam Vital Signs: Vital Signs Temp Pulse Resp BP Pulse Ox 07/17/19 10:36 98.2 F 92 16 109/69 100 Date Exam was Performed: 07/17/19 Time Exam was Performed: 13:26 - My Orders Last 24 Hours: My Active Orders 07/17/19 10:51 Cardiac Monitoring [RC] . DIRECTED 07/17/19 11:36 Accu Check [Blood Glucose Check, Bedside] [RC] ONETIME - Assessment/Plan Last 24 Hours: My Active Orders 07/17/19 10:51 Cardiac Monitoring [RC] . DIRECTED 07/17/19 11:36 Accu Check [Blood Glucose Check, Bedside] [RC] ONETIME
== END 2019-07-17 14:13 | disposition home or self-care (01) ==
LOC: JD.ED 10:16
DX: F15.10 Other stimulant abuse, uncomplicated (principal); F19.10 Other psychoactive substance abuse, uncomplicated; F17.210 Nicotine dependence, cigarettes, uncomplicated; I10 Essential (primary) hypertension; J44.9 Chronic obstructive pulmonary disease, unspecified; F41.9 Anxiety disorder, unspecified; F32.9 Major depressive disorder, single episode, unspecified; I12.9 Hypertensive chronic kidney disease with stage 1 through stage 4 chronic kidney disease, or unspecified chronic kidney disease; N18.9 Chronic kidney disease, unspecified; E11.40 Type 2 diabetes mellitus with diabetic neuropathy, unspecified; Z68.35 Body mass index [BMI] 35.0-35.9, adult; E66.9 Obesity, unspecified; Z79.4 Long term (current) use of insulin; Z79.899 Other long term (current) drug therapy; Z91.013 Allergy to seafood
CPT/HCPCS: 36415; 80053; 80306; 80307; 81001; 82962; 84443; 85025; 99283; 99284

== ENCOUNTER 2019-07-17 16:54 | Emergency (ER) | payer MEDICAID | END 2019-07-17 20:30 | disposition left against medical advice (07) | LOC: JD.ED 16:54 | DX: Z53.21 Procedure and treatment not carried out due to patient leaving prior to being seen by health care provider (principal) ==

== ENCOUNTER 2019-08-03 01:32 | Emergency (ER) | payer MEDICAID ==
[2019-08-03] MEDS ORDERED: LORazepam 2 MG/ML SDV IVPUSH ONE (01:35)
[2019-08-03] MEDS ORDERED: Haloperidol Lactate 5 MG/ML SDV IVPUSH ONE (01:36)
[2019-08-03] MEDS ORDERED: diphenhydrAMINE 50 MG/ML SDV IVPUSH ONE (01:36)
--- NOTE | 2019-08-03 01:39 | EDM.PDOCBH ---
ED HPI GENERAL MEDICAL PROBLEM - General Chief Complaint: Behavioral/Psych Stated Complaint: [facility] Time Seen by Provider: 08/03/19 01:34 Source of Information: Reports: Patient, EMS, Police History Limitations: Reports: Altered Mental Status (Admits to using methamphetamines lately and is suffering psychotic thought processes i.e. paranoid ideation with people looking into her windows. Laser beams are bouncing of her forehead etc.) - History of Present Illness INITIAL COMMENTS - FREE TEXT/NARRATIVE: 49-year-old female brought to the ED by [place] [facility]. Apparently police went to a disturbance somewhere here in [place] where this lady lives. Apparently they have been to her home many times in the last month or so. I know I have seen her at least once in the past. She admits to using methamphetamines on a fairly regular basis. This time she states she last used 4 days ago. She becomes psychotic when she uses methamphetamines and exhibits paranoid ideation and states that people are trying to break into her home etc. Is also an insulin-dependent diabetic. Has been followed up with [facility] on multiple occasions. She states she took her sugar before bed it was 240 and she did have something to eat. Has any nausea vomiting. Denies cough or fever or chills. 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 Leg was removed because of diabetic ulceration of the foot. He states that she smokes the methamphetamines. She denies any recent alcohol use. Onset: Unknown/Unsure (Patient has presented to the ED on multiple occasions with similar symptoms due to methamphetamine use. It is felt that her psychotic breaks are secondary to methamphetamine use.) Duration: Waxing/Waning Location: Reports: Other (She reports that she is restless and agitated and unable to sleep.) Severity: Severe Improves with: Reports: None Context: Reports: Other (Methamphetamine abuse episodic). Denies: Activity, Exercise, Lifting, Sick Contact, Trauma Associated Symptoms: Reports: Confusion, Weakness. 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: Reports: Other (see below) (Unknown.) Bilateral Leg Pain Score (Numeric/FACES): 8 - Related Data Allergies Allergy/AdvReac Type Severity Reaction Status Date / Time shellfish derived Allergy Unknown Other Verified 08/04/19 17:04 Home Meds: Home Meds Albuterol [Ventolin HFA] 1 - 2 inh INH Q4HR PRN 05/15/19 [History] DULoxetine HCl [Duloxetine HCl] 60 mg PO DAILY 05/15/19 [History] Mometasone/Formoterol [Dulera 100-5 MCG] 2 inh INH DAILY 05/15/19 [History] Omeprazole 20 mg PO DAILY 05/15/19 [History] lisinopriL [Lisinopril] 40 mg PO DAILY 05/15/19 [History] Insulin Glarg,Human.Rec.Analog [Lantus] 85 unit SUBCUT BIDAC #1700 ml 05/19/19 [ Rx] rOPINIRole [Requip] 1 mg PO BID #40 tablet 05/19/19 [Rx] Insulin Lispro [HumaLOG] 0 unit SQ TID 05/28/19 [History] Gabapentin [Neurontin] 600 mg PO TID #60 tab 06/28/19 [Rx] amLODIPine Besylate [Amlodipine Besylate] 10 mg PO DAILY 07/17/19 [History] Past Medical History HEENT History: Reports: Glaucoma Cardiovascular History: Reports: High Cholesterol, Hypertension Respiratory History: Reports: COPD Genitourinary History: Reports: Chronic Renal Insuffiency, Other (See Below) Other Genitourinary History: decreased kidney function - at 25% as of 07/17/19 Musculoskeletal History: Reports: Gout Neurological History: Reports: Neuropathy, Diabetic Other Neuro History: "maybe" Psychiatric History: Reports: Addiction, Anxiety, Depression Endocrine/Metabolic History: Reports: Diabetes, Type II, Obesity/BMI 30+ Hematologic History: Reports: Anemia - Infectious Disease History Infectious Disease History: Reports: Hepatitis C - Past Surgical History HEENT Surgical History: Reports: Oral Surgery GI Surgical History: Reports: Cholecystectomy Musculoskeletal Surgical History: Reports: Amputation Social & Family History - Family History Family Medical History: Noncontributory - Caffeine Use Caffeine Use: Reports: Coffee, Soda Other Caffeine Use: 3 cup/day - Living Situation & Occupation Living situation: Reports: Single, Other ([employer]) Occupation: Unemployed ED ROS GENERAL - Review of Systems Review Of Systems: See Below Constitutional: Reports: Malaise, Fatigue, Decreased Appetite. Denies: Fever, Chills HEENT: Reports: No Symptoms, Other (Has poor vision due to diabetic retinopathy) Respiratory: Denies: Shortness of Breath, Wheezing, Pleuritic Chest Pain, Cough Cardiovascular: Reports: Blood Pressure Problem, Dyspnea on Exertion ( Chronically). Denies: Claudication, Lightheadedness, Orthopnea Endocrine: Reports: Fatigue, High Glucose (He runs greater than 200) GI/Abdominal: Reports: Constipation (Occasional problems with constipation). Denies: Abdominal Pain, Anorexia, Black Stool, Bloody Stool, Difficulty Swallowing : Reports: Frequency, Incontinence (Stress-induced) Musculoskeletal: Reports: Back Pain, Joint Pain (Phantom leg pain below her knee right side. Diabetic neuropathy left lower extremity. Usually is on Neurontin for this but cannot afford it.) Skin: Reports: No Symptoms Neurological: Reports: Confusion, Other (Only delusional with psychotic break with paranoid ideation.) Psychiatric: Reports: Hallucinations, Other (At amphetamine use episodic). Denies: Suicidal Ideation (0.) Hematologic/Lymphatic: Reports: Anemia Immunologic: Reports: No Symptoms ED EXAM, BEHAVIORAL HEALTH - Physical Exam Exam: See Below Exam Limited By: Altered Mental Status (I could not smell any alcohol on her breath.) General Appearance: Alert, Moderate Distress (Anxious and some mildly agitated.) Eye Exam: Bilateral Eye: Normal Inspection Throat/Mouth: Other (Cough is dry as are her lips cracked and dry.) Head: Atraumatic, Normocephalic Neck: Normal Inspection, Supple, Non-Tender, Full Range of Motion. No: Lymphadenopathy (L), Lymphadenopathy (R) Respiratory/Chest: No Respiratory Distress, Lungs Clear, Normal Breath Sounds, No Accessory Muscle Use, Chest Non-Tender Cardiovascular: Normal Peripheral Pulses, Regular Rate, Rhythm, No Edema, No Gallop, No Murmur, No Rub GI/Abdominal: Normal Bowel Sounds, Soft, Non-Tender, No Organomegaly, No Mass, Pelvis Stable, Other (Moderate obesity.) Back Exam: Normal Inspection, Full Range of Motion, Other (No evidence of falls or abrasions or contusions.). No: CVA Tenderness (L), CVA Tenderness (R) Extremities: Other (Patient has a below-knee right-sided amputation and the wound is healed fairly well. No open wound. She does not apparently wear a prosthesis. She has decreased circulation to the left lower extremity i.e. peripheral vascular disease without any gangrene or ulcerations.) Neurological: Disoriented to Place, Disoriented to Time, Inattentive. No: Normal Mood/Affect, Normal Cognition, Normal Gait, Oriented x 3 Psychiatric: Alert, Flight of Ideas, Visual Hallucinations, Paranoid Thoughts. No: Normal Affect, Normal Cognition, Normal Mood, Oriented Skin Exam: Warm, Dry, Intact, Normal color, No rash EKG INTERPRETATION EKG Date: 08/03/19 Time: 02:07 Rhythm: NSR Rate (Beats/Min): 90 [place]: Normal P-Wave: Present QRS: Other (The R wave transition consider right ventricular hypertrophy versus septal hypertrophy pattern. Mildly decreased voltage in the limb leads otherwise normal ECG) ST-T: Normal QT: Normal EKG Interpretation Comments: Borderline ECG COURSE, BEHAVIORAL HEALTH COMP - Course Vital Signs: Last Vital Signs Temp 98.7 F 08/03/19 01:33 Pulse 95 08/03/19 01:33 Resp 16 08/03/19 01:33 BP 126/77 08/03/19 01:33 Pulse Ox 100 08/03/19 01:33 Orders, Labs, Meds: Laboratory Tests 08/03/19 08/03/19 08/03/19 Range/Units 02:05 02:05 02:05 WBC 10.24 H (3.98-10.04) K/mm3 RBC 3.58 L (3.98-5.22) M/mm3 Hgb 8.8 L (11.2-15.7) gm/dl Hct 29.0 L (34.1-44.9) % MCV 81.0 (79.4-94.8) fl MCH 24.6 L (25.6-32.2) pg MCHC 30.3 L (32.2-35.5) g/dl RDW Std Deviation 50.8 H (36.4-46.3) fL Plt Count 410 H (182-369) K/mm3 MPV 9.2 L (9.4-12.3) fl Neut % (Auto) 63.3 (34.0-71.1) % Lymph % (Auto) 24.9 (19.3-51.7) % [place] % (Auto) 6.1 (4.7-12.5) % Eos % (Auto) 4.8 (0.7-5.8) Baso % (Auto) 0.7 (0.1-1.2) % Neut # (Auto) 6.49 H (1.56-6.13) K/mm3 Lymph # (Auto) 2.55 (1.18-3.74) K/mm3 [place] # (Auto) 0.62 H (0.24-0.36) K/mm3 Eos # (Auto) 0.49 H (0.04-0.36) K/mm3 Baso # (Auto) 0.07 (0.01-0.08) K/mm3 Manual Slide Review Abnormal smear ESR (0-20) mm/hr Sodium 142 (136-145) mEq/L Potassium 4.4 (3.5-5.1) mEq/L Chloride 110 H (98-107) mEq/L Carbon Dioxide 18 L (21-32) mEq/L Anion Gap 18.4 H (5-15) BUN 37 H (7-18) mg/dL Creatinine 2.1 H (0.55-1.02) mg/dL Est Cr Clr Drug Dosing 31.97 mL/min Estimated GFR (MDRD) 25 (>60) mL/min BUN/Creatinine Ratio 17.6 (14-18) Glucose 155 H (74-106) mg/dL POC Glucose (70-105) mg/dL Hemoglobin A1c (4.50-6.20) % Lactic Acid 0.8 (0.4-2.0) mmol/L Calcium 7.6 L (8.5-10.1) mg/dL Magnesium 1.7 L (1.8-2.4) mg/dl Total Bilirubin 0.2 (0.2-1.0) mg/dL AST 9 L (15-37) U/L ALT 39 (14-59) U/L Alkaline Phosphatase 123 H (46-116) U/L Troponin I < 0.017 (0.00-0.056) ng/mL NT-Pro-B Natriuret Pep (0-125) pg/mL Total Protein 6.4 (6.4-8.2) g/dl Albumin 2.4 L (3.4-5.0) g/dl Globulin 4.0 gm/dL Albumin/Globulin Ratio 0.6 L (1-2) Salicylates (2.8-20) mg/dL Acetaminophen 0 L (10-30) ug/mL Ethyl Alcohol 0.00 (0.00) gm% 08/03/19 08/03/19 08/03/19 Range/Units 02:05 02:05 02:05 WBC (3.98-10.04) K/mm3 RBC (3.98-5.22) M/mm3 Hgb (11.2-15.7) gm/dl Hct (34.1-44.9) % MCV (79.4-94.8) fl MCH (25.6-32.2) pg MCHC (32.2-35.5) g/dl RDW Std Deviation (36.4-46.3) fL Plt Count (182-369) K/mm3 MPV (9.4-12.3) fl Neut % (Auto) (34.0-71.1) % Lymph % (Auto) (19.3-51.7) % [place] % (Auto) (4.7-12.5) % Eos % (Auto) (0.7-5.8) Baso % (Auto) (0.1-1.2) % Neut # (Auto) (1.56-6.13) K/mm3 Lymph # (Auto) (1.18-3.74) K/mm3 [place] # (Auto) (0.24-0.36) K/mm3 Eos # (Auto) (0.04-0.36) K/mm3 Baso # (Auto) (0.01-0.08) K/mm3 Manual Slide Review ESR 85 H (0-20) mm/hr Sodium (136-145) mEq/L Potassium (3.5-5.1) mEq/L Chloride (98-107) mEq/L Carbon Dioxide (21-32) mEq/L Anion Gap (5-15) BUN (7-18) mg/dL Creatinine (0.55-1.02) mg/dL Est Cr Clr Drug Dosing mL/min Estimated GFR (MDRD) (>60) mL/min BUN/Creatinine Ratio (14-18) Glucose (74-106) mg/dL POC Glucose (70-105) mg/dL Hemoglobin A1c 9.10 H (4.50-6.20) % Lactic Acid (0.4-2.0) mmol/L Calcium (8.5-10.1) mg/dL Magnesium (1.8-2.4) mg/dl Total Bilirubin (0.2-1.0) mg/dL AST (15-37) U/L ALT (14-59) U/L Alkaline Phosphatase (46-116) U/L Troponin I (0.00-0.056) ng/mL NT-Pro-B Natriuret Pep 739 H (0-125) pg/mL Total Protein (6.4-8.2) g/dl Albumin (3.4-5.0) g/dl Globulin gm/dL Albumin/Globulin Ratio (1-2) Salicylates (2.8-20) mg/dL Acetaminophen (10-30) ug/mL Ethyl Alcohol (0.00) gm% 08/03/19 08/03/19 Range/Units 02:05 12:32 WBC (3.98-10.04) K/mm3 RBC (3.98-5.22) M/mm3 Hgb (11.2-15.7) gm/dl Hct (34.1-44.9) % MCV (79.4-94.8) fl MCH (25.6-32.2) pg MCHC (32.2-35.5) g/dl RDW Std Deviation (36.4-46.3) fL Plt Count (182-369) K/mm3 MPV (9.4-12.3) fl Neut % (Auto) (34.0-71.1) % Lymph % (Auto) (19.3-51.7) % [place] % (Auto) (4.7-12.5) % Eos % (Auto) (0.7-5.8) Baso % (Auto) (0.1-1.2) % Neut # (Auto) (1.56-6.13) K/mm3 Lymph # (Auto) (1.18-3.74) K/mm3 [place] # (Auto) (0.24-0.36) K/mm3 Eos # (Auto) (0.04-0.36) K/mm3 Baso # (Auto) (0.01-0.08) K/mm3 Manual Slide Review ESR (0-20) mm/hr Sodium (136-145) mEq/L Potassium (3.5-5.1) mEq/L Chloride (98-107) mEq/L Carbon Dioxide (21-32) mEq/L Anion Gap (5-15) BUN (7-18) mg/dL Creatinine (0.55-1.02) mg/dL Est Cr Clr Drug Dosing mL/min Estimated GFR (MDRD) (>60) mL/min BUN/Creatinine Ratio (14-18) Glucose (74-106) mg/dL POC Glucose 123 H (70-105) mg/dL Hemoglobin A1c (4.50-6.20) % Lactic Acid (0.4-2.0) mmol/L Calcium (8.5-10.1) mg/dL Magnesium (1.8-2.4) mg/dl Total Bilirubin (0.2-1.0) mg/dL AST (15-37) U/L ALT (14-59) U/L Alkaline Phosphatase (46-116) U/L Troponin I (0.00-0.056) ng/mL NT-Pro-B Natriuret Pep (0-125) pg/mL Total Protein (6.4-8.2) g/dl Albumin (3.4-5.0) g/dl Globulin gm/dL Albumin/Globulin Ratio (1-2) Salicylates 2.7 L (2.8-20) mg/dL Acetaminophen (10-30) ug/mL Ethyl Alcohol (0.00) gm% Medications Discontinued Medications Generic Name Dose Route Start Last Admin Trade Name Freq PRN Reason Stop Dose Admin Diphenhydramine HCl 25 mg 08/03/19 01:36 08/03/19 02:06 Benadryl IVPUSH 08/03/19 01:37 25 mg ONETIME ONE Administration Haloperidol Lactate 5 mg 08/03/19 01:36 08/03/19 02:08 Haldol IVPUSH 08/03/19 01:37 5 mg ONETIME ONE Administration Sodium Chloride 1,000 mls @ 150 mls/hr 08/03/19 01:45 08/03/19 02:05 Normal Saline IV 150 mls/hr ASDIRECTED KENJI Administration Lorazepam 2 mg 08/03/19 01:35 08/03/19 02:09 Ativan IVPUSH 08/03/19 01:36 2 mg ONETIME ONE Administration Re-Assessment/Re-Exam: 49-year-old female of [place] originally from [facility] and dropped off here in [place] by bus about 6 weeks ago. She essentially is homeless. She admits to using methamphetamines episodically when they become available to her and this precipitated psychotic breaks and paranoid ideation. Such is the case upon arrival in the ED tonight. Police were on scene and apparently have been there a good deal over the last several weeks. Unclear where she is being housed at this point time. She is insulin- dependent diabetic and uses insulin with meals and twice daily. Last blood sugar the tonight she reports was 240. Is and she is complaining of laser beams are bouncing off her forehead and people are trying to break through her windows into her house. Plan IV normal saline 150 mils per hour. Routine labs. Urine cath will be obtained for drug screen. Blood alcohol level salicylate level and acetaminophen levels as well. Given Haldol 5 mg IV with 2 mg of Ativan IV and Benadryl 5 mg IV to prevent any dystonic reactions. Re-Assessment/Re-Exam Date: 08/03/19 (02:54:Labs reveal a white count of 10.24 with 63.3% neutrophils by auto differential and 25% lymphocytes. Hemoglobin is low at 8.8 with hematocrit of 29.0. MCV is 81. Platelet count 410,000 mildly elevated. Sed rate is 85 the slide does not reveal any bands cells. Does show 1+ anisocytosis and 1+ hypochromasia. Sodium 142 with a potassium of 4.4. Chloride 110 with a bicarb of 18 anion gap is elevated at 18.4. BUN was 37 with a creatinine of 2.1. Glucose 155 hemoglobin A1c is elevated at 9.10 indicating very poor control of her diabetes. Lactic acid is 0.8 calcium 7.6 magnesium 1.7 slightly low liver function normal troponin I was less than 0.017 BNP mildly elevated at 739 total protein 6.4 with an albumin fraction of 2.4. Salicylates were 2.7 low acetaminophen was 0 blood alcohol was 0.00) Re-Assessment/Re-Exam Time: 04:26 (Remains asleep with stable vital signs. BP is 132/62 O2 sats 98% on room air with a heart rate of 78/min. She has not yet voided and therefore a urine drug screen has not been obtained) Medical Clearance: 08/03/19 06:03 signs remained stable. BP is 123/60. Heart rate is 76 and sinus O2 sats 97% on room air. Will be discharged when she wakes up. Blood sugar checked when she Departure - Departure Time of Disposition: 07:30 Disposition: Home, Self-Care 01 Condition: Fair Clinical Impression: Hallucinations, Methamphetamine abuse, episodic, Poorly controlled diabetes mellitus, Methamphetamine abuse, Drug abuse - Discharge Information *PRESCRIPTION DRUG MONITORING PROGRAM REVIEWED*: Not Applicable *COPY OF PRESCRIPTION DRUG MONITORING REPORT IN PATIENT ROS: Not Applicable Instructions: Psychosis, Stimulant Use Disorder-Methamphetamines Referrals: PCP,None [Primary Care Provider] - Forms: ED Department Discharge Additional Instructions: Evaluation in the emergency room the overnight due to visual hallucinations precipitated by methamphetamine use over the last several days. You are also found to be mildly volume depleted and this was corrected with intravenous fluids. Your blood sugars were found to be poorly controlled with glycosylated protein of 9.1. Your kidney function is down to grade 4 renal insufficiency. Much further and you will require dialysis for kidneys. You should follow-up with in home sales representative when able. [place] are precipitated by methamphetamine use. Sepsis Event Note - Focused Exam Date Exam was Performed: 08/03/19 Time Exam was Performed: 06:03
[2019-08-03] MEDS ORDERED: Sodium Chloride 0.9% 1,000 ML IV SCH (01:45)
[2019-08-03 02:25] LABS: HEMOGLOBIN A1C 9.1 % (4.50-6.20)
[2019-08-03 02:41] LABS: ACETAMINOPHEN 0 ug/mL (10-30)
== END 2019-08-03 12:35 | disposition home or self-care (01) ==
LOC: JD.ED 01:32
DX: F15.10 Other stimulant abuse, uncomplicated (principal); R44.1 Visual hallucinations; E11.40 Type 2 diabetes mellitus with diabetic neuropathy, unspecified; E11.22 Type 2 diabetes mellitus with diabetic chronic kidney disease; I12.9 Hypertensive chronic kidney disease with stage 1 through stage 4 chronic kidney disease, or unspecified chronic kidney disease; N18.9 Chronic kidney disease, unspecified; F41.9 Anxiety disorder, unspecified; E78.00 Pure hypercholesterolemia, unspecified; F32.9 Major depressive disorder, single episode, unspecified; E66.01 Morbid (severe) obesity due to excess calories; Z68.35 Body mass index [BMI] 35.0-35.9, adult; Z79.4 Long term (current) use of insulin; Z79.899 Other long term (current) drug therapy; Z91.013 Allergy to seafood
CPT/HCPCS: 36415; 80053; 80307; 82962; 83036; 83605; 83735; 83880; 84484; 85025; 85652; 93005; 96361; 96374; 96375; 99285; J1200; J1630; J2060; J7030

== ENCOUNTER 2019-08-04 16:55 | Emergency (ER) | payer MEDICAID ==
[2019-08-04] MEDS ORDERED: Gabapentin 600 MG Tab PO ONE (17:22)
--- NOTE | 2019-08-04 17:35 | EDM.PDOCBH ---
ED HPI GENERAL MEDICAL PROBLEM - General Chief Complaint: Behavioral/Psych Stated Complaint: SUICIDAL IDEATIONS Time Seen by Provider: 08/04/19 17:03 Source of Information: Reports: Patient, Old Records, RN Notes Reviewed, Other ( director enterprise systems, Alex Mcrae) History Limitations: Reports: Uncooperative - History of Present Illness INITIAL COMMENTS - FREE TEXT/NARRATIVE: Patient is a 49-year-old female who presents to the ED today for the evaluation of her suicidal ideations. Patient is well-known to this ER, and her most recent visit was Saturday night that extended into yesterday morning. The patient has a history of methamphetamine use, and has psychoses/hallucinations while using methamphetamines. The patient states that she has not used this in a few days however. The patient's watch case polisher, Alex Mcrae states that the patient tells him that people are coming into her house and shooting her legs with lasers. She tells me that over the last few weeks, there are young people coming into her apartment, and groups of more than 2 every night, better drinking in her apartment. She states she causes the police, and then they take off. Patient states that she wants to get out of the apartment and has been having thoughts of suicide in order to do as such. She does not relate any actual plan but states multiple times that she would kill herself to get herself out of the apartment. Patient's director enterprise systems notes that after her discharge yesterday, she slept all day and into this morning. Patient notes that she has been depressed for around 3 months, and states she has had 4 suicide attempts in the past. Bilateral Leg Pain Score (Numeric/FACES): 8 - Related Data Allergies Allergy/AdvReac Type Severity Reaction Status Date / Time shellfish derived Allergy Unknown Other Verified 08/04/19 17:04 Home Meds: Home Meds Albuterol [Ventolin HFA] 1 - 2 inh INH Q4HR PRN 05/15/19 [History] DULoxetine HCl [Duloxetine HCl] 60 mg PO DAILY 05/15/19 [History] Mometasone/Formoterol [Dulera 100-5 MCG] 2 inh INH DAILY 05/15/19 [History] Omeprazole 20 mg PO DAILY 05/15/19 [History] lisinopriL [Lisinopril] 40 mg PO DAILY 05/15/19 [History] Insulin Glarg,Human.Rec.Analog [Lantus] 85 unit SUBCUT BIDAC #1700 ml 05/19/19 [ Rx] rOPINIRole [Requip] 1 mg PO BID #40 tablet 05/19/19 [Rx] Insulin Lispro [HumaLOG] 0 unit SQ TID 05/28/19 [History] Gabapentin [Neurontin] 600 mg PO TID #60 tab 06/28/19 [Rx] amLODIPine Besylate [Amlodipine Besylate] 10 mg PO DAILY 07/17/19 [History] Past Medical History HEENT History: Reports: Glaucoma Cardiovascular History: Reports: High Cholesterol, Hypertension Respiratory History: Reports: COPD Genitourinary History: Reports: Chronic Renal Insuffiency, Other (See Below) Other Genitourinary History: decreased kidney function - at 25% as of 07/17/19 Musculoskeletal History: Reports: Gout Neurological History: Reports: Neuropathy, Diabetic Psychiatric History: Reports: Addiction, Anxiety, Depression, Psychosis, Suicide Attempt, Suicidal Ideation Endocrine/Metabolic History: Reports: Diabetes, Type II, Obesity/BMI 30+ Hematologic History: Reports: Anemia - Infectious Disease History Infectious Disease History: Reports: Hepatitis C, MRSA - Past Surgical History HEENT Surgical History: Reports: Oral Surgery GI Surgical History: Reports: Cholecystectomy Musculoskeletal Surgical History: Reports: Amputation (right BKA) Social & Family History - Family History Family Medical History: Noncontributory - Tobacco Use Smoking Status *Q: Current Every Day Smoker Years of Tobacco use: 35 Packs/Tins Daily: 0.5 - Caffeine Use Caffeine Use: Reports: Coffee, Soda, Tea Other Caffeine Use: 3 cup/day - Recreational Drug Use Recreational Drug Use: Yes Recreational Drug Type: Reports: Methamphetamine Recreational Drug Use Frequency: Weekly - Living Situation & Occupation Living situation: Reports: Single, Other ([employer]) Occupation: Unemployed ED ROS GENERAL - Review of Systems Review Of Systems: Comprehensive ROS is negative, except as noted in HPI. ED EXAM, BEHAVIORAL HEALTH - Physical Exam Exam: See Below Exam Limited By: No Limitations General Appearance: Alert, WD/WN, No Apparent Distress Eye Exam: Bilateral Eye: EOMI, Normal Inspection, PERRL Ears: Normal External Exam Nose: Normal Inspection Throat/Mouth: Normal Inspection, Normal Lips, Normal Teeth, Normal Gums, Normal Oropharynx, Normal Voice, No Airway Compromise Head: Atraumatic, Normocephalic Neck: Normal Inspection Respiratory/Chest: No Respiratory Distress, Lungs Clear, Normal Breath Sounds, No Accessory Muscle Use, Chest Non-Tender Cardiovascular: Normal Peripheral Pulses, Regular Rate, Rhythm, No Murmur GI/Abdominal: Normal Bowel Sounds, Soft, Non-Tender, No Distention, No Mass Extremities: Normal Inspection, Normal Capillary Refill Neurological: Alert, No Motor/Sensory Deficits Psychiatric: Alert, Flat Affect, Agitated (pt became agitated when I was interviewing her, she was not re-directable and refused to talk with me until she got her dose of Gabepentin), Non-Communicative (pt told me that she wanted to hurt herself, but did not relay a plan, then would not talk with me until she got her gabapentin), Uncooperative, Suicidal Thoughts, Visual Hallucinations , Paranoid Thoughts. No: Homicidal Thoughts, Threatening Behavior Skin Exam: Warm, Dry, Intact, Normal color, No rash COURSE, BEHAVIORAL HEALTH COMP - Course Vital Signs: Last Vital Signs Temp 97.7 F 08/04/19 17:01 Pulse 86 08/04/19 17:01 Resp 19 08/04/19 17:01 BP 172/83 H 08/04/19 17:01 Pulse Ox 98 08/04/19 17:01 Orders, Labs, Meds: Active Orders 24 hr Category Date Time Status DRUG SCREEN, URINE [URCHEM] Stat Lab 08/04/19 17:30 Ordered Insulin Regular, Human [HumuLIN R] Med 08/05/19 19:01 Once 8 unit SUBCUT ONETIME ONE Medication Orders Insulin Human Regular (Humulin R) 8 unit SUBCUT ONETIME ONE Stop: 08/05/19 19:02 Laboratory Tests 08/04/19 08/04/19 08/04/19 Range/Units 17:42 17:42 17:42 WBC 10.28 H (3.98-10.04) K/mm3 RBC 4.02 (3.98-5.22) M/mm3 Hgb 9.8 L (11.2-15.7) gm/dl Hct 32.4 L (34.1-44.9) % MCV 80.6 (79.4-94.8) fl MCH 24.4 L (25.6-32.2) pg MCHC 30.2 L (32.2-35.5) g/dl RDW Std Deviation 50.9 H (36.4-46.3) fL Plt Count 487 H D (182-369) K/mm3 MPV 9.1 L (9.4-12.3) fl Neutrophils % (Manual) 66 H (40-60) % Band Neutrophils % 0 (0-10) % Lymphocytes % (Manual) 23 (20-40) % Atypical Lymphs % 0 % Monocytes % (Manual) 5 (2-10) % Eosinophils % (Manual) 6 H (0.7-5.8) % Basophils % (Manual) 0 L (0.1-1.2) Platelet Estimate Adequate Poikilocytosis 1+ slight Anisocytosis 1+ slight Ovalocytes 1+ slight RBC Morph Comment Not Reportable Sodium 140 (136-145) mEq/L Potassium 4.4 (3.5-5.1) mEq/L Chloride 110 H (98-107) mEq/L Carbon Dioxide 20 L (21-32) mEq/L Anion Gap 14.4 (5-15) BUN 30 H (7-18) mg/dL Creatinine 1.9 H (0.55-1.02) mg/dL Est Cr Clr Drug Dosing 35.34 mL/min Estimated GFR (MDRD) 28 (>60) mL/min BUN/Creatinine Ratio 15.8 (14-18) Glucose 303 H (74-106) mg/dL Calcium 7.8 L (8.5-10.1) mg/dL Total Bilirubin 0.2 (0.2-1.0) mg/dL AST 10 L (15-37) U/L ALT 20 (14-59) U/L Alkaline Phosphatase 128 H (46-116) U/L Total Protein 6.5 (6.4-8.2) g/dl Albumin 2.5 L (3.4-5.0) g/dl Globulin 4.0 gm/dL Albumin/Globulin Ratio 0.6 L (1-2) TSH 3rd Generation 2.419 (0.358-3.74) uIU/mL Salicylates 2.3 L (2.8-20) mg/dL Acetaminophen 0 L (10-30) ug/mL Ethyl Alcohol 0.00 (0.00) gm% Medications Generic Name Dose Route Start Last Admin Trade Name Freq PRN Reason Stop Dose Admin Insulin Human Regular 8 unit 08/05/19 19:01 Humulin R SUBCUT 08/05/19 19:02 ONETIME ONE Discontinued Medications Generic Name Dose Route Start Last Admin Trade Name Brennon PRN Reason Stop Dose Admin Gabapentin 600 mg 08/04/19 17:22 08/04/19 17:28 Neurontin PO 08/04/19 17:23 600 mg DAILY ONE Administration Insulin Human Regular 8 unit 08/04/19 18:43 08/04/19 19:10 Humulin R IV 08/04/19 18:44 Not Given ONETIME ONE Discharge vs Psych Eval/Treatment:: 08/04/19 17:37 ED patient presents to the ED for the evaluation of her suicidal ideations, and other psychoses. I do believe the patient would be a candidate for inpatient psychiatric admission at this time, have ordered some labs to medically clear her. Patient did have an EKG done here yesterday, so I will not repeat that. We will get other lab work, and work on placement for her. Review of old records demonstrate that please officers have been to this patient's place multiple times, and there has been no one in her apartment, she is having active visual hallucinations. Most likely due to meth use, nonetheless I do believe she needs further psychiatric care. I did order 600mg Gabapentin, as she had not taken her afternoon dose yet today. 08/04/19 18:47 Laboratory evaluation is back and there is not much change from yesterday's visit. Her blood sugar is elevated at 303, I did order 8u regular insulin after consultation with Dr. Atkins. I am in contact with [facility] in [place] for possible transfer at this time. The patient has not/will not provide us with a urine sample, but does admit to methamphetamine use within the last week. 08/04/19 19:18 Dr. Cartagena, contact lens fitter psychiatrist at [facility] does accept the patient in transfer at this time for acute psychosis and suicidal ideation. Departure - Departure Time of Disposition: 19:06 Disposition: DC/Tfer to Psych Hosp/Unit 65 Condition: Fair Clinical Impression: Suicidal thoughts, Acute psychosis - Discharge Information *PRESCRIPTION DRUG MONITORING PROGRAM REVIEWED*: No *COPY OF PRESCRIPTION DRUG MONITORING REPORT IN PATIENT ROS: No Referrals: Kurtis Logan MD [Primary Care Provider] - Forms: ED Department Discharge Sepsis Event Note - Evaluation Sepsis Screening Result: No Definite Risk - Focused Exam Vital Signs: Vital Signs Temp Pulse Resp BP Pulse Ox 08/04/19 17:01 97.7 F 86 19 172/83 H 98 Date Exam was Performed: 08/04/19 Time Exam was Performed: 19:18 - My Orders Last 24 Hours: My Active Orders 08/04/19 17:30 DRUG SCREEN, URINE [URCHEM] Stat 08/05/19 19:01 Insulin Regular, Human [HumuLIN R] 8 unit SUBCUT ONETIME ONE - Assessment/Plan Last 24 Hours: My Active Orders 08/04/19 17:30 DRUG SCREEN, URINE [URCHEM] Stat 08/05/19 19:01 Insulin Regular, Human [HumuLIN R] 8 unit SUBCUT ONETIME ONE
[2019-08-04] MEDS ORDERED: Insulin Regular, Human 100 Units/ML 3 ML Vial IV ONE (18:43)
[2019-08-04] MEDS ORDERED: Haloperidol Lactate 5 MG/ML SDV IM ONE (20:05)
[2019-08-05] MEDS ORDERED: Insulin Regular, Human 100 Units/ML 3 ML Vial SUBCUT ONE (19:01)
== END 2019-08-04 20:30 ==
LOC: JD.ED 16:55
DX: F23 Brief psychotic disorder (principal); E78.00 Pure hypercholesterolemia, unspecified; J44.9 Chronic obstructive pulmonary disease, unspecified; I12.9 Hypertensive chronic kidney disease with stage 1 through stage 4 chronic kidney disease, or unspecified chronic kidney disease; N18.9 Chronic kidney disease, unspecified; E11.22 Type 2 diabetes mellitus with diabetic chronic kidney disease; E66.9 Obesity, unspecified; F41.9 Anxiety disorder, unspecified; F32.9 Major depressive disorder, single episode, unspecified; F17.210 Nicotine dependence, cigarettes, uncomplicated; Z91.013 Allergy to seafood; Z79.899 Other long term (current) drug therapy; Z79.4 Long term (current) use of insulin
CPT/HCPCS: 36415; 80053; 80307; 84443; 85007; 85027; 99285; A9270; J1815

== ENCOUNTER 2019-08-16 10:30 | Emergency (ER) | payer MEDICAID ==
[2019-08-16] MEDS ORDERED: Ketorolac 60 MG/2 ML SDV IM ONE (11:33)
--- NOTE | 2019-08-16 11:36 | EDM.PDOC ---
ED HPI GENERAL MEDICAL PROBLEM - General Chief Complaint: Upper Extremity Injury/Pain Stated Complaint: SHOULDER PAIN Time Seen by Provider: 08/16/19 11:08 Source of Information: Reports: Patient History Limitations: Reports: No Limitations - History of Present Illness INITIAL COMMENTS - FREE TEXT/NARRATIVE: Patient is a 49-year-old female who presents with complaints of pain to her right shoulder. Patient states the pain started last night there was no known injury to the shoulder. She does use a wheelchair for mobility and states that the repetitive motion of using a wheelchair is aggravated her shoulder. She does have a history of osteoarthritis to bilateral shoulders. She has gotten steroid injections in the past, but was told that she cannot receive those anymore. She has been using Tylenol and ibuprofen for the pain. Her last dose was around 7:00 this morning. - Related Data Allergies Allergy/AdvReac Type Severity Reaction Status Date / Time shellfish derived Allergy Unknown Other Verified 08/04/19 17:04 Home Meds: Home Meds Albuterol [Ventolin HFA] 1 - 2 inh INH Q4HR PRN 05/15/19 [History] DULoxetine HCl [Duloxetine HCl] 60 mg PO DAILY 05/15/19 [History] Mometasone/Formoterol [Dulera 100-5 MCG] 2 inh INH DAILY 05/15/19 [History] Omeprazole 20 mg PO DAILY 05/15/19 [History] lisinopriL [Lisinopril] 40 mg PO DAILY 05/15/19 [History] Insulin Glarg,Human.Rec.Analog [Lantus] 85 unit SUBCUT BIDAC #1700 ml 05/19/19 [ Rx] rOPINIRole [Requip] 1 mg PO BID #40 tablet 05/19/19 [Rx] Insulin Lispro [HumaLOG] 0 unit SQ TID 05/28/19 [History] Gabapentin [Neurontin] 600 mg PO TID #60 tab 06/28/19 [Rx] amLODIPine Besylate [Amlodipine Besylate] 10 mg PO DAILY 07/17/19 [History] Acetaminophen/HYDROcodone [[place] 325-5 MG] 1 tab PO Q4H PRN #10 tablet 08/16/19 [Rx] Past Medical History HEENT History: Reports: Glaucoma Cardiovascular History: Reports: High Cholesterol, Hypertension Respiratory History: Reports: COPD Genitourinary History: Reports: Chronic Renal Insuffiency, Other (See Below) Other Genitourinary History: decreased kidney function - at 25% as of 07/17/19 Musculoskeletal History: Reports: Gout Neurological History: Reports: Neuropathy, Diabetic Other Neuro History: "maybe" Psychiatric History: Reports: Addiction, Anxiety, Depression, Psychosis, Suicide Attempt, Suicidal Ideation Endocrine/Metabolic History: Reports: Diabetes, Type II, Obesity/BMI 30+ Hematologic History: Reports: Anemia - Infectious Disease History Infectious Disease History: Reports: Hepatitis C, MRSA - Past Surgical History HEENT Surgical History: Reports: Oral Surgery GI Surgical History: Reports: Cholecystectomy Musculoskeletal Surgical History: Reports: Amputation (right BKA) Social & Family History - Family History Family Medical History: Noncontributory - Caffeine Use Caffeine Use: Reports: Coffee, Soda, Tea Other Caffeine Use: 3 cup/day - Living Situation & Occupation Living situation: Reports: Single, Other ([employer]) Occupation: Unemployed Review of Systems - Review of Systems Review Of Systems: Comprehensive ROS is negative, except as noted in HPI. ED EXAM, GENERAL - Physical Exam Exam: See Below Exam Limited By: No Limitations General Appearance: Alert, WD/WN, No Apparent Distress Respiratory/Chest: No Respiratory Distress, Lungs Clear, Normal Breath Sounds, No Accessory Muscle Use, Chest Non-Tender Cardiovascular: Normal Peripheral Pulses, Regular Rate, Rhythm, No Edema, No Gallop, No JVD, No Murmur, No Rub Extremities: Other (Tenderness to palpation of the right shoulder. Pain is worse in the anterior portion of the shoulder. She does have some tenderness over the trapezius muscle.). No: Joint Swelling Neurological: Alert, Oriented, CN II-XII Intact, Normal Cognition, Normal Gait, Normal Reflexes, No Motor/Sensory Deficits Psychiatric: Normal Affect, Normal Mood Skin Exam: Warm, Dry, Intact, Normal Color, No Rash Course - Vital Signs Last Recorded V/S: Last Vital Signs Temp 97.1 F 08/16/19 10:44 Pulse 87 08/16/19 10:44 Resp 20 08/16/19 10:44 BP 130/65 08/16/19 10:44 Pulse Ox 97 08/16/19 10:44 - Orders/Labs/Meds Orders: Active Orders 24 hr Category Date Time Status Shoulder Comp Rt [CR] Stat Exams 04/05/20 11:33 Ordered Meds: Medications Discontinued Medications Generic Name Dose Route Start Last Admin Trade Name Brennon PRN Reason Stop Dose Admin Ketorolac Tromethamine 30 mg 08/16/19 11:33 08/16/19 11:44 Toradol IM 08/16/19 11:34 30 mg ONETIME ONE Administration - Re-Assessments/Exams Free Text/Narrative Re-Assessment/Exam: 08/16/19 11:35 Discussed with patient that the cause of her pain is likely due to her osteoarthritis and repetitive motion from using a wheelchair. We will do an x- ray. I will give her a shot of Toradol while in the ER. 08/16/19 12:21 X-ray of the right shoulder was normal. She has a follow-up appointment scheduled with her primary care provider, Dr. Logan, on Saturday. I will give her 10 [place] to get her through to that appointment. Discharge instructions as documented. Departure - Departure Time of Disposition: 12:22 Disposition: Home, Self-Care 01 Condition: Fair Clinical Impression: Shoulder pain, right Qualifiers: Chronicity: acute Qualified Code(s): M25.511 - Pain in right shoulder - Discharge Information *PRESCRIPTION DRUG MONITORING PROGRAM REVIEWED*: Yes *COPY OF PRESCRIPTION DRUG MONITORING REPORT IN PATIENT ROS: No Prescriptions: Acetaminophen/HYDROcodone [[place] 325-5 MG] 1 tab PO Q4H PRN #10 tablet PRN Reason: Pain Instructions: Shoulder Pain Referrals: Kurtis Logan MD [Primary Care Provider] - Forms: ED Department Discharge Additional Instructions: You were seen in the emergency department today for right shoulder pain. X- rays were done and showed no acute abnormalities. Recommend that you continue to use [id number] Tylenol and ibuprofen as needed for pain. For pain not relieved by these measures, [facility] [place] [facility]. Do not drive for at least 12 hours after taking this medication. Also recommend that you intermittently apply heat to the shoulder as this may be helpful. Keep your appointment with Dr. Logan on Saturday as currently scheduled. Return to ER as needed. Sepsis Event Note - Evaluation Sepsis Screening Result: No Definite Risk - Focused Exam Vital Signs: Vital Signs Temp Pulse Resp BP Pulse Ox 08/16/19 10:44 97.1 F 87 20 130/65 97 Date Exam was Performed: 08/16/19 Time Exam was Performed: 12:21 - My Orders Last 24 Hours: My Active Orders 08/16/19 11:33 Shoulder Comp Rt [CR] Stat - Assessment/Plan Last 24 Hours: My Active Orders 08/16/19 11:33 Shoulder Comp Rt [CR] Stat
--- NOTE | 2019-08-16 12:29 | CR ---
Right shoulder: 4 views of the right shoulder were obtained. Comparison: No prior right shoulder imaging. Glenohumeral joint appears within normal limits. Mild joint space narrowing and mild inferior spurring is seen within the acromioclavicular joint. No acute fracture or other bony abnormality is appreciated. Impression: 1. Mild degenerative change within the acromioclavicular joint as noted above. 2. Right shoulder study is otherwise unremarkable. Diagnostic code #2 Study was dictated in MDT
== END 2019-08-16 12:37 | disposition home or self-care (01) ==
LOC: JD.ED 10:30
DX: M25.511 Pain in right shoulder (principal); I12.9 Hypertensive chronic kidney disease with stage 1 through stage 4 chronic kidney disease, or unspecified chronic kidney disease; E11.22 Type 2 diabetes mellitus with diabetic chronic kidney disease; N18.9 Chronic kidney disease, unspecified; E78.00 Pure hypercholesterolemia, unspecified; J44.9 Chronic obstructive pulmonary disease, unspecified; M10.9 Gout, unspecified; E11.40 Type 2 diabetes mellitus with diabetic neuropathy, unspecified; F41.9 Anxiety disorder, unspecified; F32.9 Major depressive disorder, single episode, unspecified; E66.9 Obesity, unspecified; Z91.013 Allergy to seafood; Z79.899 Other long term (current) drug therapy; Z79.4 Long term (current) use of insulin
CPT/HCPCS: 73030; 96372; 99283; J1885

== ENCOUNTER 2019-08-21 17:42 | Emergency (ER) | payer MEDICAID ==
[2019-08-21] MEDS ORDERED: Orphenadrine 100 MG Tab.ER PO ONE (18:43)
[2019-08-21] MEDS ORDERED: Albuterol 0.083% 2.5 MG/3 ML Neb Soln NEB ONE (18:43)
[2019-08-21] MEDS ORDERED: Ketorolac 60 MG/2 ML SDV IM ONE (18:43)
--- NOTE | 2019-08-21 18:50 | EDM.PDOC ---
ED HPI GENERAL MEDICAL PROBLEM - General Chief Complaint: Genitourinary Problem Stated Complaint: FLANK PAIN Time Seen by Provider: 08/21/19 18:16 Source of Information: Reports: Patient, RN Notes Reviewed History Limitations: Reports: No Limitations - History of Present Illness INITIAL COMMENTS - FREE TEXT/NARRATIVE: Patient is a 49-year-old female who presents to the ED for low back pain. Patient notes that this started at noon today. She notes this to be in her right lower back, and it does not radiate anywhere. The patient denies any sort of nausea vomiting or other urinary states that she has kidney failure but is not on dialysis. She states she is just having what she believes is some musculoskeletal pain if she states that any movement seems to make the pain worse, and when she lays on it she feels as if she is laying on a tennis ball. Patient states that she took 2 tablets of Tylenol, along with her gabapentin this morning, and this did not seem to provide a lot of relief. Patient had been given a few tablets of hydrocodone for her shoulder pain, and states that her last use of this was yesterday. Patient is denying any other sick-like symptoms, fever/chills, cough/shortness of breath, chest pain, nausea/vomiting/ diarrhea. Patient notes that her appointment with her primary care provider, Dr. Logan was canceled this week due to the coronavirus. Patient states that she is having some wheezing, and would like a nebulizer treatment as well, she did not take her inhaler prior to coming to the ER. Left Buttock Pain Score (Numeric/FACES): 8 - Related Data Allergies Allergy/AdvReac Type Severity Reaction Status Date / Time shellfish derived Allergy Unknown Other Verified 08/21/19 18:14 Home Meds: Home Meds Albuterol [Ventolin HFA] 1 - 2 inh INH Q4HR PRN 05/15/19 [History] DULoxetine HCl [Duloxetine HCl] 60 mg PO DAILY 05/15/19 [History] Mometasone/Formoterol [Dulera 100-5 MCG] 2 inh INH DAILY 05/15/19 [History] Omeprazole 20 mg PO DAILY 05/15/19 [History] lisinopriL [Lisinopril] 40 mg PO DAILY 05/15/19 [History] Insulin Glarg,Human.Rec.Analog [Lantus] 85 unit SUBCUT BIDAC #1700 ml 05/19/19 [ Rx] rOPINIRole [Requip] 1 mg PO BID #40 tablet 05/19/19 [Rx] Insulin Lispro [HumaLOG] 0 unit SQ TID 05/28/19 [History] Gabapentin [Neurontin] 600 mg PO TID #60 tab 06/28/19 [Rx] amLODIPine Besylate [Amlodipine Besylate] 10 mg PO DAILY 07/17/19 [History] Orphenadrine [Norflex] 100 mg PO BID PRN #20 tab 08/21/19 [Rx] Past Medical History HEENT History: Reports: Glaucoma Cardiovascular History: Reports: High Cholesterol, Hypertension Respiratory History: Reports: Asthma, COPD Genitourinary History: Reports: Chronic Renal Insuffiency, Other (See Below) Other Genitourinary History: decreased kidney function - at 25% as of 07/17/19 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: Musculoskeletal History: Reports: Gout Neurological History: Reports: Neuropathy, Diabetic Other Neuro History: "maybe" Psychiatric History: Reports: Addiction, Anxiety, Depression, Psychosis, Suicide Attempt, Suicidal Ideation Endocrine/Metabolic History: Reports: Diabetes, Type II, Obesity/BMI 30+ Hematologic History: Reports: Anemia Immunologic History: Reports: None Oncologic (Cancer) History: Reports: None Dermatologic History: Reports: None - Infectious Disease History Infectious Disease History: Reports: Hepatitis C, MRSA - Past Surgical History HEENT Surgical History: Reports: Oral Surgery GI Surgical History: Reports: Cholecystectomy Female Surgical History: Reports: Section Musculoskeletal Surgical History: Reports: Amputation Social & Family History - Family History Family Medical History: Noncontributory - Tobacco Use Smoking Status *Q: Current Every Day Smoker Years of Tobacco use: 35 Packs/Tins Daily: 0.5 - Caffeine Use Caffeine Use: Reports: Coffee, Soda, Tea Other Caffeine Use: 3 cup/day - Recreational Drug Use Recreational Drug Use: Yes Recreational Drug Type: Reports: Methamphetamine Recreational Drug Use Frequency: Monthly - Living Situation & Occupation Living situation: Reports: Single, Other ([employer]) Occupation: Unemployed ED ROS GENERAL - Review of Systems Review Of Systems: Comprehensive ROS is negative, except as noted in HPI. ED EXAM,LOWER BACK PAIN/INJURY - Physical Exam Exam: See Below Exam Limited By: No Limitations General Appearance: Alert, WD/WN, No Apparent Distress Eye Exam: Bilateral Eye: EOMI, Normal Inspection, PERRL Ears: Normal External Exam Throat/Mouth: Normal Inspection, Normal Lips, Normal Teeth, Normal Gums, Normal Oropharynx, Normal Voice, No Airway Compromise Head: Atraumatic, Normocephalic Neck: Normal Inspection Respiratory/Chest: No Respiratory Distress, No Accessory Muscle Use, Chest Non- Tender, Wheezing (diffuse bilateral expiratory wheezing) Cardiovascular: Normal Peripheral Pulses, Regular Rate, Rhythm, No Murmur GI/Abdominal: Normal Bowel Sounds, Soft, Non-Tender, No Distention, No Mass Back Exam: Normal Inspection, Muscle Spasm (over R iliac crest/SI joint area, this is where she has most of her tenderness as well.) Extremities: Normal Inspection (pt has a R BKA), Normal Capillary Refill Neurological: Alert, Normal Mood/Affect, No Motor/Sensory Deficits Psychiatric: Normal Affect, Normal Mood Skin Exam: Warm, Dry, Intact, Normal Color, No Rash Course - Vital Signs Last Recorded V/S: Last Vital Signs Temp 97.7 F 08/21/19 18:10 Pulse 90 08/21/19 18:10 Resp 20 08/21/19 18:10 BP 144/76 H 08/21/19 18:10 Pulse Ox 98 08/21/19 18:51 - Orders/Labs/Meds Orders: Active Orders 24 hr Category Date Time Status RT Aerosol Therapy [RC] ASDIRECTED Care 08/21/19 18:44 Ordered Meds: Medications Discontinued Medications Generic Name Dose Route Start Last Admin Trade Name Freq PRN Reason Stop Dose Admin Albuterol 2.5 mg 08/21/19 18:43 08/21/19 18:50 Proventil Neb Soln NEB 08/21/19 18:44 2.5 mg ONETIME ONE Administration Ketorolac Tromethamine 60 mg 08/21/19 18:43 08/21/19 19:00 Toradol IM 08/21/19 18:44 60 mg ONETIME ONE Administration Orphenadrine Citrate 100 mg 08/21/19 18:43 08/21/19 19:00 Norflex PO 08/21/19 18:44 100 mg ONETIME ONE Administration - Re-Assessments/Exams Free Text/Narrative Re-Assessment/Exam: 08/21/19 18:50 Patient presents to the ED for some lower back pain. Have ordered 60 mg IM Toradol and 100 mg p.o. Norflex for initial management, and will provide an albuterol nebulizer at this time for her respiratory wheezing. Suspect more of a musculoskeletal strain/spasm in nature. Ultimately I do believe the patient is wanting narcotic pain medication, but I am hesitant to prescribe these due to her history. 08/21/19 20:31 The patient was reassessed at bedside, and she is sleeping, on the affected side on her back, which she states she could not on earlier. It appears that the medications have worked as she is found relief enough to sleep in the ER. We will discharge her home with a few tablets of Norflex and have her take some ibuprofen as needed. Departure - Departure Time of Disposition: 20:32 Disposition: Home, Self-Care 01 Condition: Fair Clinical Impression: Muscle spasm of back Low back pain Qualifiers: Chronicity: acute Back pain laterality: right Sciatica presence: without sciatica Qualified Code(s): M54.5 - Low back pain - Discharge Information *PRESCRIPTION DRUG MONITORING PROGRAM REVIEWED*: No *COPY OF PRESCRIPTION DRUG MONITORING REPORT IN PATIENT ROS: No Prescriptions: Orphenadrine [Norflex] 100 mg PO BID PRN #20 tab PRN Reason: Spasms Instructions: Muscle Cramps and Spasms Referrals: Kurtis Logan MD [Primary Care Provider] - Forms: ED Department Discharge Additional Instructions: You have been evaluated in the ED for your right lower back pain. Please use ice/heat as tolerated to the affected area. You may take Tylenol 500 mg or ibuprofen 600mg q6 hrs for pain relief. Please do so until you have a tolerable level of pain with activity. Do not exceed 4000mg Tylenol or 3200mg ibuprofen in a 24 hour time period. Given a prescription for Norflex, a muscle relaxer, please take 1 tab 2 times a day as needed for further muscle spasms. Recommend you reschedule your appointment with your primary care provider for further pain relief, or for a stronger narcotic pain medication as is not appropriate to be giving narcotic pain medications out of the ER for chronic issues. The muscle relaxer was electronically prescribed to the [facility] pharmacy located near [facility]. Please return to ED if your symptoms should change or worsen. Sepsis Event Note - Evaluation Sepsis Screening Result: No Definite Risk - Focused Exam Vital Signs: Vital Signs Temp Pulse Resp BP Pulse Ox Pulse Ox 08/21/19 18:51 98 08/21/19 18:10 97.7 F 90 20 144/76 H 99 Date Exam was Performed: 08/21/19 Time Exam was Performed: 20:31 - My Orders Last 24 Hours: My Active Orders 08/21/19 18:44 RT Aerosol Therapy [RC] ASDIRECTED - Assessment/Plan Last 24 Hours: My Active Orders 08/21/19 18:44 RT Aerosol Therapy [RC] ASDIRECTED
== END 2019-08-21 21:06 | disposition home or self-care (01) ==
LOC: JD.ED 17:42
DX: M54.5 Low back pain (principal); M62.830 Muscle spasm of back; I12.9 Hypertensive chronic kidney disease with stage 1 through stage 4 chronic kidney disease, or unspecified chronic kidney disease; E11.22 Type 2 diabetes mellitus with diabetic chronic kidney disease; N18.9 Chronic kidney disease, unspecified; E78.00 Pure hypercholesterolemia, unspecified; J44.9 Chronic obstructive pulmonary disease, unspecified; M10.9 Gout, unspecified; E11.40 Type 2 diabetes mellitus with diabetic neuropathy, unspecified; F41.9 Anxiety disorder, unspecified; F32.9 Major depressive disorder, single episode, unspecified; E66.9 Obesity, unspecified; Z68.36 Body mass index [BMI] 36.0-36.9, adult; F17.210 Nicotine dependence, cigarettes, uncomplicated; Z91.013 Allergy to seafood; Z79.899 Other long term (current) drug therapy; Z79.4 Long term (current) use of insulin
CPT/HCPCS: 94640; 96372; 99283; A9270; J1885

== ENCOUNTER 2019-08-25 14:09 | Emergency (ER) | payer MEDICAID ==
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
[2019-08-25] MEDS ORDERED: Ketorolac 60 MG/2 ML SDV IM ONE (16:18)
== END 2019-08-25 16:40 | disposition home or self-care (01) ==
LOC: JD.ED 14:09
DX: M54.5 Low back pain (principal); I10 Essential (primary) hypertension; J44.9 Chronic obstructive pulmonary disease, unspecified; E11.40 Type 2 diabetes mellitus with diabetic neuropathy, unspecified; F41.9 Anxiety disorder, unspecified; F32.9 Major depressive disorder, single episode, unspecified; E66.9 Obesity, unspecified; Z68.38 Body mass index [BMI] 38.0-38.9, adult; Z91.013 Allergy to seafood; Z79.4 Long term (current) use of insulin
CPT/HCPCS: 96372; 99283; J1885

== ENCOUNTER 2019-08-27 16:59 | Emergency (ER) | payer MEDICAID ==
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
== END 2019-08-27 17:50 | disposition home or self-care (01) ==
LOC: JD.ED 16:59 → EEVIPCON 16:59 → JD.ED 17:50
DX: R52 Pain, unspecified (principal); I10 Essential (primary) hypertension; J44.9 Chronic obstructive pulmonary disease, unspecified; I12.9 Hypertensive chronic kidney disease with stage 1 through stage 4 chronic kidney disease, or unspecified chronic kidney disease; N18.9 Chronic kidney disease, unspecified; E11.22 Type 2 diabetes mellitus with diabetic chronic kidney disease; E11.40 Type 2 diabetes mellitus with diabetic neuropathy, unspecified; E66.9 Obesity, unspecified; Z68.38 Body mass index [BMI] 38.0-38.9, adult; F41.9 Anxiety disorder, unspecified; F32.9 Major depressive disorder, single episode, unspecified; Z91.013 Allergy to seafood; Z79.899 Other long term (current) drug therapy; F17.210 Nicotine dependence, cigarettes, uncomplicated
CPT/HCPCS: 99282; 99283

== ENCOUNTER 2019-08-31 19:20 | Emergency (ER) | payer MEDICAID ==
--- NOTE | 2019-08-31 19:41 | EDM.PDOC ---
ED HPI GENERAL MEDICAL PROBLEM - General Chief Complaint: Behavioral/Psych Stated Complaint: [facility] Time Seen by Provider: 08/31/19 19:36 - History of Present Illness INITIAL COMMENTS - FREE TEXT/NARRATIVE: 49-year-old female presents the emergency room brought in by EMS with concerns of hallucinations and potential suicide thoughts. Apparently there is been about 10 calls to the police department over the last 5 days with the patient having visual and auditory hallucinations she is claimed that there have been people drinking in her house but when police arrive they are not there. She has neighbors that are scared because the patient apparently has been pounding on their windows. At this time the patient denies any suicidal thoughts denies using drugs she says she is just lonely and wants to go back to [place]. 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 - Related Data Allergies Allergy/AdvReac Type Severity Reaction Status Date / Time shellfish derived Allergy Unknown Other Verified 08/31/19 19:26 Home Meds: Home Meds Albuterol [Ventolin HFA] 1 - 2 inh INH Q4HR PRN 05/15/19 [History] DULoxetine HCl [Duloxetine HCl] 60 mg PO DAILY 05/15/19 [History] Mometasone/Formoterol [Dulera 100-5 MCG] 2 inh INH DAILY 05/15/19 [History] Omeprazole 20 mg PO DAILY 05/15/19 [History] lisinopriL [Lisinopril] 40 mg PO DAILY 05/15/19 [History] Insulin Glarg,Human.Rec.Analog [Lantus] 85 unit SUBCUT BIDAC #1700 ml 05/19/19 [ Rx] rOPINIRole [Requip] 1 mg PO BID #40 tablet 05/19/19 [Rx] Insulin Lispro [HumaLOG] 0 unit SQ TID 05/28/19 [History] Gabapentin [Neurontin] 600 mg PO TID #60 tab 06/28/19 [Rx] amLODIPine Besylate [Amlodipine Besylate] 10 mg PO DAILY 07/17/19 [History] Orphenadrine [Norflex] 100 mg PO BID PRN #20 tab 08/21/19 [Rx] Past Medical History HEENT History: Reports: Glaucoma Cardiovascular History: Reports: High Cholesterol, Hypertension Respiratory History: Reports: Asthma, COPD Genitourinary History: Reports: Chronic Renal Insuffiency, Other (See Below) Other Genitourinary History: decreased kidney function - at 25% as of 07/17/19 [employer] WORK[employer] History: Reports: Musculoskeletal History: Reports: Gout Neurological History: Reports: Neuropathy, Diabetic Other Neuro History: "maybe" Psychiatric History: Reports: Addiction, Anxiety, Depression, Psychosis, Suicide Attempt, Suicidal Ideation Endocrine/Metabolic History: Reports: Diabetes, Type II, Obesity/BMI 30+ Hematologic History: Reports: Anemia Immunologic History: Reports: None Oncologic (Cancer) History: Reports: None Dermatologic History: Reports: None - Infectious Disease History Infectious Disease History: Reports: Hepatitis C, MRSA - Past Surgical History HEENT Surgical History: Reports: Oral Surgery GI Surgical History: Reports: Cholecystectomy Female Surgical History: Reports: Section Musculoskeletal Surgical History: Reports: Amputation Social & Family History - Family History Family Medical History: Noncontributory - Tobacco Use Smoking Status *Q: Current Every Day Smoker Years of Tobacco use: 38 Packs/Tins Daily: 0.5 - Caffeine Use Caffeine Use: Reports: None Other Caffeine Use: 3 cup/day - Recreational Drug Use Recreational Drug Use: Yes Recreational Drug Type: Reports: Methamphetamine - Living Situation & Occupation Living situation: Reports: Single, Other ([employer]) Occupation: Unemployed ED ROS GENERAL - Review of Systems Review Of Systems: See Below Constitutional: Reports: No Symptoms HEENT: Reports: No Symptoms Respiratory: Reports: No Symptoms Cardiovascular: Reports: No Symptoms Endocrine: Reports: No Symptoms GI/Abdominal: Reports: No Symptoms Musculoskeletal: Reports: No Symptoms Skin: Reports: No Symptoms Psychiatric: Reports: Anxiety, Hallucinations. Denies: Homicidal Ideation, Mood Lability, Suicidal Ideation Hematologic/Lymphatic: Reports: No Symptoms Immunologic: Reports: No Symptoms - Physical Exam Exam: See Below Exam Limited By: No Limitations General Appearance: Alert, No Apparent Distress Eye Exam: Bilateral Eye: EOMI Ears: Normal External Exam, Normal Canal, Hearing Grossly Normal, Normal TMs Nose: Normal Inspection, Normal Mucosa, No Blood Throat/Mouth: Normal Inspection, Normal Lips, Normal Gums, Normal Oropharynx, Normal Voice, No Airway Compromise Head Exam: Atraumatic, Normocephalic Neck: Normal Inspection, Supple, Non-Tender, Full Range of Motion Respiratory/Chest: No Respiratory Distress, Lungs Clear, Normal Breath Sounds Cardiovascular: Regular Rate, Rhythm, No Edema, No Murmur GI/Abdominal: Normal Bowel Sounds, Soft, Non-Tender, Other (Obese) Neuro Exam (Abbreviated): Alert Back Exam: Normal Inspection. No: CVA Tenderness (L), CVA Tenderness (R) Extremities: Normal Inspection, No Pedal Edema Psychiatric: Flat Affect, Other (Adamantly denies suicidal thoughts) Skin Exam: Warm, Dry Course - Vital Signs Last Recorded V/S: Last Vital Signs Temp 35.9 C L 08/31/19 19:23 Pulse 97 09/01/19 00:45 Resp 16 09/01/19 00:45 BP 163/78 H 09/01/19 00:45 Pulse Ox 97 09/01/19 00:45 - Orders/Labs/Meds Orders: Active Orders 24 hr Category Date Time Status EKG Documentation Completion [RC] STAT Care 08/31/19 19:59 Active CULTURE URINE [RM] Stat Lab 08/31/19 23:43 Received GABAPENTIN, SERUM [REF] Stat Lab 09/01/19 07:14 Ordered Labs: Laboratory Tests 08/31/19 08/31/19 08/31/19 Range/Units 20:09 20:51 20:51 WBC 10.91 H (3.98-10.04) K/mm3 RBC 4.32 (3.98-5.22) M/mm3 Hgb 10.9 L (11.2-15.7) gm/dl Hct 35.1 (34.1-44.9) % MCV 81.3 (79.4-94.8) fl MCH 25.2 L (25.6-32.2) pg MCHC 31.1 L (32.2-35.5) g/dl RDW Std Deviation 55.6 H (36.4-46.3) fL Plt Count 509 H (182-369) K/mm3 MPV 8.9 L (9.4-12.3) fl Neut % (Auto) 60.1 (34.0-71.1) % Lymph % (Auto) 28.0 (19.3-51.7) % [place] % (Auto) 7.9 (4.7-12.5) % Eos % (Auto) 3.3 (0.7-5.8) Baso % (Auto) 0.6 (0.1-1.2) % Neut # (Auto) 6.55 H (1.56-6.13) K/mm3 Lymph # (Auto) 3.06 (1.18-3.74) K/mm3 [place] # (Auto) 0.86 H (0.24-0.36) K/mm3 Eos # (Auto) 0.36 (0.04-0.36) K/mm3 Baso # (Auto) 0.07 (0.01-0.08) K/mm3 Manual Slide Review Abnormal smear Sodium 141 (136-145) mEq/L Potassium 4.5 (3.5-5.1) mEq/L Chloride 108 H (98-107) mEq/L Carbon Dioxide 17 L (21-32) mEq/L Anion Gap 20.5 H (5-15) BUN 48 H (7-18) mg/dL Creatinine 2.7 H (0.55-1.02) mg/dL Est Cr Clr Drug Dosing TNP Estimated GFR (MDRD) 19 (>60) mL/min BUN/Creatinine Ratio 17.8 (14-18) Glucose 197 H (74-106) mg/dL POC Glucose 186 H (70-105) mg/dL Calcium 8.4 L (8.5-10.1) mg/dL Total Bilirubin 0.2 (0.2-1.0) mg/dL AST 6 L (15-37) U/L ALT 15 (14-59) U/L Alkaline Phosphatase 106 (46-116) U/L Total Protein 7.5 (6.4-8.2) g/dl Albumin 2.9 L (3.4-5.0) g/dl Globulin 4.6 gm/dL Albumin/Globulin Ratio 0.6 L (1-2) TSH 3rd Generation 1.660 (0.358-3.74) uIU/mL Urine Color (Yellow) Urine Appearance (Clear) Urine pH (5.0-8.0) Ur Specific [place] (1.005-1.030) Urine Protein (Negative) Urine Glucose (UA) (Negative) Urine Ketones (Negative) Urine Occult Blood (Negative) Urine Nitrite (Negative) Urine Bilirubin (Negative) Urine Urobilinogen (0.2-1.0) Ur Leukocyte Esterase (Negative) Urine RBC (0-5) /hpf Urine WBC (0-5) /hpf Urine WBC Clumps (NOT SEEN) /hpf Ur Squamous Epith Cells (0-5) /hpf Urine Bacteria (FEW) /hpf Urine Mucus (FEW) /hpf Urine Opiates Screen (VYYFKX=558) Ur Buprenorphine Scrn (CUTOFF=10) Ur Oxycodone Screen (HMN5BV=991) Urine Methadone Screen (MNFRGS=433) Ur Propoxyphene Screen (SGLXOL=791) Ur Barbiturates Screen (QNNHUN=461) Ur Tricyclics Screen (JGVIOO=091) Ur Phencyclidine Scrn (CUTOFF=25) Ur Amphetamine Screen (JRMHHX=595) U Methamphetamines Scrn (QZSCRE=220) U Benzodiazepines Scrn (MVYFQF=698) U Cocaine Metab Screen (XAOQCD=543) U Marijuana (THC) Screen (CUTOFF=50) Ethyl Alcohol 0.00 (0.00) gm% 08/31/19 08/31/19 08/31/19 Range/Units 23:43 23:43 23:57 WBC (3.98-10.04) K/mm3 RBC (3.98-5.22) M/mm3 Hgb (11.2-15.7) gm/dl Hct (34.1-44.9) % MCV (79.4-94.8) fl MCH (25.6-32.2) pg MCHC (32.2-35.5) g/dl RDW Std Deviation (36.4-46.3) fL Plt Count (182-369) K/mm3 MPV (9.4-12.3) fl Neut % (Auto) (34.0-71.1) % Lymph % (Auto) (19.3-51.7) % [place] % (Auto) (4.7-12.5) % Eos % (Auto) (0.7-5.8) Baso % (Auto) (0.1-1.2) % Neut # (Auto) (1.56-6.13) K/mm3 Lymph # (Auto) (1.18-3.74) K/mm3 [place] # (Auto) (0.24-0.36) K/mm3 Eos # (Auto) (0.04-0.36) K/mm3 Baso # (Auto) (0.01-0.08) K/mm3 Manual Slide Review Sodium (136-145) mEq/L Potassium (3.5-5.1) mEq/L Chloride (98-107) mEq/L Carbon Dioxide (21-32) mEq/L Anion Gap (5-15) BUN (7-18) mg/dL Creatinine (0.55-1.02) mg/dL Est Cr Clr Drug Dosing Estimated GFR (MDRD) (>60) mL/min BUN/Creatinine Ratio (14-18) Glucose (74-106) mg/dL POC Glucose 225 H (70-105) mg/dL Calcium (8.5-10.1) mg/dL Total Bilirubin (0.2-1.0) mg/dL AST (15-37) U/L ALT (14-59) U/L Alkaline Phosphatase (46-116) U/L Total Protein (6.4-8.2) g/dl Albumin (3.4-5.0) g/dl Globulin gm/dL Albumin/Globulin Ratio (1-2) TSH 3rd Generation (0.358-3.74) uIU/mL Urine Color Light yellow (Yellow) Urine Appearance Clear (Clear) Urine pH 7.0 (5.0-8.0) Ur Specific [place] 1.025 (1.005-1.030) Urine Protein 3+ H (Negative) Urine Glucose (UA) Trace H (Negative) Urine Ketones Negative (Negative) Urine Occult Blood Trace-intact H (Negative) Urine Nitrite Negative (Negative) Urine Bilirubin Negative (Negative) Urine Urobilinogen 0.2 (0.2-1.0) Ur Leukocyte Esterase 1+ H (Negative) Urine RBC 0-5 (0-5) /hpf Urine WBC 20-30 H (0-5) /hpf Urine WBC Clumps Few (NOT SEEN) /hpf Ur Squamous Epith Cells 0-5 (0-5) /hpf Urine Bacteria Few (FEW) /hpf Urine Mucus Few (FEW) /hpf Urine Opiates Screen Negative (NXKSGJ=152) Ur Buprenorphine Scrn Negative (CUTOFF=10) Ur Oxycodone Screen Negative (KHO6IK=757) Urine Methadone Screen Negative (VPKEDM=451) Ur Propoxyphene Screen Negative (ARSQOL=278) Ur Barbiturates Screen Negative (HOBOKR=533) Ur Tricyclics Screen Negative (LJGKAI=583) Ur Phencyclidine Scrn Negative (CUTOFF=25) Ur Amphetamine Screen Presumptive positive H (HEWGJQ=320) U Methamphetamines Scrn Presumptive positive H (QWSNXG=278) U Benzodiazepines Scrn Negative (OHFRKN=883) U Cocaine Metab Screen Negative (HPNJIZ=470) U Marijuana (THC) Screen Negative (CUTOFF=50) Ethyl Alcohol (0.00) gm% 09/01/19 09/01/19 Range/Units 04:55 07:28 WBC (3.98-10.04) K/mm3 RBC (3.98-5.22) M/mm3 Hgb (11.2-15.7) gm/dl Hct (34.1-44.9) % MCV (79.4-94.8) fl MCH (25.6-32.2) pg MCHC (32.2-35.5) g/dl RDW Std Deviation (36.4-46.3) fL Plt Count (182-369) K/mm3 MPV (9.4-12.3) fl Neut % (Auto) (34.0-71.1) % Lymph % (Auto) (19.3-51.7) % [place] % (Auto) (4.7-12.5) % Eos % (Auto) (0.7-5.8) Baso % (Auto) (0.1-1.2) % Neut # (Auto) (1.56-6.13) K/mm3 Lymph # (Auto) (1.18-3.74) K/mm3 [place] # (Auto) (0.24-0.36) K/mm3 Eos # (Auto) (0.04-0.36) K/mm3 Baso # (Auto) (0.01-0.08) K/mm3 Manual Slide Review Sodium (136-145) mEq/L Potassium (3.5-5.1) mEq/L Chloride (98-107) mEq/L Carbon Dioxide (21-32) mEq/L Anion Gap (5-15) BUN (7-18) mg/dL Creatinine (0.55-1.02) mg/dL Est Cr Clr Drug Dosing Estimated GFR (MDRD) (>60) mL/min BUN/Creatinine Ratio (14-18) Glucose (74-106) mg/dL POC Glucose 199 H 174 H (70-105) mg/dL Calcium (8.5-10.1) mg/dL Total Bilirubin (0.2-1.0) mg/dL AST (15-37) U/L ALT (14-59) U/L Alkaline Phosphatase (46-116) U/L Total Protein (6.4-8.2) g/dl Albumin (3.4-5.0) g/dl Globulin gm/dL Albumin/Globulin Ratio (1-2) TSH 3rd Generation (0.358-3.74) uIU/mL Urine Color (Yellow) Urine Appearance (Clear) Urine pH (5.0-8.0) Ur Specific [place] (1.005-1.030) Urine Protein (Negative) Urine Glucose (UA) (Negative) Urine Ketones (Negative) Urine Occult Blood (Negative) Urine Nitrite (Negative) Urine Bilirubin (Negative) Urine Urobilinogen (0.2-1.0) Ur Leukocyte Esterase (Negative) Urine RBC (0-5) /hpf Urine WBC (0-5) /hpf Urine WBC Clumps (NOT SEEN) /hpf Ur Squamous Epith Cells (0-5) /hpf Urine Bacteria (FEW) /hpf Urine Mucus (FEW) /hpf Urine Opiates Screen (OWWPYK=802) Ur Buprenorphine Scrn (CUTOFF=10) Ur Oxycodone Screen (OUO8PL=468) Urine Methadone Screen (YKNJJO=721) Ur Propoxyphene Screen (CUGWQC=218) Ur Barbiturates Screen (NIOHXY=839) Ur Tricyclics Screen (KNFBRB=694) Ur Phencyclidine Scrn (CUTOFF=25) Ur Amphetamine Screen (OSYNXW=821) U Methamphetamines Scrn (TXJZBS=152) U Benzodiazepines Scrn (MOLQCW=489) U Cocaine Metab Screen (OUATRW=625) U Marijuana (THC) Screen (CUTOFF=50) Ethyl Alcohol (0.00) gm% Meds: Medications Discontinued Medications Generic Name Dose Route Start Last Admin Trade Name Freq PRN Reason Stop Dose Admin Gabapentin 300 mg 08/31/19 22:45 08/31/19 23:55 Neurontin PO 08/31/19 22:46 300 mg ONETIME ONE Administration Lactated Ringer's 1,000 mls @ 999 mls/hr 08/31/19 22:41 09/01/19 00:02 Ringers, Lactated IV 08/31/19 23:41 Not Given .BOLUS ONE Insulin Glargine 75 unit 09/01/19 22:45 Lantus SUBCUT 09/01/19 22:46 ONETIME ONE Insulin Glargine 40 unit 09/01/19 22:48 Lantus SUBCUT 09/01/19 22:49 ONETIME ONE Insulin Glargine 40 unit 08/31/19 22:48 08/31/19 23:57 Lantus SUBCUT 08/31/19 22:49 40 units ONETIME ONE Administration Lorazepam 1 mg 08/31/19 23:35 08/31/19 23:58 Ativan IM 08/31/19 23:36 1 mg ONETIME ONE Administration - Re-Assessments/Exams Free Text/Narrative Re-Assessment/Exam: 08/31/19 23:20 Labs reviewed her BUN is elevated creatinine starting to come up normally her baseline is about 2-2.1 she is 2.5 usually her BUNs in the 30s and she is now 46. At this time patient is refusing IV fluids. We will give this some time as I think pushing the issue will escalate her behavior. 09/01/19 07:35 The case was discussed with Dr. Woodson, psychiatrist at [facility]. Patient is medically stable however she needs to push oral intake and her eat urine was possibly suggestive of a developing urinary tract infection I have recommended awaiting culture and sensitivity before starting treatment Dr. Woodson kindly accepts the patient in transfer. Departure - Departure Time of Disposition: 07:37 Disposition: DC/Tfer to [facility] 03 Clinical Impression: Poorly controlled diabetes mellitus, Acute psychosis, Mild dehydration, Renal insufficiency - Discharge Information Referrals: PCP,None [Primary Care Provider] - Forms: ED Department Discharge Sepsis Event Note - Evaluation Sepsis Screening Result: No Definite Risk - Focused Exam Vital Signs: Vital Signs Pulse Resp BP Pulse Ox 09/01/19 00:45 97 16 163/78 H 97 Date Exam was Performed: 09/01/19 Time Exam was Performed: 07:35 - My Orders Last 24 Hours: My Active Orders 08/31/19 19:59 EKG Documentation Completion [RC] STAT 08/31/19 23:43 CULTURE URINE [RM] Stat 09/01/19 07:14 GABAPENTIN, SERUM [REF] Stat - Assessment/Plan Last 24 Hours: My Active Orders 08/31/19 19:59 EKG Documentation Completion [RC] STAT 08/31/19 23:43 CULTURE URINE [RM] Stat 09/01/19 07:14 GABAPENTIN, SERUM [REF] Stat
[2019-08-31] MEDS ORDERED: Lactated Ringers 1,000 ML IV ONE (22:41)
[2019-08-31] MEDS ORDERED: Gabapentin 300 MG Cap PO ONE (22:45)
[2019-08-31] MEDS ORDERED: Insulin Glarg,Human.Rec.Analog 100 Unit/ML SUBCUT ONE (22:48)
[2019-08-31] MEDS ORDERED: LORazepam 2 MG/ML SDV IM ONE (23:35)
[2019-09-01] MEDS ORDERED: Insulin Glarg,Human.Rec.Analog 100 Unit/ML SUBCUT ONE ×2 (22:45→22:48)
== END 2019-09-01 14:25 ==
LOC: JD.ED 19:20
DX: F23 Brief psychotic disorder (principal); E86.0 Dehydration; I12.9 Hypertensive chronic kidney disease with stage 1 through stage 4 chronic kidney disease, or unspecified chronic kidney disease; E11.22 Type 2 diabetes mellitus with diabetic chronic kidney disease; N18.9 Chronic kidney disease, unspecified; J44.9 Chronic obstructive pulmonary disease, unspecified; M10.9 Gout, unspecified; F41.9 Anxiety disorder, unspecified; F32.9 Major depressive disorder, single episode, unspecified; E66.9 Obesity, unspecified; E11.40 Type 2 diabetes mellitus with diabetic neuropathy, unspecified; F17.210 Nicotine dependence, cigarettes, uncomplicated; Z91.013 Allergy to seafood; Z79.4 Long term (current) use of insulin; Z79.899 Other long term (current) drug therapy
CPT/HCPCS: 36415; 80053; 80171; 80306; 80307; 81001; 82962; 84443; 85025; 87086; 93005; 99285; A9270; J2060; 93010

== ENCOUNTER 2019-10-21 07:30 | Emergency (ER) | payer MEDICAID ==
[2019-10-21] MEDS ORDERED: HYDROmorphone 1 MG/ML Syringe IVPUSH ONE (07:49)
[2019-10-21] MEDS ORDERED: Promethazine 25 MG in Sodium Chloride 0.9% 50 ML IV ONE (07:50)
--- NOTE | 2019-10-21 07:53 | EDM.PDOC ---
ED HPI GENERAL MEDICAL PROBLEM - General Chief Complaint: Upper Extremity Injury/Pain Stated Complaint: [facility] Time Seen by Provider: 10/21/19 07:39 Source of Information: Reports: Patient, EMS History Limitations: Reports: Intoxication - History of Present Illness INITIAL COMMENTS - FREE TEXT/NARRATIVE: 49-year-old female of [place] ancestry presents to the ED per [facility]. The history of that of severe pain in her right shoulder of spontaneous onset without known trauma or fall. She appears to be intoxicated and very sleepy and sedated. She cannot tell me if she was pulling herself up on a bar to get up off the toilet but realized that she could not get off the toilet on her own volition and called 911. Apparently there was no problem with her right arm yesterday. Very uncooperative and falls asleep easily. She appears to be intoxicated by drugs and/or alcohol. 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 Onset: Unknown/Unsure Onset Date: 10/21/19 (Fairly right arm was normal yesterday.) Duration: Hour(s): Location: Reports: Upper Extremity, Right Quality: Reports: Ache (Pain in her right shoulder. Patient cannot point to any one specific area.), Throbbing Severity: Severe (10 out of 10) Improves with: Reports: Rest Worsens with: Reports: Movement Context: Denies: Activity, Exercise, Lifting, Sick Contact, Trauma, Other Associated Symptoms: Reports: Loss of Appetite, Malaise. Denies: Confusion, Chest Pain, Cough, cough w sputum, Nausea/Vomiting, Rash, Seizure Treatments EXAMINATION SCORER: Reports: Other (see below) (She has taking nothing for the pain. ) Right Shoulder Pain Score (Numeric/FACES): 8 - Related Data Allergies Allergy/AdvReac Type Severity Reaction Status Date / Time shellfish derived Allergy Unknown Other Verified 10/21/19 07:33 Home Meds: Home Meds Albuterol [Ventolin HFA] 1 - 2 inh INH Q4HR PRN 05/15/19 [History] DULoxetine HCl [Duloxetine HCl] 60 mg PO DAILY 05/15/19 [History] Mometasone/Formoterol [Dulera 100-5 MCG] 2 inh INH DAILY 05/15/19 [History] Omeprazole 20 mg PO DAILY 05/15/19 [History] lisinopriL [Lisinopril] 40 mg PO DAILY 05/15/19 [History] Insulin Glarg,Human.Rec.Analog [Lantus] 85 unit SUBCUT BIDAC #1700 ml 05/19/19 [ Rx] rOPINIRole [Requip] 1 mg PO BID #40 tablet 05/19/19 [Rx] Insulin Lispro [HumaLOG] 0 unit SQ TID 05/28/19 [History] Gabapentin [Neurontin] 600 mg PO TID #60 tab 06/28/19 [Rx] amLODIPine Besylate [Amlodipine Besylate] 10 mg PO DAILY 07/17/19 [History] Orphenadrine [Norflex] 100 mg PO BID PRN #20 tab 08/21/19 [Rx] oxyCODONE HCl/Acetaminophen [Percocet 5-325 mg Tablet] 1 - 2 each PO Q4H PRN # 15 tablet 10/21/19 [Rx] predniSONE [Prednisone] 20 mg PO ASDIRECTED #15 tablet 10/21/19 [Rx] Past Medical History HEENT History: Reports: Glaucoma Cardiovascular History: Reports: High Cholesterol, Hypertension Respiratory History: Reports: Asthma, COPD Genitourinary History: Reports: Chronic Renal Insuffiency, Other (See Below) Other Genitourinary History: decreased kidney function - at 25% as of 07/17/19 [employer]AT[employer] 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: Musculoskeletal History: Reports: Gout Neurological History: Reports: Neuropathy, Diabetic Other Neuro History: "maybe" Psychiatric History: Reports: Addiction, Anxiety, Depression, Psychosis, Suicide Attempt, Suicidal Ideation Endocrine/Metabolic History: Reports: Diabetes, Type II, Obesity/BMI 30+ Hematologic History: Reports: Anemia Immunologic History: Reports: None Oncologic (Cancer) History: Reports: None Dermatologic History: Reports: None - Infectious Disease History Infectious Disease History: Reports: Hepatitis C, MRSA - Past Surgical History HEENT Surgical History: Reports: Oral Surgery GI Surgical History: Reports: Cholecystectomy Female Surgical History: Reports: Section Musculoskeletal Surgical History: Reports: Amputation Social & Family History - Family History Family Medical History: Noncontributory - Tobacco Use Smoking Status *Q: Current Every Day Smoker Years of Tobacco use: 35 Packs/Tins Daily: 0.5 - Caffeine Use Caffeine Use: Reports: Coffee Other Caffeine Use: 3 cup/day - Recreational Drug Use Recreational Drug Use: No - Living Situation & Occupation Living situation: Reports: Single, Other ([employer] [facility]) Occupation: Unemployed Review of Systems - Review of Systems Review Of Systems: See Below Constitutional: Reports: Weakness. Denies: Chills, Diaphoresis, Fever, Other Eyes: Reports: No Symptoms. Denies: Drainage, Decreased Acuity (Right arm due to pain.) Ears: Reports: No Symptoms Mouth/Throat: Reports: No Symptoms Respiratory: Reports: Shortness of Breath Cardiovascular: Reports: No Symptoms, Other (History of hypertension) GI/Abdominal: Reports: No Symptoms Genitourinary: Reports: No Symptoms Musculoskeletal: Reports: Back Pain (A low knee amputation on the right side. Chronic low back pain having pain in her right shoulder), Other Skin: Reports: No Symptoms Neurological: Reports: No Symptoms Psychiatric: Reports: Other (Known to have problems with alcohol and drugs.) ED EXAM, GENERAL - Physical Exam Exam: See Below Exam Limited By: Altered Mental Status General Appearance: Lethargic, Other (Temperature is 36.2. Heart rate is 95 and sinus respiratory is 22 with sats of 100% on room air. BP 101 on 89.). No : Anxious Eye Exam: Bilateral Eye: Normal Inspection, PERRL Throat/Mouth: Other Head: Atraumatic (Tongue appears dry and mildly coated.), Normocephalic, Other ( There are no outward signs of head or facial trauma) Neck: Normal Inspection, Supple, Non-Tender, Full Range of Motion. No: Carotid Bruit, Lymphadenopathy (L), Lymphadenopathy (R) Respiratory/Chest: Lungs Clear (Tachypnea at rest.), Normal Breath Sounds, Respiratory Distress, Decreased Breath Sounds Cardiovascular: Regular Rate, Rhythm, No Gallop, No Murmur, No Rub. No: Normal Peripheral Pulses (Decreased breath sounds to the lower 25% lung kelley bilaterally.) Peripheral Pulses: 1+: Posterior Tibial (L), Dorsalis Pedis (L) GI/Abdominal: Normal Bowel Sounds, Soft, Non-Tender, No Organomegaly, No Mass, Pelvis Stable, Other (Abdominal girth limits ability to palpate solid organs.) Extremities: Other (Is in a below below knee amputation on the right side with the amputated well-healed.) Neurological: CN II-XII Intact, Inattentive, Slow to Respond, Other (Peers sedated are under the effects of drug or alcohol.). No: Normal Cognition, Normal Reflexes, No Motor/Sensory Deficits Psychiatric: Flat Affect Skin Exam: Warm, Dry, Intact, Normal Color, No Rash Course - Vital Signs Last Recorded V/S: Last Vital Signs Temp 36.2 C 10/21/19 07:34 Pulse 95 10/21/19 07:34 Resp 22 H 10/21/19 07:34 BP 101/89 10/21/19 07:34 Pulse Ox 100 10/21/19 07:34 - Orders/Labs/Meds Orders: Active Orders 24 hr Category Date Time Status Dextrose 5%-0.9% NaCl [Dextrose 5%-Normal Saline] 1,000 Med 10/21/19 08:00 Active ml IV ASDIRECTED Durable Medical Equipment for Discharge [DME for Oth 10/21/19 11:02 Ordered Discharge] [COMM] Stat Medication Orders Dextrose/Sodium Chloride (Dextrose 5%-Normal Saline) 1,000 mls @ 500 mls/hr IV ASDIRECTED [facility] Last Admin: 10/21/19 08:45 Dose: 500 mls/hr Labs: Laboratory Tests 10/21/19 10/21/19 10/21/19 Range/Units 08:34 08:34 08:34 WBC 10.85 H (3.98-10.04) K/mm3 RBC 3.68 L (3.98-5.22) M/mm3 Hgb 9.4 L D (11.2-15.7) gm/dl Hct 30.4 L (34.1-44.9) % MCV 82.6 (79.4-94.8) fl MCH 25.5 L (25.6-32.2) pg MCHC 30.9 L (32.2-35.5) g/dl RDW Std Deviation 48.5 H (36.4-46.3) fL Plt Count 392 H D (182-369) K/mm3 MPV 9.5 (9.4-12.3) fl Neut % (Auto) 69.9 (34.0-71.1) % Lymph % (Auto) 19.4 (19.3-51.7) % Sterling % (Auto) 5.9 (4.7-12.5) % Eos % (Auto) 4.0 (0.7-5.8) Baso % (Auto) 0.6 (0.1-1.2) % Neut # (Auto) 7.58 H (1.56-6.13) K/mm3 Lymph # (Auto) 2.11 (1.18-3.74) K/mm3 Sterling # (Auto) 0.64 H (0.24-0.36) K/mm3 Eos # (Auto) 0.43 H (0.04-0.36) K/mm3 Baso # (Auto) 0.07 (0.01-0.08) K/mm3 PT 10.1 (9.7-12.0) SECONDS INR 0.93 APTT 24 (22-31) SECONDS Sodium 140 (136-145) mEq/L Potassium 4.9 (3.5-5.1) mEq/L Chloride 109 H (98-107) mEq/L Carbon Dioxide 20 L (21-32) mEq/L Anion Gap 15.9 H (5-15) BUN 50 H (7-18) mg/dL Creatinine 3.0 H (0.55-1.02) mg/dL Est Cr Clr Drug Dosing 22.38 mL/min Estimated GFR (MDRD) 16 (>60) mL/min BUN/Creatinine Ratio 16.7 (14-18) Glucose 208 H (74-106) mg/dL Calcium 8.5 (8.5-10.1) mg/dL Total Bilirubin 0.3 (0.2-1.0) mg/dL AST 11 L (15-37) U/L ALT 20 (14-59) U/L Alkaline Phosphatase 124 H (46-116) U/L Total Protein 6.8 (6.4-8.2) g/dl Albumin 2.7 L (3.4-5.0) g/dl Globulin 4.1 gm/dL Albumin/Globulin Ratio 0.7 L (1-2) Ethyl Alcohol 0.00 (0.00) gm% Meds: Medications Generic Name Dose Route Start Last Admin Trade Name Freq PRN Reason Stop Dose Admin Dextrose/Sodium Chloride 1,000 mls @ 500 mls/hr 10/21/19 08:00 10/21/19 08:45 Dextrose 5%-Normal Saline IV 500 mls/hr ASDIRECTED KENJI Administration Discontinued Medications Generic Name Dose Route Start Last Admin Trade Name Brennon PRN Reason Stop Dose Admin Hydromorphone HCl 1 mg 10/21/19 07:49 10/21/19 08:45 Dilaudid IVPUSH 10/21/19 07:50 1 mg ONETIME ONE Administration Promethazine HCl 25 mg/ Sodium 51 mls @ 100 mls/hr 10/21/19 07:50 10/21/19 08 :45 Chloride IV 10/21/19 08:20 100 mls/hr ONETIME ONE Administration Prednisone 20 mg 10/21/19 11:08 10/21/19 11:41 Prednisone PO 10/21/19 11:09 20 mg ONETIME ONE Administration - Radiology Interpretation Free Text/Narrative:: 49-year-old female [place] presents to the ED complaining of severe pain in her right shoulder. No known trauma. She recognized she could not get up from the toilet at home and called 911 this morning. Fairly there was no problem with her right arm this morning yesterday. On examination she is lethargic and appears to be sedated and intoxicated. She complains of pain on palpation of the biceps tendon. There is pain in the right shoulder with pronation supination at the elbow. I find her symptoms very dramatic and exaggerated. She would not allow me to abduct the shoulder or to forward flex the shoulder due to pain. Plan x-rays of the right humerus to be done. Dilaudid 1 mg IV for pain relief with Phenergan 25 mg IV for nausea relief. Routine labs including ethanol level to be obtained and urine drug screen. - Re-Assessments/Exams Free Text/Narrative Re-Assessment/Exam: 10/21/19 08:41 strays of the right humerus are totally within normal limits. There is no abnormal calcification in the true shoulder joint. Clinically she has bicipital tendinitis. 10/21/19 10:56 Labs reveal a white count of 10.85 with 70% neutrophils on the auto differential. Hemoglobin is low at 9.4 with hematocrit of 30.4. MCV is 82.6. Platelet count 392,000. PT is 10.1 with an INR of 0.93. PTT is 24. Sodium 140 with a potassium of 4.9. Chloride 109 with a bicarb of 20. Anion gap is 15.9. BUN is 50 with a creatinine of 3.0 GFR is 16 i.e. stage IV chronic kidney disease. Glucose 208 patient is a known diabetic. Calcium 8.5 with a bilirubin of 0.3. AST is 11 ALT is 20. Alk phos stays 124. Total protein is 6.8 with an albumin fraction of 2.7. Blood alcohol is 0.0 at this time. 10/21/19 11:01 at this time she appears to have a tendinitis in her right shoulder. She will cooperate enough to help us decide if there is any true rotator cuff injury. She did not have any alcohol in her system and she is not voided to see if there is anything in the urine that would make her intoxicated. Nurses appreciate that she is alert and is okay for discharge. Will be placed on the right arm sling. Cannot use any NSAIDs because of renal insufficiency. Start on prednisone 20 mg twice daily and Percocet tablets 5/ 325 1 every 4 hours as needed for pain relief x14 tablets. 10/21/19 13:35 patient's discharge was delayed as she could not find a ride to take her home. Departure - Departure Time of Disposition: 13:20 Disposition: Home, Self-Care 01 Condition: Fair Clinical Impression: Tendinitis of upper biceps tendon of right shoulder - Discharge Information *PRESCRIPTION DRUG MONITORING PROGRAM REVIEWED*: Not Applicable *COPY OF PRESCRIPTION DRUG MONITORING REPORT IN PATIENT ROS: Not Applicable Prescriptions: oxyCODONE HCl/Acetaminophen [Percocet 5-325 mg Tablet] 1 - 2 each PO Q4H PRN # 15 tablet PRN Reason: pain relief. predniSONE [Prednisone] 20 mg PO ASDIRECTED #15 tablet Instructions: Tendinitis Referrals: PCP,None [Primary Care Provider] - Forms: ED Department Discharge Additional Instructions: Evaluation in the emergency room today in regards to acute onset of pain in your right shoulder. Clinically you had pain along the distribution of the short and long head of the biceps tendon in the anterior shoulder. Pain was too severe to allow appropriate shoulder examination to make sure there was no rotator cuff tear but this is highly unlikely since there is been no falls or obvious injuries. An x-ray of the shoulder and arm bone was negative for any broken bones or calcification in the tendons in your right shoulder. Shoulder blade and collarbone or acromioclavicular joint all were within normal limits. Lab tests reveal significant kidney disease with a GFR of 16 making you stage IV kidney failure. Make sure you are being followed up by event decorator and designer as you are going to require dialysis in the very near future. Treatment today is pain medication given in the ED. You will need to take prednisone 20 mg tablet twice daily starting with first tablet before supper today. Then 1 tablet with breakfast and supper for 5 days and then once in the morning for another 5 days to relieve pain and inflammation of your right shoulder. You cannot take Motrin or Aleve due to kidney disease. Percocet tabs 5 325 mg strength 1 tablet every 4-6 hours necessary for pain relief. Suggest right arm in a sling for comfort for the next 4 to 5 days and then remove the sling and allow gentle range of motion. Follow-up with personal care physician if not getting better in 7 to 10 days time. Sepsis Event Note (ED) - Evaluation Sepsis Screening Result: No Definite Risk - Focused Exam Vital Signs: Vital Signs Temp Pulse Resp BP Pulse Ox 10/21/19 07:34 36.2 C 95 22 H 101/89 100 - My Orders Last 24 Hours: My Active Orders 10/21/19 08:00 Dextrose 5%-0.9% NaCl [Dextrose 5%-Normal Saline] 1,000 ml IV ASDIRECTED 10/21/19 11:02 Durable Medical Equipment for Discharge [DME for Discharge] [COMM] Stat - Assessment/Plan Last 24 Hours: My Active Orders 10/21/19 08:00 Dextrose 5%-0.9% NaCl [Dextrose 5%-Normal Saline] 1,000 ml IV ASDIRECTED 10/21/19 11:02 Durable Medical Equipment for Discharge [DME for Discharge] [COMM] Stat
[2019-10-21] MEDS ORDERED: Dextrose 5%-0.9% NaCl 1,000 ML IV SCH (08:00)
--- NOTE | 2019-10-21 08:35 | CR ---
Right humerus: 2 views of the right humerus were obtained. Comparison: No prior humerus exam. No discrete fracture or other bony abnormality is appreciated. Impression: 1. No abnormality is identified on right humerus exam. Diagnostic code #1 This report was dictated in MDT
[2019-10-21] MEDS ORDERED: predniSONE 20 MG Tab PO ONE (11:08)
== END 2019-10-21 12:35 | disposition home or self-care (01) ==
LOC: EEVIPCON 07:30 → JD.ED 07:30
DX: M75.21 Bicipital tendinitis, right shoulder (principal); I12.9 Hypertensive chronic kidney disease with stage 1 through stage 4 chronic kidney disease, or unspecified chronic kidney disease; N18.9 Chronic kidney disease, unspecified; J44.9 Chronic obstructive pulmonary disease, unspecified; E11.40 Type 2 diabetes mellitus with diabetic neuropathy, unspecified; F17.210 Nicotine dependence, cigarettes, uncomplicated; E66.9 Obesity, unspecified; Z68.36 Body mass index [BMI] 36.0-36.9, adult; Z91.013 Allergy to seafood
CPT/HCPCS: 36415; 73060; 80053; 80307; 85025; 85610; 85730; 96361; 96365; 96375; 99284; J1170; J2550; J7042; J7050; J7512

== ENCOUNTER 2019-10-30 06:27 | Emergency (ER) | payer MEDICAID ==
--- NOTE | 2019-10-30 07:00 | EDM.PDOC ---
ED HPI GENERAL MEDICAL PROBLEM - General Chief Complaint: Lower Extremity Injury/Pain Stated Complaint: LEG PAIN Time Seen by Provider: 10/30/19 06:59 Source of Information: Reports: Patient History Limitations: Reports: No Limitations - History of Present Illness INITIAL COMMENTS - FREE TEXT/NARRATIVE: 49-year-old female of [place] ancestry presents to the ED with left lower extremity pain. Clinically its lancinating shooting burning and appears to be neuropathic pain secondary to her diabetes which she has had long- term. 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 She therefore has significant peripheral vascular disease which is contributing to her pain syndrome as well. She has neuropathy in her upper extremities as well. She is continuously moving the leg i.e. restless leg syndrome. She has stage IV chronic kidney disease. She states is been like that for the last 2 days is the only way she can get any relief of the discomfort. She takes gabapentin 600 mg 3 times daily and probably could benefit from an increase in dosage. States the pain is bad enough that is kept her awake the last 2 nights. She is somewhat hypersomnolent in the ED but not nearly as bad as she was on my last visit with her. Onset: Gradual Onset Date: 10/29/19 (Patient gets neuropathic pain that just acts up periodically in her limbs usually 2 or 3 days a week.) Duration: Chronic, Getting Worse Location: Reports: Lower Extremity, Left (Current pain left lower extremity from thigh all the way down to her toes. ) Quality: Reports: Ache, Burning, Sharp, Stabbing, Other Severity: Severe (Is lancinating burning shooting.) Improves with: Reports: None ( 8 out of 10.) Worsens with: Reports: None Context: Reports: Other (Spontaneous occurrence). Denies: Activity, Exercise, Lifting, Sick Contact, Trauma Associated Symptoms: Reports: Loss of Appetite, Malaise, Shortness of Breath. 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 She ran out of his medication few days ago.) Left Leg Pain Score (Numeric/FACES): 10 - Related Data Allergies Allergy/AdvReac Type Severity Reaction Status Date / Time shellfish derived Allergy Severe Other Verified 10/30/19 06:38 Home Meds: Home Meds Albuterol [Ventolin HFA] 1 - 2 inh INH Q4HR PRN 05/15/19 [History] DULoxetine HCl [Duloxetine HCl] 60 mg PO DAILY 05/15/19 [History] Mometasone/Formoterol [Dulera 100-5 MCG] 2 inh INH DAILY 05/15/19 [History] Omeprazole 20 mg PO DAILY 05/15/19 [History] lisinopriL [Lisinopril] 40 mg PO DAILY 05/15/19 [History] Insulin Glarg,Human.Rec.Analog [Lantus] 85 unit SUBCUT BIDAC #1700 ml 05/19/19 [Rx] rOPINIRole [Requip] 1 mg PO BID #40 tablet 05/19/19 [Rx] Insulin Lispro [HumaLOG] 0 unit SQ TID 05/28/19 [History] Gabapentin [Neurontin] 600 mg PO TID #60 tab 06/28/19 [Rx] amLODIPine Besylate [Amlodipine Besylate] 10 mg PO DAILY 07/17/19 [History] Orphenadrine [Norflex] 100 mg PO BID PRN #20 tab 08/21/19 [Rx] oxyCODONE HCl/Acetaminophen [Percocet 5-325 mg Tablet] 1 - 2 each PO Q4H PRN #15 tablet 10/21/19 [Rx] predniSONE [Prednisone] 20 mg PO ASDIRECTED #15 tablet 10/21/19 [Rx] oxyCODONE HCl/Acetaminophen [Percocet 5-325 mg Tablet] 1 - 2 each PO Q4H PRN #20 tablet 10/30/19 [Rx] Past Medical History HEENT History: Reports: Glaucoma Cardiovascular History: Reports: High Cholesterol, Hypertension, PVD (She had gangrene of the right lower extremity requiring below-knee amputation.) Respiratory History: Reports: Asthma, COPD Genitourinary History: Reports: Chronic Renal Insuffiency, Other (See Below) Other Genitourinary History: decreased kidney function - at 25% as of 07/17/19 [employer] History: Reports: Musculoskeletal History: Reports: Gout Neurological History: Reports: Neuropathy, Diabetic Other Neuro History: "maybe" Psychiatric History: Reports: Addiction, Anxiety, Depression, Psychosis, Suicide Attempt, Suicidal Ideation Endocrine/Metabolic History: Reports: Diabetes, Type II, Obesity/BMI 30+ Hematologic History: Reports: Anemia Immunologic History: Reports: None Oncologic (Cancer) History: Reports: None Dermatologic History: Reports: None - Infectious Disease History Infectious Disease History: Reports: Hepatitis C, MRSA - Past Surgical History HEENT Surgical History: Reports: Oral Surgery GI Surgical History: Reports: Cholecystectomy Female Surgical History: Reports: Section Musculoskeletal Surgical History: Reports: Amputation - History Comment History Comment: Patient has a history of polysubstance abuse particularly methamphetamines in the past. Social & Family History - Family History Family Medical History: Noncontributory - Tobacco Use Smoking Status *Q: Unknown Ever Smoked - Caffeine Use Caffeine Use: Reports: Coffee Other Caffeine Use: 3 cup/day - Living Situation & Occupation Living situation: Reports: Single, Other ([employer]) Occupation: Unemployed Review of Systems - Review of Systems Review Of Systems: See Below Constitutional: Denies: Chills, Diaphoresis, Fever, Weakness, Other Eyes: Reports: Other Ears: Reports: No Symptoms (Does have diabetic retinopathy.) Nose: Reports: No Symptoms Mouth/Throat: Reports: No Symptoms Respiratory: Reports: Shortness of Breath, Wheezing, Cough. Denies: Pleuritic Chest Pain, Sputum, Hemoptysis, Other Cardiovascular: Denies: Chest Pain (Productive.), Edema, Irregular Heart Rate, Lightheadedness, Palpitations GI/Abdominal: Reports: No Symptoms Genitourinary: Reports: Other (Urinary frequency) Musculoskeletal: Reports: Neck Pain (And arm pain), Arm Pain, Back Pain (Neck low back pain), Leg Pain, Other (Left leg pain at present. Sandor below-knee amputation on the right side and she does not use a prosthesis.) Skin: Reports: No Symptoms Neurological: Reports: Numbness, Paresthesia (Diffuse peripheral neuropathy involving all of her extremities.), Tingling, Difficulty Walking, Other. Denies: Seizure Psychiatric: Reports: Depression ED EXAM, GENERAL - Physical Exam Exam: See Below Exam Limited By: No Limitations General Appearance: Alert, WD/WN, Moderate Distress (He needs to move her left leg and rotational twisting movement to try and get relief of the discomfort..) Eye Exam: Bilateral Eye: Normal Inspection, PERRL Throat/Mouth: Normal Inspection, Normal Lips, Normal Oropharynx, Other (Mouth is dry) Head: Atraumatic, Normocephalic ( tongue is dry.), Other (No outward signs of head or facial trauma.) Neck: Supple, Tender Lateral (Tender lateral both sides of her neck.) Respiratory/Chest: No Respiratory Distress ( Osteoarthritis appears to be present), No Accessory Muscle Use, Wheezing (Occasional expiratory wheeze.). No : Lungs Clear, Normal Breath Sounds Cardiovascular: Regular Rate, Rhythm, No Edema, No Gallop, No Murmur, No Rub. No: Normal Peripheral Pulses Peripheral Pulses: 0: Posterior Tibial (L), Dorsalis Pedis (L) GI/Abdominal: Normal Bowel Sounds (No palpable pulses in her left foot and left foot is quite cool to touch. It is of normal color.), Soft, Non-Tender, No Organomegaly, No Abnormal Bruit, No Mass Back Exam: Decreased Range of Motion. No: CVA Tenderness (L), CVA Tenderness (R) Extremities: Other (Low knee amputation on the right side. On the left side she appears to have significant peripheral vascular disease but no gangrene of the toes. Pulses are not palpable in the left foot. There is pain on palpation note musculature particularly the calf and the thigh) Neurological: Alert ( or quadriceps muscles on exam.), Oriented, CN II-XII Intact, Normal Cognition. No: Normal Gait Psychiatric: Flat Affect Skin Exam: Warm, Dry, Intact, Normal Color, No Rash Course - Vital Signs Last Recorded V/S: Last Vital Signs Temp 37.0 C 10/30/19 10:10 Pulse 86 10/30/19 10:10 Resp 16 10/30/19 10:10 BP 120/68 10/30/19 10:10 Pulse Ox 99 10/30/19 10:10 - Orders/Labs/Meds Labs: Laboratory Tests 10/30/19 10/30/19 Range/Units 07:20 07:20 WBC 11.28 H (3.98-10.04) K/mm3 RBC 3.81 L (3.98-5.22) M/mm3 Hgb 9.6 L (11.2-15.7) gm/dl Hct 31.9 L (34.1-44.9) % MCV 83.7 (79.4-94.8) fl MCH 25.2 L (25.6-32.2) pg MCHC 30.1 L (32.2-35.5) g/dl RDW Std Deviation 49.3 H (36.4-46.3) fL Plt Count 453 H (182-369) K/mm3 MPV 9.2 L (9.4-12.3) fl Neut % (Auto) 67.4 (34.0-71.1) % Lymph % (Auto) 22.3 (19.3-51.7) % Pickett % (Auto) 6.2 (4.7-12.5) % Eos % (Auto) 3.5 (0.7-5.8) Baso % (Auto) 0.4 (0.1-1.2) % Neut # (Auto) 7.61 H (1.56-6.13) K/mm3 Lymph # (Auto) 2.51 (1.18-3.74) K/mm3 Pickett # (Auto) 0.70 H (0.24-0.36) K/mm3 Eos # (Auto) 0.40 H (0.04-0.36) K/mm3 Baso # (Auto) 0.04 (0.01-0.08) K/mm3 Manual Slide Review Abnormal smear Sodium 143 (136-145) mEq/L Potassium 4.8 (3.5-5.1) mEq/L Chloride 111 H (98-107) mEq/L Carbon Dioxide 22 (21-32) mEq/L Anion Gap 14.8 (5-15) BUN 37 H (7-18) mg/dL Creatinine 2.6 H (0.55-1.02) mg/dL Est Cr Clr Drug Dosing 25.82 mL/min Estimated GFR (MDRD) 19 (>60) mL/min BUN/Creatinine Ratio 14.2 (14-18) Glucose 137 H (74-106) mg/dL Calcium 7.9 L (8.5-10.1) mg/dL Magnesium 1.8 (1.8-2.4) mg/dl Total Bilirubin 0.3 (0.2-1.0) mg/dL AST 7 L (15-37) U/L ALT 17 (14-59) U/L Alkaline Phosphatase 137 H (46-116) U/L Total Protein 6.7 (6.4-8.2) g/dl Albumin 2.7 L (3.4-5.0) g/dl Globulin 4.0 gm/dL Albumin/Globulin Ratio 0.7 L (1-2) Meds: Medications Discontinued Medications Generic Name Dose Route Start Last Admin Trade Name Brennon PRN Reason Stop Dose Admin Gabapentin 600 mg 10/30/19 07:16 10/30/19 07:39 Neurontin PO 10/30/19 07:17 600 mg ONETIME ONE Administration Hydromorphone HCl 1 mg 10/30/19 07:05 10/30/19 07:25 Dilaudid IVPUSH 10/30/19 07:06 Not Given ONETIME ONE Hydromorphone HCl 1 mg 10/30/19 07:15 10/30/19 07:36 Dilaudid IM 10/30/19 07:16 1 mg ONETIME ONE Administration Sodium Chloride 1,000 mls @ 500 mls/hr 10/30/19 07:15 Normal Saline IV ASDIRECTED KENJI Metoclopramide HCl 10 mg 10/30/19 07:05 10/30/19 07:26 Reglan IVPUSH 10/30/19 07:06 Not Given ONETIME ONE Promethazine HCl 25 mg 10/30/19 07:15 10/30/19 07:36 Phenergan IM 10/30/19 07:16 25 mg ONETIME ONE Administration - Radiology Interpretation Free Text/Narrative:: 49-year-old female presents to the ED with apparent neuropathic pain left lower extremity combined with peripheral vascular disease secondary to diabetes. She has stage IV chronic renal insufficiency and has chronic neuropathic pain in all of her extremities. She is known to abuse drugs apparently methamphetamine in the past. She never provides a urine drug screen so that we can tell if she is intoxicated. At this time she does not appears to be intoxicated. She is appears tired because the leg is kept her up for the last night or 2. Plan IM injection of Dilaudid 1 mg with Phenergan 25 mg IM. Gabapentin 600 mg p.o. will have a CBC with auto differential done. CMP and a magnesium level. - Re-Assessments/Exams Free Text/Narrative Re-Assessment/Exam: 10/30/19 08:04 Hematology reveals a mildly elevated white count 11.28. Auto differential shows 67% neutrophils. Hemoglobin is low at 9.6 hematocrit of 31.9. MCV is 83.7. Platelet count elevated at 453,000. Sodium 143 with a potassium of 4.8. Chloride elevated 111. Bicarb is 22 with an anion gap of 14.8. BUN is 37 with a creatinine of 2.6 GFR is 19 today i.e. stage IV chronic kidney disease. Glucose is 137 calcium 7.9 low magnesium 1.8 normal. Liver function normal total protein 6.7 with a low albumin fraction of 2.7. Therefore no major metabolic abnormalities were identified. She is afebrile with no obvious source of infection. She has not produced a urine sample. 10/30/19 08:07 lab work did not show anything significant. She has stage IV renal disease which makes it impossible to increase her gabapentin dosage for neuropathic pain. Plan will be to discharge her on Percocet tabs 5/325 mg ideally to at bedtime to help sleep due to pain in her left leg from neuropathic, vascular disease. Patient is very close to needing dialysis. 10/30/19 08:14 Patient is now fast asleep after IM analgesia. The nurses had ordered her a breakfast tray but she has not yet eaten it. Tentatively will be discharged to home when she can eat and she is more alert. Departure - Departure Time of Disposition: 09:43 Disposition: Home, Self-Care 01 Condition: Fair Clinical Impression: Neuropathic pain of left lower extremity - Discharge Information *PRESCRIPTION DRUG MONITORING PROGRAM REVIEWED*: Not Applicable *COPY OF PRESCRIPTION DRUG MONITORING REPORT IN PATIENT ROS: Not Applicable Prescriptions: oxyCODONE HCl/Acetaminophen [Percocet 5-325 mg Tablet] 1 - 2 each PO Q4H PRN #20 tablet PRN Reason: pain relief. Referrals: PCP,None [Primary Care Provider] - Forms: ED Department Discharge Additional Instructions: Evaluation in the emergency room this morning in regards to severe pain left lower extremity which appears to be what we call neuropathic pain secondary to diabetic neuropathy. There is also a component of poor blood supply to the lower extremity which we call for vascular disease which are both contributing to the pain syndrome. Given intramuscular medication for pain relief and nausea. At this point time your kidneys are not good enough to tolerate a higher dose of gabapentin. Suggest use of Percocet tabs 5 325 mg ideally 2 at bedtime today help reduce the pain and allow you to sleep. Use 2 tablets every 6 hours if needed for pain relief although primarily should be used at bedtime to avoid addiction. Sepsis Event Note (ED) - Evaluation Sepsis Screening Result: No Definite Risk - Focused Exam Vital Signs: Vital Signs Temp Pulse Resp BP Pulse Ox 10/30/19 10:10 37.0 C 86 16 120/68 99 10/30/19 06:39 36.9 C 86 16 119/61 100
[2019-10-30] MEDS ORDERED: Metoclopramide 10 MG/2 ML SDV IVPUSH ONE (07:05)
[2019-10-30] MEDS ORDERED: HYDROmorphone 1 MG/ML Syringe IVPUSH ONE (07:05)
[2019-10-30] MEDS ORDERED: Sodium Chloride 0.9% 1,000 ML IV SCH (07:15)
[2019-10-30] MEDS ORDERED: HYDROmorphone 1 MG/ML Syringe IM ONE (07:15)
[2019-10-30] MEDS ORDERED: Promethazine 25 MG/ML SDV IM ONE (07:15)
[2019-10-30] MEDS ORDERED: Gabapentin 600 MG Tab PO ONE (07:16)
== END 2019-10-30 10:10 | disposition home or self-care (01) ==
LOC: JD.ED 06:27
DX: E11.42 Type 2 diabetes mellitus with diabetic polyneuropathy (principal); E11.51 Type 2 diabetes mellitus with diabetic peripheral angiopathy without gangrene; I12.9 Hypertensive chronic kidney disease with stage 1 through stage 4 chronic kidney disease, or unspecified chronic kidney disease; N18.4 Chronic kidney disease, stage 4 (severe); J44.9 Chronic obstructive pulmonary disease, unspecified; F41.9 Anxiety disorder, unspecified; F32.9 Major depressive disorder, single episode, unspecified; E11.22 Type 2 diabetes mellitus with diabetic chronic kidney disease; E66.9 Obesity, unspecified; Z68.36 Body mass index [BMI] 36.0-36.9, adult; Z91.013 Allergy to seafood; Z79.4 Long term (current) use of insulin; Z79.899 Other long term (current) drug therapy
CPT/HCPCS: 36415; 80053; 83735; 85025; 96372; 99283; A9270; J1170; J2550

== ENCOUNTER 2019-10-31 10:08 | Emergency (ER) | payer MEDICAID ==
--- NOTE | 2019-10-31 10:46 | EDM.PDOC ---
ED HPI GENERAL MEDICAL PROBLEM - General Chief Complaint: General Stated Complaint: LEG PAIN Time Seen by Provider: 10/31/19 10:28 Source of Information: Reports: Patient History Limitations: Reports: No Limitations - History of Present Illness INITIAL COMMENTS - FREE TEXT/NARRATIVE: The patient presents because she does not feel good. She has left hip pain and shortness of breath. She also has some body aches. She dozes off when I am trying to talk to her. She has no fever or chills. She has no bowel or bladder problems. She was seen here yesterday and there was a complete work up and she was given some percocets for pain. Onset: Gradual Duration: Day(s): Location: Reports: Lower Extremity, Left (hip) Quality: Reports: Sharp Severity: Moderate Improves with: Reports: None Worsens with: Reports: None Associated Symptoms: Reports: Shortness of Breath. Denies: Chest Pain, Cough, Fever/Chills, Headaches, Nausea/Vomiting Left Hip Pain Score (Numeric/FACES): 8 - Related Data Allergies Allergy/AdvReac Type Severity Reaction Status Date / Time shellfish derived Allergy Severe Other Verified 10/31/19 10:24 Home Meds: Home Meds Albuterol [Ventolin HFA] 1 - 2 inh INH Q4HR PRN 05/15/19 [History] DULoxetine HCl [Duloxetine HCl] 60 mg PO DAILY 05/15/19 [History] Mometasone/Formoterol [Dulera 100-5 MCG] 2 inh INH DAILY 05/15/19 [History] Omeprazole 20 mg PO DAILY 05/15/19 [History] lisinopriL [Lisinopril] 40 mg PO DAILY 05/15/19 [History] Insulin Glarg,Human.Rec.Analog [Lantus] 85 unit SUBCUT BIDAC #1700 ml 05/19/19 [Rx] rOPINIRole [Requip] 1 mg PO BID #40 tablet 05/19/19 [Rx] Insulin Lispro [HumaLOG] 0 unit SQ TID 05/28/19 [History] Gabapentin [Neurontin] 600 mg PO TID #60 tab 06/28/19 [Rx] amLODIPine Besylate [Amlodipine Besylate] 10 mg PO DAILY 07/17/19 [History] Orphenadrine [Norflex] 100 mg PO BID PRN #20 tab 08/21/19 [Rx] oxyCODONE HCl/Acetaminophen [Percocet 5-325 mg Tablet] 1 - 2 each PO Q4H PRN #15 tablet 10/21/19 [Rx] predniSONE [Prednisone] 20 mg PO ASDIRECTED #15 tablet 10/21/19 [Rx] oxyCODONE HCl/Acetaminophen [Percocet 5-325 mg Tablet] 1 - 2 each PO Q4H PRN #20 tablet 10/30/19 [Rx] Past Medical History HEENT History: Reports: Glaucoma Cardiovascular History: Reports: High Cholesterol, Hypertension, PVD Respiratory History: Reports: Asthma, COPD Genitourinary History: Reports: Chronic Renal Insuffiency, Other (See Below) Other Genitourinary History: decreased kidney function - at 25% as of 07/17/19 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: Musculoskeletal History: Reports: Gout Neurological History: Reports: Neuropathy, Diabetic Other Neuro History: "maybe" Psychiatric History: Reports: Addiction, Anxiety, Depression, Psychosis, Suicide Attempt, Suicidal Ideation Endocrine/Metabolic History: Reports: Diabetes, Type II, Obesity/BMI 30+ Hematologic History: Reports: Anemia Immunologic History: Reports: None Oncologic (Cancer) History: Reports: None Dermatologic History: Reports: None - Infectious Disease History Infectious Disease History: Reports: Hepatitis C, MRSA - Past Surgical History HEENT Surgical History: Reports: Oral Surgery GI Surgical History: Reports: Cholecystectomy Female Surgical History: Reports: Section Musculoskeletal Surgical History: Reports: Amputation - History Comment History Comment: Patient has a history of polysubstance abuse particularly methamphetamines in the past. Social & Family History - Family History Family Medical History: Noncontributory - Tobacco Use Smoking Status *Q: Unknown Ever Smoked - Caffeine Use Caffeine Use: Reports: None Other Caffeine Use: 3 cup/day - Recreational Drug Use Recreational Drug Use: No - Living Situation & Occupation Living situation: Reports: Single, Other ([employer]) Occupation: Unemployed ED ROS GENERAL - Review of Systems Review Of Systems: See Below Constitutional: Reports: No Symptoms HEENT: Reports: No Symptoms Respiratory: Reports: Shortness of Breath. Denies: Cough Cardiovascular: Reports: No Symptoms Endocrine: Reports: No Symptoms GI/Abdominal: Reports: No Symptoms Musculoskeletal: Reports: Other (Left hip pain) ED EXAM, GENERAL - Physical Exam Exam: See Below Exam Limited By: No Limitations General Appearance: No Apparent Distress, Other (sleepy) Ears: Normal External Exam Nose: Normal Inspection Head: Atraumatic, Normocephalic Neck: Normal Inspection Respiratory/Chest: No Respiratory Distress, Lungs Clear, Normal Breath Sounds Cardiovascular: Regular Rate, Rhythm, No Edema, No Murmur GI/Abdominal: Soft, Non-Tender, No Organomegaly, No Mass Back Exam: Normal Inspection Extremities: Normal Inspection Neurological: Oriented, No Motor/Sensory Deficits, Other (Sleepy) Course - Vital Signs Last Recorded V/S: Last Vital Signs Temp 98.2 F 10/31/19 10:24 Pulse 83 10/31/19 10:24 Resp 14 10/31/19 10:24 BP 136/69 10/31/19 10:24 Pulse Ox 97 10/31/19 10:24 - Re-Assessments/Exams Free Text/Narrative Re-Assessment/Exam: 10/31/19 10:44 Her vital signs and exam are normal. I will discharge her home. Departure - Departure Time of Disposition: 10:45 Disposition: Home, Self-Care 01 Condition: Good Clinical Impression: Left hip pain, Shortness of breath - Discharge Information *PRESCRIPTION DRUG MONITORING PROGRAM REVIEWED*: Not Applicable *COPY OF PRESCRIPTION DRUG MONITORING REPORT IN PATIENT ROS: Not Applicable Referrals: Kurtis Logan MD [Primary Care Provider] - 1 Week Additional Instructions: Take your medications as prescribed. Follow up with Dr Logan. Sepsis Event Note (ED) - Evaluation Sepsis Screening Result: No Definite Risk - Focused Exam Vital Signs: Vital Signs Temp Pulse Resp BP Pulse Ox 10/31/19 10:24 98.2 F 83 14 136/69 97
== END 2019-10-31 11:33 | disposition home or self-care (01) ==
LOC: JD.ED 10:08
DX: M25.552 Pain in left hip (principal); R06.02 Shortness of breath; I12.9 Hypertensive chronic kidney disease with stage 1 through stage 4 chronic kidney disease, or unspecified chronic kidney disease; E11.22 Type 2 diabetes mellitus with diabetic chronic kidney disease; N18.9 Chronic kidney disease, unspecified; E11.51 Type 2 diabetes mellitus with diabetic peripheral angiopathy without gangrene; E11.40 Type 2 diabetes mellitus with diabetic neuropathy, unspecified; F41.9 Anxiety disorder, unspecified; F32.9 Major depressive disorder, single episode, unspecified; E66.9 Obesity, unspecified; Z91.013 Allergy to seafood; Z79.4 Long term (current) use of insulin; Z68.36 Body mass index [BMI] 36.0-36.9, adult; Z79.899 Other long term (current) drug therapy
CPT/HCPCS: 99282; 99284

== ENCOUNTER 2019-11-15 14:09 | Emergency (ER) | payer MEDICAID ==
[2019-11-15] MEDS ORDERED: Ketorolac 30 MG/ML SDV IM ONE (15:07)
--- NOTE | 2019-11-15 15:07 | EDM.PDOC ---
ED HPI GENERAL MEDICAL PROBLEM - General Chief Complaint: Lower Extremity Injury/Pain Stated Complaint: HIP PAIN Time Seen by Provider: 11/15/19 15:03 Source of Information: Reports: Patient History Limitations: Reports: No Limitations - History of Present Illness INITIAL COMMENTS - FREE TEXT/NARRATIVE: The patient is an unfortunate morbidly obese 49-year-old female who presents to the emergency department today with complaint of left hip pain and right shoulder pain. Patient reports that he has a chronic history of osteoarthritis and normally takes Tylenol for osteoarthritis pain or hydrocodone or oxycodone. The patient reports that she was seen this week in the clinic by her PCP who gave her a 10-day course of steroids to see if would help with her osteoarthritis pain patient reports that this does not help so she came to the emergency department today for evaluation. Patient denies any other symptoms pain is worse with range of motion or palpation improved with rest but does not alleviate. Patient also reports that she was recently released 1 week ago from the treatment center here for methamphetamine abuse, the patient reports that after leaving the treatment center she is used methamphetamines multiple times. No fever no chills no cough no congestion no chest pain no shortness of breath Left Hip Pain Score (Numeric/FACES): 6 - Related Data Allergies Allergy/AdvReac Type Severity Reaction Status Date / Time shellfish derived Allergy Severe Other Verified 10/31/19 10:24 Home Meds: Home Meds Albuterol [Ventolin HFA] 1 - 2 inh INH Q4HR PRN 05/15/19 [History] DULoxetine HCl [Duloxetine HCl] 60 mg PO DAILY 05/15/19 [History] Mometasone/Formoterol [Dulera 100-5 MCG] 2 inh INH DAILY 05/15/19 [History] Omeprazole 20 mg PO DAILY 05/15/19 [History] lisinopriL [Lisinopril] 40 mg PO DAILY 05/15/19 [History] Insulin Glarg,Human.Rec.Analog [Lantus] 85 unit SUBCUT BIDAC #1700 ml 05/19/19 [Rx] rOPINIRole [Requip] 1 mg PO BID #40 tablet 05/19/19 [Rx] Insulin Lispro [HumaLOG] 0 unit SQ TID 05/28/19 [History] Gabapentin [Neurontin] 600 mg PO TID #60 tab 06/28/19 [Rx] amLODIPine Besylate [Amlodipine Besylate] 10 mg PO DAILY 07/17/19 [History] Orphenadrine [Norflex] 100 mg PO BID PRN #20 tab 08/21/19 [Rx] oxyCODONE HCl/Acetaminophen [Percocet 5-325 mg Tablet] 1 - 2 each PO Q4H PRN #20 tablet 10/30/19 [Rx] Past Medical History HEENT History: Reports: Glaucoma Cardiovascular History: Reports: High Cholesterol, Hypertension, PVD Respiratory History: Reports: Asthma, COPD Genitourinary History: Reports: Chronic Renal Insuffiency, Other (See Below) Other Genitourinary History: decreased kidney function - at 25% as of 07/17/19 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: Musculoskeletal History: Reports: Gout Neurological History: Reports: Neuropathy, Diabetic Other Neuro History: "maybe" Psychiatric History: Reports: Addiction, Anxiety, Depression, Psychosis, Suicide Attempt, Suicidal Ideation Endocrine/Metabolic History: Reports: Diabetes, Type II, Obesity/BMI 30+ Hematologic History: Reports: Anemia Immunologic History: Reports: None Oncologic (Cancer) History: Reports: None Dermatologic History: Reports: None - Infectious Disease History Infectious Disease History: Reports: Hepatitis C, MRSA - Past Surgical History HEENT Surgical History: Reports: Oral Surgery GI Surgical History: Reports: Cholecystectomy Female Surgical History: Reports: Section Musculoskeletal Surgical History: Reports: Amputation - History Comment History Comment: Patient has a history of polysubstance abuse particularly methamphetamines in the past. Social & Family History - Family History Family Medical History: Noncontributory - Tobacco Use Smoking Status *Q: Current Every Day Smoker Years of Tobacco use: 20 Packs/Tins Daily: 1 - Caffeine Use Caffeine Use: Reports: None Other Caffeine Use: 3 cup/day - Living Situation & Occupation Living situation: Reports: Single, Other ([employer]) Occupation: Unemployed Review of Systems - Review of Systems Review Of Systems: See Below Constitutional: Denies: Chills, Fever Musculoskeletal: Reports: Shoulder Pain, Joint Pain ED EXAM, GENERAL - Physical Exam Exam: See Below Exam Limited By: No Limitations General Appearance: Alert, WD/WN, Anxious, Mild Distress, Obese Respiratory/Chest: No Respiratory Distress, Lungs Clear, Normal Breath Sounds, No Accessory Muscle Use, Chest Non-Tender Cardiovascular: Normal Peripheral Pulses, Regular Rate, Rhythm, No Edema, No Gallop, No JVD, No Murmur, No Rub GI/Abdominal: Normal Bowel Sounds, Soft, Non-Tender, No Organomegaly, No Distention, No Abnormal Bruit, No Mass Extremities: Normal Inspection, Normal Range of Motion, Other (mild Tenderness to right shoulder and left hip) Neurological: Alert, Oriented Skin Exam: Warm, Dry Course - Vital Signs Text/Narrative:: I have discussed with patient that secondary to her chronic opiate abuse and her chronic methamphetamine abuse the utilization of opiates at this time is contraindicated and that the patient should her steroid treatment and treatment with all at home. pt Verbalizes understanding and agrees with treatment plan we will give a shot 1 time of Toradol and discharge patient to home Last Recorded V/S: Last Vital Signs Temp 98.0 F 11/15/19 14:55 Pulse 94 11/15/19 14:55 Resp 16 11/15/19 14:55 BP 124/67 11/15/19 14:55 Pulse Ox 97 11/15/19 14:55 Departure - Departure Time of Disposition: 15:06 Disposition: Home, Self-Care 01 Clinical Impression: Left hip pain Right shoulder pain Qualifiers: Chronicity: acute Qualified Code(s): M25.511 - Pain in right shoulder - Discharge Information *PRESCRIPTION DRUG MONITORING PROGRAM REVIEWED*: No *COPY OF PRESCRIPTION DRUG MONITORING REPORT IN PATIENT ROS: No Referrals: Kurtis Logan MD [Primary Care Provider] - Additional Instructions: Home, rest, Tylenol as needed for pain, return as needed for any worsening condition Sepsis Event Note (ED) - Evaluation Sepsis Screening Result: No Definite Risk - Focused Exam Vital Signs: Vital Signs Temp Pulse Resp BP Pulse Ox 11/15/19 14:55 98.0 F 94 16 124/67 97
== END 2019-11-15 15:15 | disposition home or self-care (01) ==
LOC: JD.ED 14:09
DX: M25.552 Pain in left hip (principal); M25.511 Pain in right shoulder; E11.51 Type 2 diabetes mellitus with diabetic peripheral angiopathy without gangrene; E66.9 Obesity, unspecified; F41.9 Anxiety disorder, unspecified; F32.9 Major depressive disorder, single episode, unspecified; I12.9 Hypertensive chronic kidney disease with stage 1 through stage 4 chronic kidney disease, or unspecified chronic kidney disease; E11.22 Type 2 diabetes mellitus with diabetic chronic kidney disease; N18.9 Chronic kidney disease, unspecified; E11.40 Type 2 diabetes mellitus with diabetic neuropathy, unspecified; J44.9 Chronic obstructive pulmonary disease, unspecified; F17.210 Nicotine dependence, cigarettes, uncomplicated; Z91.013 Allergy to seafood; Z79.4 Long term (current) use of insulin; Z79.899 Other long term (current) drug therapy
CPT/HCPCS: 96372; 99283; J1885

== ENCOUNTER 2019-12-03 18:05 | Emergency (ER) | payer MEDICAID ==
[2019-12-03] MEDS ORDERED: Alum Hydrox/Mag Hydrox/Simeth 30 ML, Lidocaine 2% 15 ML PO ONE ×2 (18:30)
--- NOTE | 2019-12-03 18:38 | EDM.PDOC ---
<Alonzo Cabezas - Last Filed: 12/03/19 18:33> ED HPI GENERAL MEDICAL PROBLEM - General Chief Complaint: General Stated Complaint: [facility] Time Seen by Provider: 12/03/19 18:22 Source of Information: Reports: Patient History Limitations: Reports: Altered Mental Status (Difficult to arouse. ) - History of Present Illness INITIAL COMMENTS - FREE TEXT/NARRATIVE: Ms. Raymundo is a 49 YO female that presents to the ED with an altered mental status and complaint of burning epigastric pain. Pain began eight days ago and has been progressively worsening. Rated at a 7 out of 10. Radiation to the back at the same level. Other complaints are dizziness and shortness of breath. Denies nausea, vomiting, diarrhea, constipation. Onset: Gradual Onset Date: 11/25/19 Duration: Day(s):, Getting Worse Location: Reports: Abdomen Quality: Reports: Burning Middle Chest Pain Score (Numeric/FACES): 4 - Related Data Allergies Allergy/AdvReac Type Severity Reaction Status Date / Time shellfish derived Allergy Severe Other Verified 12/03/19 18:12 Home Meds: Home Meds Albuterol [Ventolin HFA] 1 - 2 inh INH Q4HR PRN 05/15/19 [History] DULoxetine HCl [Duloxetine HCl] 60 mg PO DAILY 05/15/19 [History] Mometasone/Formoterol [Dulera 100-5 MCG] 2 inh INH DAILY 05/15/19 [History] Omeprazole 20 mg PO DAILY 05/15/19 [History] lisinopriL [Lisinopril] 40 mg PO DAILY 05/15/19 [History] Insulin Glarg,Human.Rec.Analog [Lantus] 85 unit SUBCUT BIDAC #1700 ml 05/19/19 [Rx] rOPINIRole [Requip] 1 mg PO BID #40 tablet 05/19/19 [Rx] Insulin Lispro [HumaLOG] 0 unit SQ TID 05/28/19 [History] Gabapentin [Neurontin] 600 mg PO TID #60 tab 06/28/19 [Rx] amLODIPine Besylate [Amlodipine Besylate] 10 mg PO DAILY 07/17/19 [History] Orphenadrine [Norflex] 100 mg PO BID PRN #20 tab 08/21/19 [Rx] oxyCODONE HCl/Acetaminophen [Percocet 5-325 mg Tablet] 1 - 2 each PO Q4H PRN #20 tablet 10/30/19 [Rx] Past Medical History HEENT History: Reports: Glaucoma Cardiovascular History: Reports: High Cholesterol, Hypertension, PVD Respiratory History: Reports: Asthma, COPD Genitourinary History: Reports: Chronic Renal Insuffiency, Other (See Below) Other Genitourinary History: decreased kidney function - at 25% as of 07/17/19 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: Musculoskeletal History: Reports: Gout Neurological History: Reports: Neuropathy, Diabetic Other Neuro History: "maybe" Psychiatric History: Reports: Addiction, Anxiety, Depression, Psychosis, Suicide Attempt, Suicidal Ideation Endocrine/Metabolic History: Reports: Diabetes, Type II, Obesity/BMI 30+ Hematologic History: Reports: Anemia - Infectious Disease History Infectious Disease History: Reports: Hepatitis C, MRSA - Past Surgical History HEENT Surgical History: Reports: Oral Surgery GI Surgical History: Reports: Cholecystectomy Female Surgical History: Reports: Section Musculoskeletal Surgical History: Reports: Amputation - History Comment History Comment: Patient has a history of polysubstance abuse particularly methamphetamines in the past. Social & Family History - Family History Family Medical History: Noncontributory - Caffeine Use Caffeine Use: Reports: None Other Caffeine Use: 3 cup/day - Recreational Drug Use Recreational Drug Use: Yes Drug Use in Last 12 Months: Yes Recreational Drug Type: Reports: Methamphetamine (States last use was 2 days ago.) - Living Situation & Occupation Living situation: Reports: Single, Other ([employer]) Occupation: Unemployed ED ROS GENERAL - Review of Systems Review Of Systems: See Below Respiratory: Reports: Shortness of Breath GI/Abdominal: Reports: Abdominal Pain. Denies: Constipation, Diarrhea, Nausea, Vomiting Neurological: Reports: Dizziness ED EXAM, GENERAL - Physical Exam Exam: See Below Exam Limited By: Altered Mental Status (Difficult to arouse.) General Appearance: Lethargic Eye Exam: Bilateral Eye: PERRL (1mm bilaterally. ) Throat/Mouth: No Airway Compromise Head: Atraumatic, Normocephalic Respiratory/Chest: No Respiratory Distress, Lungs Clear, Normal Breath Sounds, No Accessory Muscle Use Cardiovascular: Regular Rate, Rhythm, No Gallop, No Murmur, No Rub GI/Abdominal: Normal Bowel Sounds, Soft, Non-Tender, No Distention Extremities: Other (Below knee amputation of right leg. ) Neurological: Slow to Respond Skin Exam: Warm, Dry, Intact, Normal Color Departure - Departure Disposition: Home, Self-Care 01 Clinical Impression: Elevated serum creatinine, Dehydration Uncontrolled diabetes mellitus Qualifiers: Diabetes mellitus type: type 2 Glycemic state: with hyperglycemia Qualified Code(s): E11.65 - Type 2 diabetes mellitus with hyperglycemia - Discharge Information Instructions: Type 2 Diabetes Mellitus, Self Care, Adult, [id number] Forms: ED Department Discharge Additional Instructions: You were evaluated in the ER today regarding your chest pain, and upper abdominal pain. Laboratory evaluation demonstrated that your creatinine is elevated, which is suggestive of dehydration, and worsening kidney issues regarding your diabetes. Your blood sugar was also elevated, which is suggestive of uncontrolled diabetes mellitus. You were given IV fluids, and subcutaneous insulin at today's visit for management of this. Other laboratory evaluation demonstrates you are not suffering from any sort of myocardial infarction at today's visit. Please try to keep yourself well-hydrated and eat some good meals over the next couple days, please try to refrain from methamphetamine use. Please continue to take your regular medications as previously prescribed as well. Recommend you follow-up with your primary care provider, sometime in the next few days for re-evaluation and further management if warranted. Sepsis Event Note (ED) - Evaluation Sepsis Screening Result: No Definite Risk <Flor Alatorre - Last Filed: 12/03/19 21:11> EKG INTERPRETATION EKG Date: 12/03/19 Time: 18:29 Rhythm: NSR Rate (Beats/Min): 93 [place]: Normal P-Wave: Present (First-degree AV block) QRS: Normal ST-T: Normal QT: Normal Comparison: No Change EKG Interpretation Comments: No obvious ischemia or acute ST changes noted, reviewed by myself and Dr. Amin. Course - Vital Signs Last Recorded V/S: Last Vital Signs Temp 97.7 F 12/03/19 18:09 Pulse 94 12/03/19 18:09 Resp 22 H 12/03/19 18:09 BP 147/67 H 12/03/19 18:09 Pulse Ox 95 12/03/19 18:09 - Orders/Labs/Meds Orders: Active Orders 24 hr Category Date Time Status EKG Documentation Completion [RC] STAT Care 12/03/19 18:21 Active POC Glucose [Blood Glucose Check, Bedside] [RC] ONETIME Care 12/03/19 19:36 Active Peripheral IV Care [RC] . DIRECTED Care 12/03/19 19:34 Active Chest 1V Frontal [CR] Stat Exams 12/03/19 18:21 Taken Insulin Regular, Human [HumuLIN R] Med 12/04/19 19:35 Once 12 unit SUBCUT ONETIME ONE Sodium Chloride 0.9% [Saline Flush] Med 12/03/19 19:34 Active 10 ml FLUSH ASDIRECTED PRN Peripheral IV Insertion Adult [OM.PC] Stat Oth 12/03/19 19:34 Ordered Medication Orders Insulin Human Regular (Humulin R) 12 unit SUBCUT ONETIME ONE Stop: 12/04/19 19:36 Last Admin: 12/03/19 19:51 Dose: 12 unit Documented by: YVETTE Sodium Chloride (Saline Flush) 10 ml FLUSH ASDIRECTED PRN PRN Reason: Keep Vein Open Last Admin: 12/03/19 19:51 Dose: 10 ml Documented by: YVETTE Labs: Laboratory Tests 12/03/19 12/03/19 Range/Units 18:50 21:01 Sodium 134 L (136-145) mEq/L Potassium 4.7 (3.5-5.1) mEq/L Chloride 102 (98-107) mEq/L Carbon Dioxide 19 L (21-32) mEq/L Anion Gap 17.7 H (5-15) BUN 39 H (7-18) mg/dL Creatinine 3.6 H (0.55-1.02) mg/dL Est Cr Clr Drug Dosing TNP Estimated GFR (MDRD) 13 (>60) mL/min BUN/Creatinine Ratio 10.8 L (14-18) Glucose 437 H (74-106) mg/dL POC Glucose 344 H (70-105) mg/dL Calcium 8.2 L (8.5-10.1) mg/dL Magnesium 1.8 (1.8-2.4) mg/dl Total Bilirubin 0.3 (0.2-1.0) mg/dL AST 9 L (15-37) U/L ALT 19 (14-59) U/L Alkaline Phosphatase 136 H (46-116) U/L Troponin I < 0.017 (0.00-0.056) ng/mL Total Protein 6.9 (6.4-8.2) g/dl Albumin 2.7 L (3.4-5.0) g/dl Globulin 4.2 gm/dL Albumin/Globulin Ratio 0.6 L (1-2) Meds: Medications Generic Name Dose Route Start Last Admin Trade Name Brennon PRN Reason Stop Dose Admin Insulin Human Regular 12 unit 12/04/19 19:35 12/03/19 19:51 Humulin R SUBCUT 12/04/19 19:36 12 unit ONETIME ONE Administration Sodium Chloride 10 ml 12/03/19 19:34 12/03/19 19:51 Saline Flush FLUSH 10 ml ASDIRECTED PRN Administration Keep Vein Open Discontinued Medications Generic Name Dose Route Start Last Admin Trade Name Freq PRN Reason Stop Dose Admin Al Hydroxide/Mg Hydroxide 30 0 ml 12/03/19 18:30 12/03/19 18:48 ml/ Lidocaine HCl 15 ml PO 12/03/19 18:31 45 ml ONETIME ONE Administration Sodium Chloride 1,000 mls @ 999 mls/hr 12/03/19 19:34 12/03/19 19:51 Normal Saline IV 12/03/19 20:34 999 mls/hr ONETIME ONE Administration Insulin Human Regular Confirm 12/03/19 19:44 12/03/19 19:52 Humulin R Administered 12/03/19 19:45 Not Given Dose 300 unit .ROUTE .STK-MED ONE - Re-Assessments/Exams Free Text/Narrative Re-Assessment/Exam: 12/03/19 19:00 I have read and reviewed the student's HPI and examined the patient and agree with ÁNGEL Cage-student. EKG, chest x-ray, CMP, magnesium and a troponin be obtained to rule out cardiac etiology, patient is well-known to this ER for visiting for multiple different complaints. It appears that she may have gone into meth again. EKG demonstrated no sign of any obvious acute ST abnormalities. This was over read by myself and Dr. Amin. 12/03/19 20:59 There is no sign of cardiac etiology from today's visit. Labs demonstrated an increased creatinine from normal for her, and a decreased GFR, elevated blood sugar, patient was given a bag of IV fluids, 12 units of subcutaneous insulin, and a recheck of her blood sugar showed that it was 344. It is obvious that the patient is not taking care of herself at home, and has been using methamphetamines again. Nonetheless the IV fluids and insulin should help, and she does have all of the resources she needs at home and states she does have medications at home to correct blood sugars. Patient will be discharged home with general recommendations. She was sleeping, but easily arousable at time of recheck, this is common for her presentation, patient states she is feeling better and wants to go home. Departure - Departure Time of Disposition: 21:01 Condition: Good - Discharge Information *PRESCRIPTION DRUG MONITORING PROGRAM REVIEWED*: No *COPY OF PRESCRIPTION DRUG MONITORING REPORT IN PATIENT ROS: No Sepsis Event Note (ED) - Focused Exam Vital Signs: Vital Signs Temp Pulse Resp BP Pulse Ox 12/03/19 18:09 97.7 F 94 22 H 147/67 H 95 - My Orders Last 24 Hours: My Active Orders 12/03/19 18:21 EKG Documentation Completion [RC] STAT Chest 1V Frontal [CR] Stat 12/03/19 19:34 Peripheral IV Care [RC] . DIRECTED Sodium Chloride 0.9% [Saline Flush] 10 ml FLUSH ASDIRECTED PRN Peripheral IV Insertion Adult [OM.PC] Stat 12/03/19 19:36 POC Glucose [Blood Glucose Check, Bedside] [RC] ONETIME 12/04/19 19:35 Insulin Regular, Human [HumuLIN R] 12 unit SUBCUT ONETIME ONE - Assessment/Plan Last 24 Hours: My Active Orders 12/03/19 18:21 EKG Documentation Completion [RC] STAT Chest 1V Frontal [CR] Stat 12/03/19 19:34 Peripheral IV Care [RC] . DIRECTED Sodium Chloride 0.9% [Saline Flush] 10 ml FLUSH ASDIRECTED PRN Peripheral IV Insertion Adult [OM.PC] Stat 12/03/19 19:36 POC Glucose [Blood Glucose Check, Bedside] [RC] ONETIME 12/04/19 19:35 Insulin Regular, Human [HumuLIN R] 12 unit SUBCUT ONETIME ONE
[2019-12-03] MEDS ORDERED: Sodium Chloride 0.9% 10 ML Syringe FLUSH PRN (19:34)
[2019-12-03] MEDS ORDERED: Sodium Chloride 0.9% 1,000 ML IV ONE (19:34)
[2019-12-03] MEDS ORDERED: Insulin Regular, Human 100 Units/ML 3 ML Vial ONE (19:44)
--- NOTE | 2019-12-04 09:23 | CR ---
Chest: Portable view of the chest was obtained. Comparison: Previous chest x-ray of 05/14/19. Heart size and mediastinum are within normal limits. Lungs are clear with no acute parenchymal change. Bony structures are grossly intact. Impression: 1. Nothing acute is seen on portable chest x-ray. Diagnostic code #1 This report was dictated in MDT
[2019-12-04] MEDS ORDERED: Insulin Regular, Human 100 Units/ML 3 ML Vial SUBCUT ONE (19:35)
== END 2019-12-03 22:14 | disposition home or self-care (01) ==
LOC: JD.ED 18:05
DX: E11.65 Type 2 diabetes mellitus with hyperglycemia (principal); R79.89 Other specified abnormal findings of blood chemistry; E86.0 Dehydration; I12.9 Hypertensive chronic kidney disease with stage 1 through stage 4 chronic kidney disease, or unspecified chronic kidney disease; N18.9 Chronic kidney disease, unspecified; J44.9 Chronic obstructive pulmonary disease, unspecified; M10.9 Gout, unspecified; E11.40 Type 2 diabetes mellitus with diabetic neuropathy, unspecified; F41.9 Anxiety disorder, unspecified; F32.9 Major depressive disorder, single episode, unspecified; E66.9 Obesity, unspecified; E11.22 Type 2 diabetes mellitus with diabetic chronic kidney disease; Z91.013 Allergy to seafood
CPT/HCPCS: 36415; 71045; 80053; 82962; 83735; 84484; 93005; 96360; 96361; 99285; A9270; J7030; 93010; 99284

== ENCOUNTER 2019-12-15 20:01 | Emergency (ER) | payer MEDICAID ==
--- NOTE | 2019-12-15 20:28 | EDM.PDOC ---
ED HPI GENERAL MEDICAL PROBLEM - General Chief Complaint: Chest Pain Stated Complaint: [facility] Time Seen by Provider: 12/15/19 20:11 Source of Information: Reports: Patient History Limitations: Reports: Uncooperative (The patient preferred to nap than answer questions) - History of Present Illness INITIAL COMMENTS - FREE TEXT/NARRATIVE: Ms. Raymundo is a 49-year-old woman with a past medical history significant for methamphetamine addiction and a right BKA, wheelchair-bound, who is now brought to the ED by EMS with a complaint of chest pain. She states that she was kicked out of her niece's residence where she had been staying, today. She states that she was pushing herself backwards up a hill, when she developed sharp sudden- onset chest pain that came on gradually (her words) just to the left of her sternum. She points with one finger to indicate the site. She states that it ripples down her entire body, and is associated with a cold sweat, but no dy spnea, nausea, or sense of impending doom. EMS gave the patient 4 baby aspirin, which she states helped with the pain. She states that the pain is now resolving. She denies prior similar symptoms. Here in the ED, the patient is found to be hemodynamically stable, afebrile, saturating 98% on room air. When asked if the patient has had any recent fever, chills, sore throat, ear pain, nasal or sinus congestion, cough, dyspnea, palpitations, nausea, vomiting, constipation, diarrhea, abdominal pain, urinary symptoms, recent weight gain or weight loss, recent bloody bowel movements or black bowel movements, recent joint aches, headaches, or rashes, she replied "a little bit of everything". The patient's PCP is Dr. Kurtis Logan. Middle Chest Pain Score (Numeric/FACES): 6 - Related Data Allergies Allergy/AdvReac Type Severity Reaction Status Date / Time shellfish derived Allergy Severe Other Verified 12/15/19 20:10 Home Meds: Home Meds Albuterol [Ventolin HFA] 1 - 2 inh INH Q4HR PRN 05/15/19 [History] DULoxetine HCl [Duloxetine HCl] 60 mg PO DAILY 05/15/19 [History] Mometasone/Formoterol [Dulera 100-5 MCG] 2 inh INH DAILY 05/15/19 [History] Omeprazole 20 mg PO DAILY 05/15/19 [History] lisinopriL [Lisinopril] 40 mg PO DAILY 05/15/19 [History] Insulin Glarg,Human.Rec.Analog [Lantus] 85 unit SUBCUT BIDAC #1700 ml 05/19/19 [Rx] rOPINIRole [Requip] 1 mg PO BID #40 tablet 05/19/19 [Rx] Insulin Lispro [HumaLOG] 0 unit SQ TID 05/28/19 [History] Gabapentin [Neurontin] 600 mg PO TID #60 tab 06/28/19 [Rx] amLODIPine Besylate [Amlodipine Besylate] 10 mg PO DAILY 07/17/19 [History] Orphenadrine [Norflex] 100 mg PO BID PRN #20 tab 08/21/19 [Rx] oxyCODONE HCl/Acetaminophen [Percocet 5-325 mg Tablet] 1 - 2 each PO Q4H PRN #20 tablet 10/30/19 [Rx] Past Medical History HEENT History: Reports: Glaucoma Cardiovascular History: Reports: Hypertension Respiratory History: Reports: COPD (supected, not tested) Genitourinary History: Reports: Chronic Renal Insuffiency Musculoskeletal History: Reports: Gout (suspected, not tested) Neurological History: Reports: Neuropathy, Diabetic Psychiatric History: Reports: Addiction (methamphetamine), Anxiety, Depression Endocrine/Metabolic History: Reports: Diabetes, Type II, Obesity/BMI 30+ Hematologic History: Reports: Anemia - Infectious Disease History Infectious Disease History: Reports: Hepatitis C (untreated) - Past Surgical History HEENT Surgical History: Reports: Oral Surgery (dental extractions) GI Surgical History: Reports: Cholecystectomy (early ) Musculoskeletal Surgical History: Reports: Amputation (right BKA) Social & Family History - Family History Family Medical History: Noncontributory - Tobacco Use Smoking Status *Q: Current Every Day Smoker Years of Tobacco use: 38 Packs/Tins Daily: 1 - Caffeine Use Caffeine Use: Reports: Coffee Other Caffeine Use: 3 cup/day - Alcohol Use Alcohol Use History: No - Recreational Drug Use Recreational Drug Use: Yes Drug Use in Last 12 Months: Yes Recreational Drug Type: Reports: Methamphetamine (injects) - Living Situation & Occupation Living situation: Reports: Single, Other (Currently homeless) Occupation: Unemployed ED ROS GENERAL - Review of Systems Review Of Systems: Comprehensive ROS is negative, except as noted in HPI. ED EXAM, GENERAL - Physical Exam Exam: See Below Exam Limited By: No Limitations General Appearance: Alert, WD/WN, No Apparent Distress Eye Exam: Bilateral Eye: EOMI, Normal Inspection Ears: Normal External Exam, Hearing Grossly Normal Nose: Normal Inspection Throat/Mouth: Normal Inspection, Normal Lips, Normal Voice, No Airway Compromise Head: Atraumatic, Normocephalic Neck: Normal Inspection, Full Range of Motion Respiratory/Chest: No Respiratory Distress, Lungs Clear, Normal Breath Sounds, No Accessory Muscle Use, Other (Reproducible tenderness to palpation just left of the sternum) Cardiovascular: Normal Peripheral Pulses, Regular Rate, Rhythm, No Gallop, No JVD, No Murmur, No Rub Peripheral Pulses: 3+: Radial (L), Radial (R) GI/Abdominal: Normal Bowel Sounds, Soft, Non-Tender, No Organomegaly, No Distention, No Abnormal Bruit, No Mass (Female) Exam: Deferred Rectal (Female) Exam: Deferred Back Exam: Normal Inspection, Full Range of Motion Extremities: Normal Capillary Refill, Other (Right BKA) Neurological: Oriented, Normal Cognition, No Motor/Sensory Deficits Psychiatric: Normal Affect Skin Exam: Warm, Dry, Intact, Normal Color, No Rash EKG INTERPRETATION EKG Date: 12/15/19 Time: 20:43 Rhythm: NSR Rate (Beats/Min): 89 Sears: Normal P-Wave: Present QRS: Other (Early transition) ST-T: Normal QT: Normal Comparison: Change From Previous EKG (There was a 1st degree AVB and no early transition on 12/03/2019) Course - Vital Signs Last Recorded V/S: Last Vital Signs Temp 36.9 C 12/15/19 20:06 Pulse 92 12/15/19 20:06 Resp 18 12/15/19 20:06 BP 96/70 12/15/19 20:06 Pulse Ox 98 12/15/19 20:06 - Orders/Labs/Meds Labs: Laboratory Tests 12/15/19 12/15/19 12/15/19 Range/Units 20:25 20:25 20:25 WBC 11.34 H (3.98-10.04) K/mm3 RBC 4.04 (3.98-5.22) M/mm3 Hgb 10.2 L (11.2-15.7) gm/dl Hct 32.7 L (34.1-44.9) % MCV 80.9 (79.4-94.8) fl MCH 25.2 L (25.6-32.2) pg MCHC 31.2 L (32.2-35.5) g/dl RDW Std Deviation 43.3 (36.4-46.3) fL Plt Count 463 H (182-369) K/mm3 MPV 9.2 L (9.4-12.3) fl Neutrophils % (Manual) 60 (40-60) % Band Neutrophils % 1 (0-10) % Lymphocytes % (Manual) 26 (20-40) % Atypical Lymphs % 0 % Monocytes % (Manual) 4 (2-10) % Eosinophils % (Manual) 6 H (0.7-5.8) % Basophils % (Manual) 3 H (0.1-1.2) Platelet Estimate Adequate RBC Morph Comment Normal D-Dimer, Quantitative 0.48 (0.19-0.50) mg/L Sodium 140 (136-145) mEq/L Potassium 4.6 (3.5-5.1) mEq/L Chloride 105 (98-107) mEq/L Carbon Dioxide 22 (21-32) mEq/L Anion Gap 17.6 H (5-15) BUN 36 H (7-18) mg/dL Creatinine 2.8 H (0.55-1.02) mg/dL Est Cr Clr Drug Dosing 23.98 mL/min Estimated GFR (MDRD) 18 (>60) mL/min BUN/Creatinine Ratio 12.9 L (14-18) Glucose 289 H (74-106) mg/dL Calcium 8.4 L (8.5-10.1) mg/dL Total Bilirubin 0.2 (0.2-1.0) mg/dL AST 9 L (15-37) U/L ALT 18 (14-59) U/L Alkaline Phosphatase 143 H (46-116) U/L Troponin I < 0.017 (0.00-0.056) ng/mL Total Protein 7.1 (6.4-8.2) g/dl Albumin 2.7 L (3.4-5.0) g/dl Globulin 4.4 gm/dL Albumin/Globulin Ratio 0.6 L (1-2) Urine Opiates Screen (OJVGGS=502) Ur Buprenorphine Scrn (CUTOFF=10) Ur Oxycodone Screen (KIC2AW=667) Urine Methadone Screen (JNTMYU=176) Ur Propoxyphene Screen (TUIMJF=327) Ur Barbiturates Screen (CAQHHH=626) Ur Tricyclics Screen (XHLYLB=137) Ur Phencyclidine Scrn (CUTOFF=25) Ur Amphetamine Screen (FGHSWM=995) U Methamphetamines Scrn (YLWDGO=724) U Benzodiazepines Scrn (PVGHKI=338) U Cocaine Metab Screen (LXNBAQ=182) U Marijuana (THC) Screen (CUTOFF=50) 12/15/19 Range/Units 22:00 WBC (3.98-10.04) K/mm3 RBC (3.98-5.22) M/mm3 Hgb (11.2-15.7) gm/dl Hct (34.1-44.9) % MCV (79.4-94.8) fl MCH (25.6-32.2) pg MCHC (32.2-35.5) g/dl RDW Std Deviation (36.4-46.3) fL Plt Count (182-369) K/mm3 MPV (9.4-12.3) fl Neutrophils % (Manual) (40-60) % Band Neutrophils % (0-10) % Lymphocytes % (Manual) (20-40) % Atypical Lymphs % % Monocytes % (Manual) (2-10) % Eosinophils % (Manual) (0.7-5.8) % Basophils % (Manual) (0.1-1.2) Platelet Estimate RBC Morph Comment D-Dimer, Quantitative (0.19-0.50) mg/L Sodium (136-145) mEq/L Potassium (3.5-5.1) mEq/L Chloride (98-107) mEq/L Carbon Dioxide (21-32) mEq/L Anion Gap (5-15) BUN (7-18) mg/dL Creatinine (0.55-1.02) mg/dL Est Cr Clr Drug Dosing mL/min Estimated GFR (MDRD) (>60) mL/min BUN/Creatinine Ratio (14-18) Glucose (74-106) mg/dL Calcium (8.5-10.1) mg/dL Total Bilirubin (0.2-1.0) mg/dL AST (15-37) U/L ALT (14-59) U/L Alkaline Phosphatase (46-116) U/L Troponin I (0.00-0.056) ng/mL Total Protein (6.4-8.2) g/dl Albumin (3.4-5.0) g/dl Globulin gm/dL Albumin/Globulin Ratio (1-2) Urine Opiates Screen Negative (QDRTTX=500) Ur Buprenorphine Scrn Negative (CUTOFF=10) Ur Oxycodone Screen Negative (RBS2UY=632) Urine Methadone Screen Negative (ZNNROF=667) Ur Propoxyphene Screen Negative (HFAUXR=319) Ur Barbiturates Screen Negative (SFTSDM=477) Ur Tricyclics Screen Negative (WXPTWA=960) Ur Phencyclidine Scrn Negative (CUTOFF=25) Ur Amphetamine Screen Presumptive positive H (HFYIHD=328) U Methamphetamines Scrn Presumptive positive H (ATSRYS=149) U Benzodiazepines Scrn Negative (BSYTXK=923) U Cocaine Metab Screen Negative (JCTNQY=342) U Marijuana (THC) Screen Negative (CUTOFF=50) - Re-Assessments/Exams Free Text/Narrative Re-Assessment/Exam: 12/15/19 20:23 As above, the patient states that she developed a sharp pain to a discrete area just left of her sternum while pushing herself up a hill backwards in her wheelchair, likely a couple of hours ago. Her pain is reproducible with direct palpation. My suspicion of a cardiac etiology is very low, however, I have ordered a work-up that includes blood work, a chest x-ray, and an ECG. She also states that she would like housing placement, since she was kicked out of her niece's residence earlier today, but also states that her brother may have bought or will be buying her a bus ticket to the [place] airport - I will leave that part to her nurse. 12/15/19 21:02 Two-view chest radiograph reviewed. The cardiac silhouette is within normal limits. No pulmonary vascular congestion. No pleural effusions. No focal infiltrate, although there is increased lung density, although this may be due to a poor inspiratory effort. No pneumothorax. Formal read per the Radiologist pending. 12/15/19 21:08 The patient's CBC is remarkable for WBC count mildly elevated at 11.34, but with only 1% bandemia. Her H/H is mildly depressed at 10.2/32.7, and her platelets are mildly elevated at 463,000, with the remainder of her CBC being unremarkable. Her CMP is remarkable for an anion gap mildly elevated at 17.6, but with a bicarbonate normal at 22. Her BUN/Cr are elevated at 36/2.8, and her blood glucose is elevated to 289. Her alkaline phosphatase is elevated at 143, with the remainder of her CMP being unremarkable. Her troponin is undetectably low. Her D-dimer is within normal limits at 0.48. The patient has not yet provided a urine sample for the urine drug screen. 12/16/19 00:32 The patient's urine drug screen has returned positive for both amphetamine and methamphetamine, and is otherwise negative. 12/16/19 00:34 The situation was discussed with Laura MCGHEE. Because the patient is apparently homeless, we will keep her here in the ED overnight, then have director social welfare help figure out placement in the morning. 12/16/19 08:22 nutrition services assistant has met with the patient and they do not believe they can find any housing for the patient. She has apparently made herself not welcome at all local facilities, apparently by using methamphetamine on their premises. The patient, however, is agreeable to getting a bus ticket to either [place] or [place]. nutrition services assistant will make those arrangements. Departure - Departure Time of Disposition: 08:23 Disposition: Home, Self-Care 01 Condition: Good Clinical Impression: Non-cardiac chest pain, Homeless, Methamphetamine addiction - Discharge Information *PRESCRIPTION DRUG MONITORING PROGRAM REVIEWED*: Not Applicable *COPY OF PRESCRIPTION DRUG MONITORING REPORT IN PATIENT ROS: Not Applicable Instructions: Nonspecific Chest Pain, Adult, [id number], Finding Treatment for Addiction Referrals: Kurtsi Logan MD [Physician] - Forms: ED Department Discharge Additional Instructions: You were seen in the emergency room after developing chest pain. Work-up in the ER included blood work, a urine drug screen, a chest x-ray, and an ECG. Your work-up found that your blood glucose was elevated at 289, and your urine drug screen was positive for methamphetamine. The remainder of your work-up was unremarkable. You have not suffered a heart attack. You do not have a blood clot in your lungs. You do not have pneumonia or a collapsed lung. Arrangements have been made for you to go to either [place] or [place]. Once there, we recommend that you establish a primary care physician. We also recommend that you seek professional help with respect to your continued methamphetamine use. If any other problems, please do not hesitate to return to the ER. Sepsis Event Note (ED) - Evaluation Sepsis Screening Result: No Definite Risk
--- NOTE | 2019-12-15 20:52 | CR ---
Chest: 2 views of the chest were obtained. Comparison: Previous chest x-ray of 12/03/19. Slightly limited inspiratory effort is seen. This causes some increased lung markings on both sides. Lungs otherwise are grossly clear. Heart size and mediastinum are normal. Bony structures shows scattered disc space narrowing with in the spine with minimal endplate osteophytes. Impression: 1. Limited inspiratory study. Within this limitation, nothing acute is definitely seen. Diagnostic code #2 This report was dictated in MDT
== END 2019-12-16 10:20 | disposition home or self-care (01) ==
LOC: JD.ED 20:01
DX: R07.9 Chest pain, unspecified (principal); F15.20 Other stimulant dependence, uncomplicated; Z59.0 Homelessness; J44.9 Chronic obstructive pulmonary disease, unspecified; E66.9 Obesity, unspecified; F41.9 Anxiety disorder, unspecified; F32.9 Major depressive disorder, single episode, unspecified; E11.40 Type 2 diabetes mellitus with diabetic neuropathy, unspecified; F17.210 Nicotine dependence, cigarettes, uncomplicated; I12.9 Hypertensive chronic kidney disease with stage 1 through stage 4 chronic kidney disease, or unspecified chronic kidney disease; E11.22 Type 2 diabetes mellitus with diabetic chronic kidney disease; N18.9 Chronic kidney disease, unspecified; Z91.013 Allergy to seafood; Z90.49 Acquired absence of other specified parts of digestive tract; Z89.511 Acquired absence of right leg below knee
CPT/HCPCS: 36415; 71046; 71046-26; 80053; 80306; 84484; 85007; 85027; 85379; 93005; 93010; 99283; 99285-25

== ENCOUNTER 2020-01-03 16:38 | Emergency (ER) | payer MEDICAID ==
[2020-01-03] MEDS ORDERED: Ondansetron 4 MG/2 ML SDV IVPUSH ONE (17:35)
[2020-01-03] MEDS ORDERED: Sodium Chloride 0.9% 10 ML Syringe FLUSH PRN (17:35)
[2020-01-03] MEDS ORDERED: Alum Hydrox/Mag Hydrox/Simeth 30 ML, Lidocaine 2% 15 ML PO ONE ×2 (17:36)
[2020-01-03] MEDS ORDERED: Sodium Chloride 0.9% 1,000 ML IV SCH (17:45)
--- NOTE | 2020-01-03 17:57 | EDM.PDOC ---
ED HPI GENERAL MEDICAL PROBLEM - General Chief Complaint: Abdominal Pain Stated Complaint: [facility] Time Seen by Provider: 01/03/20 17:30 Source of Information: Reports: Patient History Limitations: Reports: No Limitations - History of Present Illness INITIAL COMMENTS - FREE TEXT/NARRATIVE: Patient is a 49-year-old female who presents to the emergency department with complaints of abdominal pain, nausea with no vomiting, and an area of swelling in her left arm. She states that the symptoms of abdominal pain began yesterday. She has had no vomiting but feels like she could vomit. Patient is a type II diabetic noncompliant with her medications. Blood sugar in the ambulance was 449. She is a chronic IV meth user. States yesterday she injected meth intravenously into her left inner wrist. She has an area of swelling to that site at this time. States she does not think she was in the vein. She denies any fever, chills, or diarrhea. Patient has history of previous cholecystectomy. She does still have her appendix, however denies any right lower quadrant abdominal pain. States that she just wants to make her stomach feel better and then she wants to go home. She did agree to lab work, IV fluids, and urinalysis. - Related Data Allergies Allergy/AdvReac Type Severity Reaction Status Date / Time shellfish derived Allergy Severe Other Verified 01/03/20 16:46 Home Meds: Home Meds Albuterol [Ventolin HFA] 1 - 2 inh INH Q4HR PRN 05/15/19 [History] DULoxetine HCl [Duloxetine HCl] 60 mg PO DAILY 05/15/19 [History] Mometasone/Formoterol [Dulera 100-5 MCG] 2 inh INH DAILY 05/15/19 [History] Omeprazole 20 mg PO DAILY 05/15/19 [History] lisinopriL [Lisinopril] 40 mg PO DAILY 05/15/19 [History] Insulin Glarg,Human.Rec.Analog [Lantus] 85 unit SUBCUT BIDAC #1700 ml 05/19/19 [Rx] rOPINIRole [Requip] 1 mg PO BID #40 tablet 05/19/19 [Rx] Insulin Lispro [HumaLOG] 0 unit SQ TID 05/28/19 [History] Gabapentin [Neurontin] 600 mg PO TID #60 tab 06/28/19 [Rx] amLODIPine Besylate [Amlodipine Besylate] 10 mg PO DAILY 07/17/19 [History] Orphenadrine [Norflex] 100 mg PO BID PRN #20 tab 08/21/19 [Rx] oxyCODONE HCl/Acetaminophen [Percocet 5-325 mg Tablet] 1 - 2 each PO Q4H PRN #20 tablet 10/30/19 [Rx] Past Medical History HEENT History: Reports: Glaucoma Cardiovascular History: Reports: Hypertension Respiratory History: Reports: COPD Genitourinary History: Reports: Chronic Renal Insuffiency Other Genitourinary History: decreased kidney function - at 25% as of 07/17/19 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: Musculoskeletal History: Reports: Gout Neurological History: Reports: Neuropathy, Diabetic Other Neuro History: "maybe" Psychiatric History: Reports: Addiction, Anxiety, Depression Endocrine/Metabolic History: Reports: Diabetes, Type II, Obesity/BMI 30+ Hematologic History: Reports: Anemia Immunologic History: Reports: None Oncologic (Cancer) History: Reports: None Dermatologic History: Reports: None - Infectious Disease History Infectious Disease History: Reports: Hepatitis C (untreated) - Past Surgical History HEENT Surgical History: Reports: Oral Surgery GI Surgical History: Reports: Cholecystectomy Musculoskeletal Surgical History: Reports: Amputation - History Comment History Comment: Patient has a history of polysubstance abuse particularly methamphetamines in the past. Social & Family History - Family History Family Medical History: Noncontributory - Tobacco Use Smoking Status *Q: Current Every Day Smoker Years of Tobacco use: 30 Packs/Tins Daily: 1 - Caffeine Use Caffeine Use: Reports: None Other Caffeine Use: 3 cup/day - Recreational Drug Use Recreational Drug Use: Yes Drug Use in Last 12 Months: Yes Recreational Drug Type: Reports: Methamphetamine - Living Situation & Occupation Living situation: Reports: Single, Other (Currently homeless) Occupation: Unemployed ED ROS GENERAL - Review of Systems Review Of Systems: Comprehensive ROS is negative, except as noted in HPI. ED EXAM, GI/ABD - Physical Exam Exam: See Below Exam Limited By: No Limitations General Appearance: Alert, WD/WN, No Apparent Distress Respiratory/Chest: No Respiratory Distress, Lungs Clear, Normal Breath Sounds, No Accessory Muscle Use, Chest Non-Tender Cardiovascular: Normal Peripheral Pulses, Regular Rate, Rhythm, No Edema, No Gallop, No JVD, No Murmur, No Rub GI/Abdominal Exam: Normal Bowel Sounds, Soft, No Organomegaly, No Distention, No Abnormal Bruit, No Mass, Pelvis Stable, Tender (epigastric) Neurological: Alert, Oriented, CN II-XII Intact, Normal Cognition, Normal Gait, Normal Reflexes, No Motor/Sensory Deficits Psychiatric: Normal Affect, Normal Mood Skin Exam: Other (Numerous scars scattered throughout inner arms r/t IV meth use. Edema noted to left inner wrist.) Course - Vital Signs Last Recorded V/S: Last Vital Signs Temp 96.5 F L 01/03/20 16:44 Pulse 90 01/03/20 16:44 Resp 16 01/03/20 16:44 BP 135/66 01/03/20 16:44 Pulse Ox 98 01/03/20 16:44 - Orders/Labs/Meds Labs: Laboratory Tests 01/03/20 01/03/20 Range/Units 17:55 17:55 WBC 11.71 H (3.98-10.04) K/mm3 RBC 4.52 (3.98-5.22) M/mm3 Hgb 11.4 (11.2-15.7) gm/dl Hct 36.7 (34.1-44.9) % MCV 81.2 (79.4-94.8) fl MCH 25.2 L (25.6-32.2) pg MCHC 31.1 L (32.2-35.5) g/dl RDW Std Deviation 45.0 (36.4-46.3) fL Plt Count 518 H (182-369) K/mm3 MPV 9.3 L (9.4-12.3) fl Neut % (Auto) 75.0 H (34.0-71.1) % Lymph % (Auto) 16.0 L (19.3-51.7) % Bates % (Auto) 5.3 (4.7-12.5) % Eos % (Auto) 2.7 (0.7-5.8) Baso % (Auto) 0.8 (0.1-1.2) % Neut # (Auto) 8.79 H (1.56-6.13) K/mm3 Lymph # (Auto) 1.87 (1.18-3.74) K/mm3 Bates # (Auto) 0.62 H (0.24-0.36) K/mm3 Eos # (Auto) 0.32 (0.04-0.36) K/mm3 Baso # (Auto) 0.09 H (0.01-0.08) K/mm3 Manual Slide Review Normal smear Sodium 134 L (136-145) mEq/L Potassium 4.5 (3.5-5.1) mEq/L Chloride 103 (98-107) mEq/L Carbon Dioxide 19 L (21-32) mEq/L Anion Gap 16.5 H (5-15) BUN 24 H (7-18) mg/dL Creatinine 2.4 H (0.55-1.02) mg/dL Est Cr Clr Drug Dosing TNP Estimated GFR (MDRD) 21 (>60) mL/min BUN/Creatinine Ratio 10.0 L (14-18) Glucose 400 H (74-106) mg/dL Calcium 8.8 (8.5-10.1) mg/dL Total Bilirubin 0.3 (0.2-1.0) mg/dL AST 7 L (15-37) U/L ALT 19 (14-59) U/L Alkaline Phosphatase 159 H (46-116) U/L C-Reactive Protein 3.4 H* (<1.0) mg/dL Total Protein 7.6 (6.4-8.2) g/dl Albumin 2.8 L (3.4-5.0) g/dl Globulin 4.8 gm/dL Albumin/Globulin Ratio 0.6 L (1-2) Lipase 97 (73-393) U/L Meds: Medications Discontinued Medications Generic Name Dose Route Start Last Admin Trade Name Freq PRN Reason Stop Dose Admin Al Hydroxide/Mg Hydroxide 30 0 ml 01/03/20 17:36 01/03/20 17:56 ml/ Lidocaine HCl 15 ml PO 01/03/20 17:37 45 ml ONETIME ONE Administration Sodium Chloride 1,000 mls @ 999 mls/hr 01/03/20 17:45 01/03/20 18:03 Normal Saline IV 999 mls/hr ASDIRECTED KENJI Administration Ondansetron HCl 4 mg 01/03/20 17:35 01/03/20 18:04 Zofran IVPUSH 01/03/20 17:36 4 mg ONETIME ONE Administration Sodium Chloride 10 ml 01/03/20 17:35 01/03/20 18:03 Saline Flush FLUSH 10 ml ASDIRECTED PRN Administration Keep Vein Open - Re-Assessments/Exams Free Text/Narrative Re-Assessment/Exam: 01/03/20 18:40 I have been notified by nursing staff that patient wishes to sign out AMA. Lab results and urinalysis are pending but she does not wish to pursue further treatment. AMA documentation has been completed. Departure - Departure Time of Disposition: 18:40 Disposition: Against Medical Advice 07 Clinical Impression: Abdominal pain Qualifiers: Abdominal location: epigastric Qualified Code(s): R10.13 - Epigastric pain - Discharge Information Referrals: PCP,None [Primary Care Provider] - Forms: ED Department Discharge Sepsis Event Note (ED) - Evaluation Sepsis Screening Result: No Definite Risk
== END 2020-01-03 19:30 | disposition left against medical advice (07) ==
LOC: JD.ED 16:38
DX: R10.13 Epigastric pain (principal); J44.9 Chronic obstructive pulmonary disease, unspecified; I12.9 Hypertensive chronic kidney disease with stage 1 through stage 4 chronic kidney disease, or unspecified chronic kidney disease; E11.22 Type 2 diabetes mellitus with diabetic chronic kidney disease; N18.9 Chronic kidney disease, unspecified; E66.9 Obesity, unspecified; F41.9 Anxiety disorder, unspecified; F32.9 Major depressive disorder, single episode, unspecified; E11.40 Type 2 diabetes mellitus with diabetic neuropathy, unspecified; F17.210 Nicotine dependence, cigarettes, uncomplicated; Z91.013 Allergy to seafood; Z79.4 Long term (current) use of insulin; Z79.899 Other long term (current) drug therapy
CPT/HCPCS: 36415; 80053; 83690; 85025; 86140; 96361; 96374; 99284; A9270; J2405; J7030; 99283

== ENCOUNTER 2020-01-05 22:02 | Emergency (ER) | payer MEDICAID ==
[2020-01-05] MEDS ORDERED: Ondansetron 4 MG/2 ML SDV IVPUSH PRN (22:40)
[2020-01-05] MEDS ORDERED: Sodium Chloride 0.9% 1,000 ML IV SCH (22:45)
[2020-01-05] MEDS ORDERED: Ondansetron 4 MG Tab.DIS PO ONE (23:18)
[2020-01-05] MEDS ORDERED: Morphine 2 MG/ML SYRINGE IM ONE (23:49)
--- NOTE | 2020-01-05 23:52 | EDM.PDOC ---
ED HPI GENERAL MEDICAL PROBLEM - General Chief Complaint: Gastrointestinal Problem Stated Complaint: [facility] Time Seen by Provider: 01/05/20 22:21 Source of Information: Reports: Patient, RN Notes Reviewed - History of Present Illness INITIAL COMMENTS - FREE TEXT/NARRATIVE: 49 yr old female has come in by ambulance for eval of abd pain, nausea. She was here 2 days ago for similar sx, left AMA before labs were back. Pain is upper mid abd. No vomiting but has been nauseated. Diabetic. Not sure what sugars are doing. No cough, fever or difficulty breathing. Generalized Pain Score (Numeric/FACES): 6 - Related Data Allergies Allergy/AdvReac Type Severity Reaction Status Date / Time shellfish derived Allergy Severe Other Verified 01/03/20 16:46 Home Meds: Home Meds Albuterol [Ventolin HFA] 1 - 2 inh INH Q4HR PRN 05/15/19 [History] DULoxetine HCl [Duloxetine HCl] 60 mg PO DAILY 05/15/19 [History] Mometasone/Formoterol [Dulera 100-5 MCG] 2 inh INH DAILY 05/15/19 [History] Omeprazole 20 mg PO DAILY 05/15/19 [History] lisinopriL [Lisinopril] 40 mg PO DAILY 05/15/19 [History] Insulin Glarg,Human.Rec.Analog [Lantus] 85 unit SUBCUT BIDAC #1700 ml 05/19/19 [Rx] rOPINIRole [Requip] 1 mg PO BID #40 tablet 05/19/19 [Rx] Insulin Lispro [HumaLOG] 0 unit SQ TID 05/28/19 [History] Gabapentin [Neurontin] 600 mg PO TID #60 tab 06/28/19 [Rx] amLODIPine Besylate [Amlodipine Besylate] 10 mg PO DAILY 07/17/19 [History] Orphenadrine [Norflex] 100 mg PO BID PRN #20 tab 08/21/19 [Rx] Past Medical History HEENT History: Reports: Glaucoma Cardiovascular History: Reports: Hypertension Respiratory History: Reports: COPD Genitourinary History: Reports: Chronic Renal Insuffiency Other Genitourinary History: decreased kidney function - at 25% as of 07/17/19 [employer] History: Reports: Musculoskeletal History: Reports: Gout Neurological History: Reports: Neuropathy, Diabetic Other Neuro History: "maybe" Psychiatric History: Reports: Addiction, Anxiety, Depression Endocrine/Metabolic History: Reports: Diabetes, Type II, Obesity/BMI 30+ Hematologic History: Reports: Anemia Immunologic History: Reports: None Oncologic (Cancer) History: Reports: None Dermatologic History: Reports: None - Infectious Disease History Infectious Disease History: Reports: Hepatitis C (untreated) - Past Surgical History HEENT Surgical History: Reports: Oral Surgery GI Surgical History: Reports: Cholecystectomy Musculoskeletal Surgical History: Reports: Amputation - History Comment History Comment: Patient has a history of polysubstance abuse particularly methamphetamines in the past. Social & Family History - Family History Family Medical History: Noncontributory - Tobacco Use Smoking Status *Q: Current Every Day Smoker Years of Tobacco use: 28 Packs/Tins Daily: 1 - Caffeine Use Caffeine Use: Reports: Soda Other Caffeine Use: 3 cup/day - Recreational Drug Use Recreational Drug Type: Reports: Methamphetamine Other Recreational Drug Type: last used early this a.m. - Living Situation & Occupation Living situation: Reports: Single, Other (Currently homeless) Occupation: Unemployed ED ROS GENERAL - Review of Systems Review Of Systems: See Below Constitutional: Denies: Fever, Chills, Diaphoresis HEENT: Reports: No Symptoms Respiratory: Denies: Shortness of Breath, Cough Cardiovascular: Denies: Chest Pain GI/Abdominal: Reports: Abdominal Pain, Nausea. Denies: Diarrhea, Vomiting Musculoskeletal: Reports: No Symptoms Skin: Denies: Rash Neurological: Reports: No Symptoms ED EXAM, GI/ABD - Physical Exam Exam: See Below General Appearance: Alert, No Apparent Distress Eyes: Bilateral: Normal Appearance Head: Atraumatic Neck: Supple Respiratory/Chest: No Respiratory Distress, Lungs Clear, Normal Breath Sounds Cardiovascular: Regular Rate, Rhythm GI/Abdominal Exam: Soft, Tender (mild upper mid abd tenderness, lower abd soft, nontender). No: Guarding, Rebound Back Exam: No: CVA Tenderness (L), CVA Tenderness (R) Extremities: Other (R BKA) Neurological: Alert, No Motor/Sensory Deficits Skin Exam: Warm, Dry, No Rash Course - Vital Signs Last Recorded V/S: Last Vital Signs Temp 97.0 F 01/05/20 22:10 Pulse 90 01/06/20 00:05 Resp 16 01/06/20 00:05 BP 150/81 H 01/06/20 00:05 Pulse Ox 99 01/06/20 00:05 - Orders/Labs/Meds Orders: Active Orders 24 hr Category Date Time Status Abdomen 2V AP Flat Upright [CR] Stat Exams 01/05/20 23:21 Stop Req Labs: Laboratory Tests 01/05/20 01/05/20 01/05/20 Range/Units 22:42 22:42 22:42 WBC 13.43 H (3.98-10.04) K/mm3 RBC 4.47 (3.98-5.22) M/mm3 Hgb 11.3 (11.2-15.7) gm/dl Hct 35.8 (34.1-44.9) % MCV 80.1 (79.4-94.8) fl MCH 25.3 L (25.6-32.2) pg MCHC 31.6 L (32.2-35.5) g/dl RDW Std Deviation 44.0 (36.4-46.3) fL Plt Count 554 H (182-369) K/mm3 MPV 9.4 (9.4-12.3) fl Neut % (Auto) 68.4 (34.0-71.1) % Lymph % (Auto) 21.7 (19.3-51.7) % [place] % (Auto) 5.7 (4.7-12.5) % Eos % (Auto) 3.4 (0.7-5.8) Baso % (Auto) 0.5 (0.1-1.2) % Neut # (Auto) 9.18 H (1.56-6.13) K/mm3 Lymph # (Auto) 2.91 (1.18-3.74) K/mm3 [place] # (Auto) 0.77 H (0.24-0.36) K/mm3 Eos # (Auto) 0.46 H (0.04-0.36) K/mm3 Baso # (Auto) 0.07 (0.01-0.08) K/mm3 Manual Slide Review Abnormal smear Sodium 133 L (136-145) mEq/L Potassium 4.3 (3.5-5.1) mEq/L Chloride 103 (98-107) mEq/L Carbon Dioxide 20 L (21-32) mEq/L Anion Gap 14.3 (5-15) BUN 23 H (7-18) mg/dL Creatinine 2.5 H (0.55-1.02) mg/dL Est Cr Clr Drug Dosing 26.86 mL/min Estimated GFR (MDRD) 20 (>60) mL/min BUN/Creatinine Ratio 9.2 L (14-18) Glucose 257 H (74-106) mg/dL POC Glucose (70-105) mg/dL Calcium 8.6 (8.5-10.1) mg/dL Total Bilirubin 0.2 (0.2-1.0) mg/dL AST 11 L (15-37) U/L ALT 17 (14-59) U/L Alkaline Phosphatase 159 H (46-116) U/L Total Protein 7.9 (6.4-8.2) g/dl Albumin 2.8 L (3.4-5.0) g/dl Globulin 5.1 gm/dL Albumin/Globulin Ratio 0.6 L (1-2) Ethyl Alcohol 0.00 (0.00) gm% 01/05/20 Range/Units 22:42 WBC (3.98-10.04) K/mm3 RBC (3.98-5.22) M/mm3 Hgb (11.2-15.7) gm/dl Hct (34.1-44.9) % MCV (79.4-94.8) fl MCH (25.6-32.2) pg MCHC (32.2-35.5) g/dl RDW Std Deviation (36.4-46.3) fL Plt Count (182-369) K/mm3 MPV (9.4-12.3) fl Neut % (Auto) (34.0-71.1) % Lymph % (Auto) (19.3-51.7) % [place] % (Auto) (4.7-12.5) % Eos % (Auto) (0.7-5.8) Baso % (Auto) (0.1-1.2) % Neut # (Auto) (1.56-6.13) K/mm3 Lymph # (Auto) (1.18-3.74) K/mm3 [place] # (Auto) (0.24-0.36) K/mm3 Eos # (Auto) (0.04-0.36) K/mm3 Baso # (Auto) (0.01-0.08) K/mm3 Manual Slide Review Sodium (136-145) mEq/L Potassium (3.5-5.1) mEq/L Chloride (98-107) mEq/L Carbon Dioxide (21-32) mEq/L Anion Gap (5-15) BUN (7-18) mg/dL Creatinine (0.55-1.02) mg/dL Est Cr Clr Drug Dosing mL/min Estimated GFR (MDRD) (>60) mL/min BUN/Creatinine Ratio (14-18) Glucose (74-106) mg/dL POC Glucose 227 H (70-105) mg/dL Calcium (8.5-10.1) mg/dL Total Bilirubin (0.2-1.0) mg/dL AST (15-37) U/L ALT (14-59) U/L Alkaline Phosphatase (46-116) U/L Total Protein (6.4-8.2) g/dl Albumin (3.4-5.0) g/dl Globulin gm/dL Albumin/Globulin Ratio (1-2) Ethyl Alcohol (0.00) gm% Meds: Medications Discontinued Medications Generic Name Dose Route Start Last Admin Trade Name Freq PRN Reason Stop Dose Admin Sodium Chloride 1,000 mls @ 999 mls/hr 01/05/20 22:45 Normal Saline IV ONETIME KENJI Morphine Sulfate 2 mg 01/05/20 23:49 01/05/20 23:54 Morphine IM 01/05/20 23:50 2 mg ONETIME ONE Administration Ondansetron HCl 4 mg 01/05/20 22:40 Zofran IVPUSH Q8H PRN Nausea Ondansetron HCl 4 mg 01/05/20 23:18 01/05/20 23:24 Zofran Odt PO 01/05/20 23:19 4 mg ONETIME ONE Administration - Re-Assessments/Exams Free Text/Narrative Re-Assessment/Exam: 01/06/20 01:27 Nausea better after zofran 4 mg ODT. Glucose 227, 257, She states she will take insulin when she gets home, requesting something for pain, have given morphine 2 mg IM. Departure - Departure Time of Disposition: 23:50 Disposition: Home, Self-Care 01 Condition: Fair Clinical Impression: Abdominal pain - Discharge Information Instructions: Abdominal Pain, Adult Referrals: Kurtis Logan MD [Primary Care Provider] - Forms: ED Department Discharge Additional Instructions: Clear liquids and bland diet as tolerated. Your glucose is 257, take a small dose of sliding scale insulin when you get home. Follow up with your regular medical provider as needed. Sepsis Event Note (ED) - Evaluation Sepsis Screening Result: No Definite Risk - Focused Exam Vital Signs: Vital Signs Temp Pulse Resp BP Pulse Ox 01/06/20 00:05 90 16 150/81 H 99 01/05/20 22:10 97.0 F 99 20 130/83 98 - My Orders Last 24 Hours: My Active Orders 01/05/20 23:21 Abdomen 2V AP Flat Upright [CR] Stat - Assessment/Plan Last 24 Hours: My Active Orders 01/05/20 23:21 Abdomen 2V AP Flat Upright [CR] Stat
== END 2020-01-06 00:07 | disposition home or self-care (01) ==
LOC: JD.ED 22:02 → SUPCPDRO 22:02 → JD.ED 01-06 00:07
DX: R10.10 Upper abdominal pain, unspecified (principal); R11.0 Nausea; J44.9 Chronic obstructive pulmonary disease, unspecified; I12.9 Hypertensive chronic kidney disease with stage 1 through stage 4 chronic kidney disease, or unspecified chronic kidney disease; E11.22 Type 2 diabetes mellitus with diabetic chronic kidney disease; N18.9 Chronic kidney disease, unspecified; F17.210 Nicotine dependence, cigarettes, uncomplicated; E11.40 Type 2 diabetes mellitus with diabetic neuropathy, unspecified; F41.9 Anxiety disorder, unspecified; F32.9 Major depressive disorder, single episode, unspecified; E66.9 Obesity, unspecified; Z90.49 Acquired absence of other specified parts of digestive tract; Z79.4 Long term (current) use of insulin; Z91.013 Allergy to seafood; Z79.899 Other long term (current) drug therapy; Z68.36 Body mass index [BMI] 36.0-36.9, adult
CPT/HCPCS: 36415; 80053; 80307; 82962; 85025; 96372; 99284; A9270; J2270; 99283

== ENCOUNTER 2020-01-06 18:20 | Emergency (ER) | payer MEDICAID, OTHER ==
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
[2020-01-06] MEDS ORDERED: Ondansetron 4 MG/2 ML SDV IVPUSH ONE (19:11)
[2020-01-06] MEDS ORDERED: HYDROmorphone 1 MG/ML Syringe IVPUSH ONE (19:11)
[2020-01-06] MEDS ORDERED: LORazepam 2 MG/ML SDV IV ONE (19:14)
[2020-01-06] MEDS ORDERED: Sodium Chloride 0.9% 1,000 ML IV SCH (19:15)
--- NOTE | 2020-01-06 20:19 | CR ---
Left wrist: 4 views of the left wrist were obtained. Comparison: No previous study. Soft tissue swelling is identified. No acute fracture, dislocation or other bony abnormality is appreciated. Impression: 1. Soft tissue swelling. No acute bony abnormality is identified. Diagnostic code #2 This report was dictated in MDT
[2020-01-06] MEDS ORDERED: Levofloxacin 250 MG Tab PO ONE (21:31)
[2020-01-06] MEDS ORDERED: DULoxetine 30 MG Cap PO ONE (22:34)
[2020-01-06] MEDS ORDERED: Aluminum Hydroxide/Magnesium Hydroxide/Simethicone Susp 30 ML Cup PO ONE (22:35)
[2020-01-06] MEDS ORDERED: amLODIPine 10 MG Tab PO ONE (22:36)
[2020-01-06] MEDS ORDERED: Gabapentin 600 MG Tab PO ONE (23:00)
[2020-01-07] MEDS ORDERED: Gabapentin 600 MG Tab PO ONE (22:34)
== END 2020-01-06 23:40 ==
LOC: JD.ED 18:20
DX: S60.212A Contusion of left wrist, initial encounter (principal); E11.65 Type 2 diabetes mellitus with hyperglycemia; E87.1 Hypo-osmolality and hyponatremia; F15.90 Other stimulant use, unspecified, uncomplicated; N39.0 Urinary tract infection, site not specified; J44.9 Chronic obstructive pulmonary disease, unspecified; I12.9 Hypertensive chronic kidney disease with stage 1 through stage 4 chronic kidney disease, or unspecified chronic kidney disease; E11.22 Type 2 diabetes mellitus with diabetic chronic kidney disease; N18.9 Chronic kidney disease, unspecified; F41.9 Anxiety disorder, unspecified; F32.9 Major depressive disorder, single episode, unspecified; E11.40 Type 2 diabetes mellitus with diabetic neuropathy, unspecified; E66.9 Obesity, unspecified; Z68.37 Body mass index [BMI] 37.0-37.9, adult; R42 Dizziness and giddiness; M54.2 Cervicalgia; G89.29 Other chronic pain; M54.5 Low back pain; Z89.512 Acquired absence of left leg below knee; Z91.013 Allergy to seafood; Z79.899 Other long term (current) drug therapy; Z79.4 Long term (current) use of insulin; Y04.0XXA Assault by unarmed brawl or fight, initial encounter
CPT/HCPCS: 36415; 73110; 80307; 82009; 82553; 82728; 83615; 83735; 83880; 84484; 85610; 85730; 86140; 87086; 96361; 96374; 96375; 99285; A9270; J1170; J2060; J2405; J7030

== ENCOUNTER 2020-01-12 13:33 | Emergency (ER) | payer MEDICAID, OTHER ==
[2020-01-12] MEDS ORDERED: Ibuprofen 600 MG Tab PO ONE (16:03)
--- NOTE | 2020-01-12 16:28 | US ---
Left wrist ultrasound: Multiple real-time images of the left inner wrist were obtained. Hypoechoic area seen within the inner wrist showing increased vascularity. This does not appear to be fluid with nothing seen at this time to indicate drainable abscess. This may represent a focal cellulitis and please correlate if patient has any correlating clinical symptoms. This measures 3.2 x 0.9 x 1.5 cm. Impression: 1. Finding within the inner left wrist as described above. Diagnostic code #3 This report was dictated in MDT
--- NOTE | 2020-01-12 17:03 | EDM.PDOC ---
ED HPI GENERAL MEDICAL PROBLEM - General Chief Complaint: Upper Extremity Injury/Pain Stated Complaint: L ARM PAIN Time Seen by Provider: 01/12/20 15:20 Source of Information: Reports: Patient History Limitations: Reports: No Limitations - History of Present Illness INITIAL COMMENTS - FREE TEXT/NARRATIVE: Patient is a 49-year-old female who presents to the emergency department after being sent here from the [facility] clinic. There is concerned that she may have an abscess in her left wrist that needs to be drained. She was started on doxycycline on 08 January and she continues to complain of pressure and pain to the area. The area has not increased in size, however she does not feel that it has decreased either. She denies any fever, chills, nausea, or vomiting. Patient does have a history of IV meth use. States that the infection occurred from her injecting methamphetamine into the veins in that area. Left Wrist Pain Score (Numeric/FACES): 10 - Related Data Allergies Allergy/AdvReac Type Severity Reaction Status Date / Time shellfish derived Allergy Severe Other Verified 01/12/20 14:42 Home Meds: Home Meds Albuterol [Ventolin HFA] 1 - 2 inh INH Q4HR PRN 05/15/19 [History] Mometasone/Formoterol [Dulera 100-5 MCG] 2 inh INH DAILY 05/15/19 [History] Omeprazole 20 mg PO DAILY 05/15/19 [History] lisinopriL [Lisinopril] 40 mg PO DAILY 05/15/19 [History] Insulin Lispro [HumaLOG] 0 unit SQ TID 05/28/19 [History] Alum Hydrox/Mag Hydrox/Simeth [Maalox Advanced] 15 ml PO Q6H PRN #1 bottle 01/06/20 [Rx] DULoxetine [Cymbalta] 90 mg PO DAILY #30 cap 01/06/20 [Rx] Gabapentin [Neurontin] 600 mg PO TID #90 tab 01/06/20 [Rx] Ibuprofen 400 mg PO Q6HR 01/06/20 [History] Insulin Glarg,Human.Rec.Analog [Lantus] 80 unit SUBCUT BIDAC 01/06/20 [History] Mag Hydrox/Aluminum Hyd/Simeth [Mylanta Maximum Strength Liq] 15 ml PO Q4HR PRN 01/06/20 [History] Nitrofurantoin Monohyd/M-Cryst [Macrobid 100 mg Capsule] 100 mg PO BID #12 capsule 01/06/20 [Rx] Tiotropium [Spiriva HandiHaler] 18 mcg INH DAILY 01/06/20 [History] amLODIPine [Norvasc] 10 mg PO DAILY #30 tab 01/06/20 [Rx] Doxycycline [Doxycycline Monohydrate] 0 mg PO BID 01/12/20 [History] Past Medical History HEENT History: Reports: Glaucoma Cardiovascular History: Reports: Hypertension Respiratory History: Reports: COPD Genitourinary History: Reports: Chronic Renal Insuffiency Other Genitourinary History: decreased kidney function - at 25% as of 07/17/19 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: Musculoskeletal History: Reports: Amputation, Gout Neurological History: Reports: Neuropathy, Diabetic Other Neuro History: "maybe" Psychiatric History: Reports: Addiction, Anxiety, Depression Endocrine/Metabolic History: Reports: Diabetes, Type II, Obesity/BMI 30+, Vitamin D Deficiency Hematologic History: Reports: Anemia Immunologic History: Reports: None Oncologic (Cancer) History: Reports: None Dermatologic History: Reports: None - Infectious Disease History Infectious Disease History: Reports: Hepatitis C, MRSA - Past Surgical History HEENT Surgical History: Reports: Oral Surgery GI Surgical History: Reports: Cholecystectomy Musculoskeletal Surgical History: Reports: Amputation - History Comment History Comment: Patient has a history of polysubstance abuse particularly methamphetamines in the past. Social & Family History - Family History Family Medical History: Noncontributory - Tobacco Use Smoking Status *Q: Current Every Day Smoker Years of Tobacco use: 30 Packs/Tins Daily: 1 - Caffeine Use Caffeine Use: Reports: Coffee, Soda Other Caffeine Use: 3 cup/day - Recreational Drug Use Recreational Drug Use: Yes Recreational Drug Type: Reports: Methamphetamine - Living Situation & Occupation Living situation: Reports: Single, Other (Currently homeless) Occupation: Unemployed Review of Systems - Review of Systems Review Of Systems: Comprehensive ROS is negative, except as noted in HPI. ED EXAM, GENERAL - Physical Exam Exam: See Below Exam Limited By: No Limitations General Appearance: Alert, WD/WN, No Apparent Distress Respiratory/Chest: No Respiratory Distress, Lungs Clear, Normal Breath Sounds, No Accessory Muscle Use, Chest Non-Tender Cardiovascular: Normal Peripheral Pulses, Regular Rate, Rhythm, No Edema, No Gallop, No JVD, No Murmur, No Rub Extremities: Other (3 cm area of induration to the left inner wrist. Redness and swelling does not extend beyond this area.) Neurological: Alert, Oriented, CN II-XII Intact, Normal Cognition, Normal Gait, Normal Reflexes, No Motor/Sensory Deficits Course - Vital Signs Last Recorded V/S: Last Vital Signs Temp 97.7 F 01/12/20 14:40 Pulse 86 01/12/20 14:40 Resp 18 01/12/20 14:40 BP 153/88 H 01/12/20 14:40 Pulse Ox 99 01/12/20 14:40 - Orders/Labs/Meds Labs: Laboratory Tests 01/12/20 01/12/20 Range/Units 15:40 15:40 WBC 11.40 H (3.98-10.04) K/mm3 RBC 3.78 L (3.98-5.22) M/mm3 Hgb 9.5 L D (11.2-15.7) gm/dl Hct 30.7 L (34.1-44.9) % MCV 81.2 (79.4-94.8) fl MCH 25.1 L (25.6-32.2) pg MCHC 30.9 L (32.2-35.5) g/dl RDW Std Deviation 44.2 (36.4-46.3) fL Plt Count 439 H D (182-369) K/mm3 MPV 9.5 (9.4-12.3) fl Neut % (Auto) 69.5 (34.0-71.1) % Lymph % (Auto) 21.1 (19.3-51.7) % [place] % (Auto) 5.2 (4.7-12.5) % Eos % (Auto) 2.9 (0.7-5.8) Baso % (Auto) 0.4 (0.1-1.2) % Neut # (Auto) 7.92 H (1.56-6.13) K/mm3 Lymph # (Auto) 2.41 (1.18-3.74) K/mm3 [place] # (Auto) 0.59 H (0.24-0.36) K/mm3 Eos # (Auto) 0.33 (0.04-0.36) K/mm3 Baso # (Auto) 0.05 (0.01-0.08) K/mm3 Manual Slide Review Abnormal smear Sodium 133 L (136-145) mEq/L Potassium 5.1 (3.5-5.1) mEq/L Chloride 104 (98-107) mEq/L Carbon Dioxide 18 L (21-32) mEq/L Anion Gap 16.1 H (5-15) BUN 43 H (7-18) mg/dL Creatinine 2.3 H (0.55-1.02) mg/dL Est Cr Clr Drug Dosing 29.19 mL/min Estimated GFR (MDRD) 22 (>60) mL/min BUN/Creatinine Ratio 18.7 H (14-18) Glucose 469 H (74-106) mg/dL Calcium 7.8 L (8.5-10.1) mg/dL Total Bilirubin 0.1 L (0.2-1.0) mg/dL AST 5 L (15-37) U/L ALT 6 L (14-59) U/L Alkaline Phosphatase 149 H (46-116) U/L C-Reactive Protein 0.7 (<1.0) mg/dL Total Protein 6.8 (6.4-8.2) g/dl Albumin 2.5 L (3.4-5.0) g/dl Globulin 4.3 gm/dL Albumin/Globulin Ratio 0.6 L (1-2) Meds: Medications Discontinued Medications Generic Name Dose Route Start Last Admin Trade Name Freq PRN Reason Stop Dose Admin Ibuprofen 600 mg 01/12/20 16:03 01/12/20 16:09 Motrin PO 01/12/20 16:04 600 mg ONETIME ONE Administration - Re-Assessments/Exams Free Text/Narrative Re-Assessment/Exam: 49-year-old female presenting to the emergency department with complaints of an area of redness and induration to her left wrist. She was started on doxycycline on 08 January at the [facility]in [facility]. They sent her here with concerns at the area may need I&D. We will ultrasound the area to see if there is a fluid abscess. Have ordered CBC, CMP, CRP. 01/12/20 17:00 Hematology was significant for WBC minimally elevated 11.4, hemoglobin no low at 9.5, sodium 133, CO2 18, anion gap 16.1, BUN 43, creatinine 2.3. Patient had blood work done here on 05 January and the values of her blood work are fairly similar to what they are today. There is no redness extending beyond the borders of the induration. Patient has been on doxycycline for 3 days, however it takes 2 days to reach an appropriate blood concentration to actually treat the infection. I did marked the area of induration with a skin marker as well as an area slightly outlining this. We will discharge her back to the [facility] with instructions to return if the area of induration is spreading. I will also allow for them to give her Tylenol in addition to the ibuprofen that she has been taking. Discussed this with the patient and she is in agreement. Discharge instructions as documented. Departure - Departure Time of Disposition: 17:03 Disposition: Home, Self-Care 01 Condition: Good Clinical Impression: Cellulitis Qualifiers: Site of cellulitis: extremity Site of cellulitis of extremity: upper extremity Laterality: left Qualified Code(s): L03.114 - Cellulitis of left upper limb - Discharge Information *PRESCRIPTION DRUG MONITORING PROGRAM REVIEWED*: No *COPY OF PRESCRIPTION DRUG MONITORING REPORT IN PATIENT ROS: No Instructions: Cellulitis, Adult Referrals: PCP,None [Primary Care Provider] - Additional Instructions: You were seen in the emergency department today for evaluation of a small area of infection to your left wrist. Blood work and an ultrasound of the area was done. Your blood work is consistent with the blood work completed previously indicating that there is no sign of a worsening infection. The ultrasound showed that there is not a fluid filled abscess that would benefit from drainage. As we discussed, doxycycline is an excellent antibiotic, however it takes 2 days to reach a therapeutic level in the blood for it to actually treat the infection. Based on this, the antibiotic is only been working for 1 day. We have marked the area of infection on your wrist, as well as an additional outer te-moak. If the redness and swelling should extend to this outer te-moak, would recommend that you return to the ER for reevaluation. You may also begin to use Tylenol 650 mg every 4 hours as needed for pain in addition to the ibuprofen that you are currently receiving. Return to ER for any new or worsening symptoms of concern. Sepsis Event Note (ED) - Evaluation Sepsis Screening Result: No Definite Risk - Focused Exam Vital Signs: Vital Signs Temp Pulse Resp BP Pulse Ox 01/12/20 14:40 97.7 F 86 18 153/88 H 99
== END 2020-01-12 17:15 | disposition home or self-care (01) ==
LOC: JD.ED 13:33
DX: L03.114 Cellulitis of left upper limb (principal); I12.9 Hypertensive chronic kidney disease with stage 1 through stage 4 chronic kidney disease, or unspecified chronic kidney disease; N18.9 Chronic kidney disease, unspecified; J44.9 Chronic obstructive pulmonary disease, unspecified; E11.40 Type 2 diabetes mellitus with diabetic neuropathy, unspecified; E66.9 Obesity, unspecified; F41.9 Anxiety disorder, unspecified; F32.9 Major depressive disorder, single episode, unspecified; E11.22 Type 2 diabetes mellitus with diabetic chronic kidney disease; F17.210 Nicotine dependence, cigarettes, uncomplicated; Z91.013 Allergy to seafood; Z79.4 Long term (current) use of insulin; Z79.899 Other long term (current) drug therapy
CPT/HCPCS: 36415; 76881; 80053; 85025; 86140; 99283; A9270; 99282

== ENCOUNTER 2020-01-22 10:35 | Emergency (ER) | payer MEDICAID, OTHER ==
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
== END 2020-01-22 16:55 ==
LOC: JD.ED 10:35
DX: F15.10 Other stimulant abuse, uncomplicated (principal); F22 Delusional disorders; I12.9 Hypertensive chronic kidney disease with stage 1 through stage 4 chronic kidney disease, or unspecified chronic kidney disease; N18.9 Chronic kidney disease, unspecified; J44.9 Chronic obstructive pulmonary disease, unspecified; E11.22 Type 2 diabetes mellitus with diabetic chronic kidney disease; Z20.828 Contact with and (suspected) exposure to other viral communicable diseases; E66.9 Obesity, unspecified; E11.40 Type 2 diabetes mellitus with diabetic neuropathy, unspecified; Z68.41 Body mass index [BMI] 40.0-44.9, adult; F32.9 Major depressive disorder, single episode, unspecified; F17.210 Nicotine dependence, cigarettes, uncomplicated; Z79.4 Long term (current) use of insulin; Z91.013 Allergy to seafood; Z79.899 Other long term (current) drug therapy
CPT/HCPCS: 36415; 80053; 80306; 80307; 84443; 85025; 99284; 99285; U0002